=== PATIENT | female | born 1975 | race Caucasian/White ===

== ENCOUNTER → 2020-03-26 | Outpatient (CLI) | payer MEDICARE, OTHER ==
--- NOTE | 2020-03-26 09:28 | US ---
EXAMINATION TYPE: US abdomen complete DATE OF EXAM: 03/26/2020 COMPARISON: US August 25, 2010 CLINICAL HISTORY: R94.5 Abn Liver function test. Patient stated takes at least 5 medications.Gallblad willie removed per patient. EXAM MEASUREMENTS: Liver Length: 10.2 Gallbladder Wall: surgically removed CBD: 0.4m Spleen: 10.4 Right Kidney: 9.1 x 5.3 x 5.0cm Left Kidney: 9.1 x 4.4 x 4.4cm Pancreas: hyperechoic Liver: right lobe not well seen in any patient positions due to overlying bowel gas, periportal wall brightness is noted in left lobe Gallbladder: surgically removed Evidence for sonographic Kumar's sign: no CBD: wnl Spleen: multiple small granulomas noted throughout Right Kidney: No hydronephrosis or masses seen Left Kidney: No hydronephrosis or masses seen Upper IVC: wnl Abd Aorta: size is wnl,but mildly widened at upper aorta compared to mid and distal aorta Gallbladder noted surgically absent. IMPRESSION: Suboptimal study. Some heterogeneity of liver without worrisome mass or ductal dilatation . No ascites noted.
== END | disposition home or self-care (01) ==
LOC: RADUSWWP 08:04
PROVIDERS: ATTEND Family Medicine
DX: R94.5 Abnormal results of liver function studies (principal)
CPT/HCPCS: 76700

== ENCOUNTER → 2020-09-10 | Outpatient (CLI) | payer MEDICARE, OTHER ==
--- NOTE | 2020-09-10 14:18 | MM ---
Reason for exam: screening (asymptomatic). Baseline mammogram. History: Patient is nulliparous. Family history of breast cancer in paternal grandmother at age 60. Physical Findings: Nurse did not find any significant physical abnormalities on exam. MG 3D Screening Mammo W/Cad Bilateral CC and MLO view(s) were taken. Finding #1: There is a 3 mm equal density (isodense) mass in the upper outer quadrant of the right breast consistent with lymph node. Finding #2: There are typically benign calcifications in the left breast. These results were verbally communicated with the patient and result sheet given to the patient on 09/10/20. ASSESSMENT: Probably benign, BI-RAD 3 RECOMMENDATION: Follow-up diagnostic mammogram of the right breast in 6 months.
== END | disposition home or self-care (01) ==
LOC: RADMAMWWP 13:12
PROVIDERS: ATTEND Family Medicine
DX: Z12.31 Encounter for screening mammogram for malignant neoplasm of breast (principal)
CPT/HCPCS: 77063; 77067

== ENCOUNTER 2021-03-29 20:12 | Inpatient (IN) | payer MEDICARE, OTHER ==
[2021-03-29] MEDS ORDERED: SODIUM CHLORIDE 0.9% 1,000 ML IV STA (21:15)
[2021-03-29] MEDS ORDERED: fentaNYL (PF) 50 MCG/ML 2 ML AMP IVP STA (21:21)
--- NOTE | 2021-03-29 21:38 | ED ---
General Adult HPI - General Chief complaint: Abdominal Pain Stated complaint: Abdominal Pain Time Seen by Provider: 03/29/21 20:14 Source: EMS Mode of arrival: EMS Limitations: no limitations - History of Present Illness Initial comments: 45-year-old female with a past medical history of muscular dystrophy presents to the emergency room for a chief complaint of abdominal pain. Patient has had abdominal pain since this morning on the left side. Patient was seen at [facility] and diagnosed with a large ovarian cyst. Her urine pregnan cy test was negative. Lactic acid was normal at 1.1. CBC did reveal a normal hemoglobin of 14.6. Pelvic ultrasound revealed a 8.9 x 6.1 x 8.8 cm on the left ovary. There is color flow adjacent to the cyst no torsion identified. CT revealed a left ovarian cyst measuring 8.2 x 7.2 cm. No free fluid within the pelvis. No dilated tubular structure or inflammatory changes evident. - Related Data Home Medications Medication Instructions Recorded Confirmed Acyclovir 400 mg PO HS 03/29/21 03/29/21 Cholecalciferol (Vitamin D3) 125 mcg PO HS 03/29/21 03/29/21 [Vitamin D3 (125 MCG = 5,000 IU)] Escitalopram [Lexapro] 20 mg PO HS 03/29/21 03/29/21 guanFACINE HCL [guanFACINE HCL ER] 1 mg PO HS 03/29/21 03/29/21 Allergies Allergy/AdvReac Type Severity Reaction Status Date / Time hydromorphone [From Dilaudid] AdvReac Confusion Verified 03/29/21 21:28 Review of Systems ROS Statement: Those systems with pertinent positive or pertinent negative responses have been documented in the HPI. ROS Other: All systems not noted in ROS Statement are negative. Past Medical History Additional Past Medical History / Comment(s): , SORAIDA TSANG 2 History of Any Multi-Drug Resistant Organisms: None Reported Past Surgical History: Appendectomy, Cholecystectomy, Tubal Ligation Past Psychological History: Anxiety, Depression Smoking Status: Never smoker Past Alcohol Use History: None Reported Past Drug Use History: None Reported General Exam Limitations: no limitations General appearance: alert, in no apparent distress Head exam: Present: atraumatic Eye exam: Present: normal appearance, PERRL, EOMI. Absent: scleral icterus, conjunctival injection ENT exam: Present: normal exam, mucous membranes moist Neck exam: Present: normal inspection, full ROM. Absent: tenderness Respiratory exam: Present: normal lung sounds bilaterally. Absent: respiratory distress, wheezes Cardiovascular Exam: Present: regular rate, normal rhythm, normal heart sounds GI/Abdominal exam: Present: soft, tenderness (Left lower quadrant abdominal tenderness.), normal bowel sounds. Absent: distended Neurological exam: Present: alert Course Vital Signs 03/29/21 03/29/21 03/29/21 20:17 20:56 22:21 Temperature 97 F L Pulse Rate 46 L 49 L 46 L Respiratory 18 18 18 Rate Blood Pressure 84/63 92/50 90/61 O2 Sat by Pulse 99 98 96 Oximetry EKG Findings - EKG Comments: EKG Findings:: Sinus bradycardia, first-degree block, ventricular rate 47, QRS duration 104, QTC 430 Medical Decision Making - Medical Decision Making Pt was transferred from [facility]. Vitals are stable. Patient's blood pressure is in the 90s over the 60s however mother states that her systolic blood pressure never gets over 100. Slight sinus bradycardia in the high 40s. EKG was obtained. No evidence of second or third degree block. Patient does have T-wave inversions, troponin normal, however is not complaining of any chest pain or shortness of breath at this time. There are no previous EKGs to compare. Only complaint is lower abdominal pain. She does have tenderness in the lower abdomen. Laboratory evaluation was repeated. Hemoglobin is consistent, was 14 here in the emergency room. As noted CT and ultrasound were reviewed which showed a large 8 cm x 7.2 cm left ovarian cyst. Ultrasound showed blood flow to the ovary on the left. No evidence for free fluid in the pelvis. Patient was given pain medication which did help somewhat with her symptoms. She was evaluated by Dr. Butler at bedside. At this time patient will be admitted to medicine with SPECIAL EDUCATION SCIENCE TEACHER consult for intractable abdominal pain. - Lab Data Result diagrams: 03/29/21 22:14 03/29/21 22:14 Lab Results 03/29/21 03/29/21 Range/Units 22:14 22:14 WBC 8.0 (3.8-10.6) k/uL RBC 4.91 (3.80-5.40) m/uL Hgb 14.0 (11.4-16.0) gm/dL Hct 46.2 H (34.0-46.0) % MCV 94.2 (80.0-100.0) fL MCH 28.5 (25.0-35.0) pg MCHC 30.2 L (31.0-37.0) g/dL RDW 14.0 (11.5-15.5) % Plt Count 204 (150-450) k/uL MPV 8.4 Neutrophils % 63 % Lymphocytes % 25 % Monocytes % 6 % Eosinophils % 3 % Basophils % 1 % Neutrophils # 5.0 (1.3-7.7) k/uL Lymphocytes # 2.0 (1.0-4.8) k/uL Monocytes # 0.4 (0-1.0) k/uL Eosinophils # 0.2 (0-0.7) k/uL Basophils # 0.1 (0-0.2) k/uL Sodium 138 (137-145) mmol/L Potassium 4.2 (3.5-5.1) mmol/L Chloride 108 H (98-107) mmol/L Carbon Dioxide 27 (22-30) mmol/L Anion Gap 3 mmol/L BUN 9 (7-17) mg/dL Creatinine 0.47 L (0.52-1.04) mg/dL Est GFR (CKD-EPI)AfAm >90 (>60 ml/min/1.73 sqM) Est GFR (CKD-EPI)NonAf >90 (>60 ml/min/1.73 sqM) Glucose 91 (74-99) mg/dL Calcium 8.1 L (8.4-10.2) mg/dL Total Bilirubin 1.5 H (0.2-1.3) mg/dL AST 202 H (14-36) U/L ALT 95 H (4-34) U/L Alkaline Phosphatase 224 H (38-126) U/L Total Protein 5.4 L (6.3-8.2) g/dL Albumin 2.9 L (3.5-5.0) g/dL HCG, Quant <2.4 mIU/mL Disposition Clinical Impression: Ovarian cyst, Intractable abdominal pain, Bradycardia Disposition: ADMITTED IP TO THIS HOSP Is patient prescribed a controlled substance at d/c from ED?: No Referrals: Janis Billy MD [Primary Care Provider] - 1-2 days Time of Disposition: 23:14
[2021-03-29 22:37] LABS: Basophils # (A) 0.1 k/uL (0-0.2); Basophils % (A) 1 %; Eosinophils # (A) 0.2 k/uL (0-0.7); Eosinophils % (A) 3 %; HCT 46.2 % (34.0-46.0); Lymphocytes % (A) 25 %; MCH 28.5 pg (25.0-35.0); MCHC 30.2 g/dL (31.0-37.0); MCV 94.2 fL (80.0-100.0); Mean Platelet Volume 8.4; Monocytes # (A) 0.4 k/uL (0-1.0); Monocytes % (A) 6 %; Neutrophils % (A) 63 %; Platelet Count 204 k/uL (150-450); RBC 4.91 m/uL (3.80-5.40)
[2021-03-29 22:40] LABS: ALT 95 U/L (4-34); AST 202 U/L (14-36); African American GFR (CKD) >90 (>60 ml/min/1.73 sqM); Albumin 2.9 g/dL (3.5-5.0); Alkaline Phosphatase 224 U/L (38-126); Anion Gap 3 mmol/L; Blood Urea Nitrogen 9 mg/dL (7-17); Calcium 8.1 mg/dL (8.4-10.2); Carbon Dioxide 27 mmol/L (22-30); Chloride 108 mmol/L (98-107); Glucose 91 mg/dL (74-99); Non-African American GFR(CKD) >90 (>60 ml/min/1.73 sqM); Potassium 4.2 mmol/L (3.5-5.1); Sodium 138 mmol/L (137-145); Total Bilirubin 1.5 mg/dL (0.2-1.3); Total Protein 5.4 g/dL (6.3-8.2)
[2021-03-29 22:56] LABS: HCG,Quantitative Serum <2.4 mIU/mL
[2021-03-29] MEDS ORDERED: traMADol 50 MG TAB PO PRN (23:15)
[2021-03-29] MEDS ORDERED: NALOXONE 0.4 MG/ML 1 ML VIAL IV PRN (23:15)
[2021-03-29] MEDS ORDERED: ACETAMINOPHEN TAB 325 MG TAB PO PRN (23:15)
[2021-03-29] MEDS ORDERED: ONDANSETRON 4 MG/2 ML VIAL IVP PRN (23:15)
[2021-03-30 00:25] LABS: Appearance,Urine Clear (Clear); Bilirubin,Urine Negative (Negative); Blood,Urine Negative (Negative); Color,Urine Yellow; Glucose,Urine (UA) Negative (Negative); Ketones,Urine Negative (Negative); Leukocyte Esterase,Urine Negative (Negative); Nitrite,Urine Negative (Negative); Protein,Urine Trace (Negative); Urobilinogen,Urine <2.0 mg/dL (<2.0)
[2021-03-30 00:27] LABS: Specific Gravity,Urine >1.050 (1.001-1.035)
[2021-03-30] MEDS: SODIUM CHLORIDE 0.9% 1,000 ML IV SCH ×4 (00:45→20:49)
--- NOTE | 2021-03-30 02:57 | P.HPIM ---
History of Present Illness H&P Date: 03/29/21 Chief Complaint: abd pain 45 year old female with muscular dystrophy comes in today as a transfer from [facility] after being diagnosed with ovarian cyst , for ELECTRONICS SCALE TESTER eval. patient started having sudden onset severe lower abd pain today, 8/10 in severity , sharp radiates to the groin, associated with nausea but no vomiting, no fever, no urinary changes no diarrhea no vaginal or GI bleeding. she denies having any similar pain in the past. no recent travel, or trauma. no bowel or urinary changes. patient HCG was negative , vaginal US showed large ovarian cyst with positive blood flow. she also has elevated liver enzymes , abd CT showed no gall stones , blood work showed normal hemoglobin , no leukocytosis , no electrolyte abnormalities. LA was wnl. patient BP was in the 90s and HR in the 40s, however, she claims that this is her baseline. EKG showed 1st degree AVB, diffuse T wave inversion , no old EKG to compare, she denies any chest pain or trouble breathing, Trops negative Review of Systems Pertinent positives as noted in HPI. All other systems were reviewed and are negative Past Medical History Additional Past Medical History / Comment(s): , SORAIDA TSANG 2 History of Any Multi-Drug Resistant Organisms: None Reported Past Surgical History: Appendectomy, Cholecystectomy, Tubal Ligation Past Psychological History: Anxiety, Depression Smoking Status: Never smoker Past Alcohol Use History: None Reported Past Drug Use History: None Reported - Past Family History family Family Medical History: No Reported History Medications and Allergies Home Medications Medication Instructions Recorded Confirmed Type Acyclovir 400 mg PO HS 03/29/21 03/29/21 History Cholecalciferol (Vitamin D3) 125 mcg PO HS 03/29/21 03/29/21 History [Vitamin D3 (125 MCG = 5,000 IU)] Escitalopram [Lexapro] 20 mg PO HS 03/29/21 03/29/21 History guanFACINE HCL [guanFACINE HCL ER] 1 mg PO HS 03/29/21 03/29/21 History Allergies Allergy/AdvReac Type Severity Reaction Status Date / Time hydromorphone [From Dilaudid] AdvReac Confusion Verified 03/29/21 21:28 Physical Exam Vitals: Vital Signs Temp Pulse Resp BP Pulse Ox 03/29/21 22:21 46 L 18 90/61 96 03/29/21 20:56 49 L 18 92/50 98 03/29/21 20:17 97 F L 46 L 18 84/63 99 Intake and Output 03/29/21 03/29/21 03/30/21 14:59 22:59 06:59 Other: Weight 81.647 kg Constitutional: No acute distress, conversant, pleasant Eyes: Anicteric sclerae, moist conjunctiva, Pupils equal round reactive to light ENMT: NC/AT Oropharynx clear, no erythema, or exudates Neck: Supple, FROM, no masses, or JVD No carotid bruits No thyromegaly Lungs: Clear to auscultation Clear to percussion Normal respiratory effort, no accessory muscle use Cardiovascular: Heart regular in rate and rhythm, No murmurs, gallops, or rubs No peripheral edema Abdominal: Soft Nontender, no guarding, rebound or rigidity Abdomen moving with respiration Normoactive bowel sounds No hepatomegaly, No splenomegaly No palpable mass No abdominal wall hernia noted Skin: Normal temperature, tone, texture, turgor No induration No subcutaneous nodules No rash, lesions No ulcers Extremities: No digital cyanosis No clubbing Pedal pulses intact and symmetrical Radial pulses intact and symmetrical No calf tenderness Psychiatric: Alert and oriented to person, place and time Appropriate affect fair judgement Neuro Muscles Strength 5/5 in all 4 extremities Sensation to light touch grossly present throughout Cranial nerves II-XII grossly intact No focal sensory deficits Lymphatics: no palpable cervical or supraclavicular , or inguinal lymph nodes Results CBC & Chem 7: 03/29/21 22:14 03/29/21 22:14 Labs: Abnormal Lab Results - Last 24 Hours (Table) 03/29/21 03/29/21 Range/Units 22:14 22:14 Hct 46.2 H (34.0-46.0) % MCHC 30.2 L (31.0-37.0) g/dL Chloride 108 H (98-107) mmol/L Creatinine 0.47 L (0.52-1.04) mg/dL Calcium 8.1 L (8.4-10.2) mg/dL Total Bilirubin 1.5 H (0.2-1.3) mg/dL AST 202 H (14-36) U/L ALT 95 H (4-34) U/L Alkaline Phosphatase 224 H (38-126) U/L Total Protein 5.4 L (6.3-8.2) g/dL Albumin 2.9 L (3.5-5.0) g/dL Assessment and Plan Assessment: Large left sided ovarian cyst no evidence of torsion, blood flow is positive BHCG negative CT abd confirmed ovarian cyst , no other pathology no free fluid in the pelvis ELECTRONICS SCALE TESTER consult pain control IVF hydration with normal saline asymptomatic sinus bradycardia diffuse T wave inversion consider OP follow up no report of chest pain or SOB trops negative elevated liver enzymes no liver pathology detected on CT consider OP follow up resume home medications patient on Alpha agonist Tenex full code DVT PPX mechanical anticpated length of stay < 2 midnights anticipated discharge home
--- NOTE | 2021-03-30 09:27 | P.PN ---
<Gt Velasquez - Last Filed: 03/30/21 12:29> Subjective Progress Note Date: 03/30/21 Hospital course: Patient is a very pleasant 45-year-old female with a past medical history of m uscular dystrophy. She was transferred to our facility from [facility] after being diagnosed with a large left ovarian cyst. Patient initially presented with sudden onset severe lower abdominal pain radiating into her groin. Transvaginal ultrasound revealed a large left ovarian cyst with positive blood flow and no evidence of torsion. CT abdomen and pelvis confirmed ovarian cysts and showed no free fluid in the pelvis. HCG negative for . Upon arrival to our facility, patient was also found to have asymptomatic bradycardia with heart rate in the 40s to 50s (which patient reports is her normal baseline heart rate) and newly elevated liver enzymes with bilirubin 1.5, AST 202, ALT 95, and alkaline phosphatase of 224. Urinalysis negative for infection. EKG showing sinus bradycardia at 47 bpm with a first-degree AV block with AK interval of 264 ms and T-wave inversion in inferior, septal and anterolateral leads of II, III, aVF, and V1 through V6. No previous EKGs available for comparison. Troponin negative. Covid 19 PCR positive, patient asymptomatic denying any fever, chills, diaphoresis, chest pain, shortness of breath, dyspnea with exertion, weakness, cough, congestion, or body aches. Physical exam: Patient seen and fully evaluated at bedside this morning. She was sitting on the phone talking to her mom. She reports continued suprapubic pain/discomfort along with right lower and left lower quadrant pain. She denies having any vaginal discharge or bleeding. Denies having any urinary frequency, urgency, hematuria, or dysuria. 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 Lab reports this was likely a false negative as could have been poor specimen or possibly early onset infection. Patient to remain in contact plus droplet precautions. Awaiting CIVIL SERVICE WORKER to assess and further recommendations. Patient's heart rate in the 50s and she remains asymptomatic. Vital signs reviewed and stable. General: Nontoxic, no distress and appears stated age. Derm: Skin warm and dry, normal coloration for ethnicity. Head: Atraumatic, normocephalic and symmetric. Eyes: EOMs intact, no lid lag, and anicteric sclera Mouth: no lip lesions, mucus membranes moist Cardiovascular: regular rate and rhythm with normal S1S2, no murmur, positive posterior tibial pulses bilaterally, and cap refill < 2 seconds. Lungs: Respirations even, regular, and unlabored on room air. Lungs CTA bilaterally, no rhonchi, no rales, no wheezing, and no accessory muscle usage. Abdominal: soft, nontender to palpation, no guarding, no appreciable organomegaly Ext: ROM intact. No gross muscle atrophy, no edema, no contractures Neuro: Speech clear, face symmetrical and CN II-XII grossly intact with no noted focal neuro deficits Psych: Alert and oriented to person, place, time, and situation. Appropriate and pleasant affect. Assessment and Plan of Care: Large left ovarian cyst Lower abdominal pain -Transvaginal ultrasound revealed a large left ovarian cyst with positive blood flow and no evidence of torsion. -CT abdomen and pelvis confirmed ovarian cysts and showed no free fluid in the pelvis. -BHCG negative for . -CIVIL SERVICE WORKER consulted, awaiting recommendations. -NPO until cleared by CIVIL SERVICE WORKER -Continued hydration with IV fluids -Symptomatic care and pain management. Asymptomatic Covid 19 virus in vaccinated individual -Zinc, vitamin C, and vitamin D. -DVT prophylaxis with Lovenox -We will obtain inflammatory markers with repeat a.m. labs. -Contact plus droplet precautions to be maintained. Elevated liver enzymes Bilirubin 1.5, AST 202, ALT 95, and alkaline phosphatase of 224. No previous history of reported elevation of liver enzymes and no previous labs available for comparison. Elevated liver enzymes possibly secondary to Covid 19 virus infection vs adverse effects of medication. We will use caution with hepatotoxic medications. Hold Lexapro at this time as there is less than 1% chance Lexapro can cause hepatic failure, hepatic necrosis, hepatitis, increased liver enzymes, and increased serum bilirubin. Continued close monitoring with repeat a.m. labs. Asymptomatic bradycardia -Troponin negative per transfer document from [facility] -EKG showing sinus bradycardia at 47 bpm with a first-degree AV block with AK interval of 264 ms and T-wave inversion in inferior, septal and anterolateral leads of II, III, aVF, and V1 through V6. No previous EKGs available for comparison. Depression Continue daily medication regimen with Lexapro CODE STATUS: Full code DVT prophylaxis: Lovenox Discussed with: Patient and RN Anticipated discharge date: Clinical course to determine Anticipated discharge place: Home A total of 45 minutes was spent on the care of this complex patient more than 50% of the time was spent in counseling and care coordination. Objective - Vital Signs Vital signs: Vital Signs Temp 97.6 F 03/30/21 08:57 Pulse 60 03/30/21 08:57 Resp 16 03/30/21 08:57 BP 95/64 03/30/21 08:57 Pulse Ox 96 03/30/21 08:57 Intake & Output 03/29/21 03/30/21 03/30/21 18:59 06:59 18:59 Weight 81.647 kg - Labs CBC & Chem 7: 03/29/21 22:14 03/29/21 22:14 Labs: Abnormal Lab Results - Last 24 Hours (Table) 03/29/21 03/29/21 03/29/21 Range/Units 22:14 22:14 23:43 Hct 46.2 H (34.0-46.0) % MCHC 30.2 L (31.0-37.0) g/dL Chloride 108 H (98-107) mmol/L Creatinine 0.47 L (0.52-1.04) mg/dL Calcium 8.1 L (8.4-10.2) mg/dL Total Bilirubin 1.5 H (0.2-1.3) mg/dL AST 202 H (14-36) U/L ALT 95 H (4-34) U/L Alkaline Phosphatase 224 H (38-126) U/L Total Protein 5.4 L (6.3-8.2) g/dL Albumin 2.9 L (3.5-5.0) g/dL Ur Specific [place] >1.050 H (1.001-1.035) Urine Protein Trace H (Negative) Coronavirus (PCR) (Not Detectd) 03/29/21 Range/Units 23:47 Hct (34.0-46.0) % MCHC (31.0-37.0) g/dL Chloride (98-107) mmol/L Creatinine (0.52-1.04) mg/dL Calcium (8.4-10.2) mg/dL Total Bilirubin (0.2-1.3) mg/dL AST (14-36) U/L ALT (4-34) U/L Alkaline Phosphatase (38-126) U/L Total Protein (6.3-8.2) g/dL Albumin (3.5-5.0) g/dL Ur Specific [place] (1.001-1.035) Urine Protein (Negative) Coronavirus (PCR) Detected A (Not Detectd) <Xiomara Malik - Last Filed: 03/30/21 18:32> Objective - Vital Signs Vital signs: Vital Signs Temp 97.7 F 03/30/21 15:00 Pulse 91 03/30/21 15:00 Resp 16 03/30/21 15:00 BP 104/72 03/30/21 15:00 Pulse Ox 91 L 03/30/21 15:00 Intake & Output 03/29/21 03/30/21 03/30/21 18:59 06:59 18:59 Weight 81.647 kg 81.647 kg Other: # Voids 1 - Labs CBC & Chem 7: 03/29/21 22:14 03/29/21 22:14 Labs: Abnormal Lab Results - Last 24 Hours (Table) 03/29/21 03/29/21 03/29/21 Range/Units 22:14 22:14 23:43 Hct 46.2 H (34.0-46.0) % MCHC 30.2 L (31.0-37.0) g/dL Chloride 108 H (98-107) mmol/L Creatinine 0.47 L (0.52-1.04) mg/dL Calcium 8.1 L (8.4-10.2) mg/dL Total Bilirubin 1.5 H (0.2-1.3) mg/dL AST 202 H (14-36) U/L ALT 95 H (4-34) U/L Alkaline Phosphatase 224 H (38-126) U/L Total Protein 5.4 L (6.3-8.2) g/dL Albumin 2.9 L (3.5-5.0) g/dL Ur Specific [place] >1.050 H (1.001-1.035) Urine Protein Trace H (Negative) Coronavirus (PCR) (Not Detectd) 03/29/21 Range/Units 23:47 Hct (34.0-46.0) % MCHC (31.0-37.0) g/dL Chloride (98-107) mmol/L Creatinine (0.52-1.04) mg/dL Calcium (8.4-10.2) mg/dL Total Bilirubin (0.2-1.3) mg/dL AST (14-36) U/L ALT (4-34) U/L Alkaline Phosphatase (38-126) U/L Total Protein (6.3-8.2) g/dL Albumin (3.5-5.0) g/dL Ur Specific [place] (1.001-1.035) Urine Protein (Negative) Coronavirus (PCR) Detected A (Not Detectd) Assessment and Plan Assessment: I reviewed the documentation as provided by the MARTINA above, who is the original author of this note. I agree with the documented assessment and plan, with the following changes: None
--- NOTE | 2021-03-30 15:35 | P.CON ---
Consult Note - . Consult date: 03/30/21 Assessment/Plan:: This is a 45-year-old white female 0 last missed period March 15 which lasted for 3 days. Patient has muscular dystrophy and at physical therapy yesterday at the [facility] she developed a sharp sudden abd ominal pain. Sonogram was performed revealing a 8.9 x 6.1 x 8.8 cm clear simple cyst of the left ovary. There was no suspicion of torsion, good blood flow present. Right ovary measured 3.0 x 2.1 x 2.6 cm with good color flow. There was fluid noted in the cul-de-sac. Endometrium 91 mm, uterus measuring 8.6 x 4.2 x 4.9 cm. Patient was transferred to our hospital because of a lack of gynecologists at the [facility]. She has a positive culture test in our emergency room as of yesterday. At this time she states the pelvic pain has subsided. Past medical history is significant for muscular dystrophy, bladder incontinence, stomach problems. Past surgical history tubal ligation age 23, cholecystectomy, D&C. Gynecologic history menarche began at the age of 14 with 28-30 day interval and 3 day duration. She denies history of GC chlamydia or HPV infections. 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 She is currently sexually active with 1 partner. Social history patient is single, she has a boyfriend. She lives at home with her mom. She is unemployed. She denies tobacco, bleeding, illicit drug use. Social alcohol only. Family history mother has a history of poor health, she is in her 70s. Father age 57 of pneumonia, he was a heavy smoker. She has 3 half-brothers all of whom are healthy. A maternal grandmother has a history of breast cancer, but no other family history no cancers of the cervix, ovaries,:, Or uterus. Current medications acyclovir daily, Lexapro daily, another mood stabilizer, Lyrica daily, vitamin D3 daily, Vesicare daily. On exam patient is 5 foot 1 inch, 180 pounds, pulse 50, respirations 16, 98% O2 saturation, blood pressure 89/58. She has poor dentition. No obvious thyromegaly. Chest is clear in all villagran. Patient does have a cough. Cardiac exam reveals regular rate and rhythm. Abdomen is softly distended, no rebound or guarding. There is tenderness in bilateral lower quadrants and certainly a suggestion of fullness. Pelvic exam reveals nulliparous cervix, no CVA tenderness. Uterus is small and mobile. She does have tenderness to deep palpation in the left lower quadrant, but again no rebound noted. AST 103, ALTs 67, alk phos 224, WBC 6.0, hemoglobin 14.6, hematocrit 45.5, platelets 247,000. Electrolytes otherwise normal. Impression: 8.9 cm clear simple fluid filled left ovarian cyst, with associated pelvic pain. Pain improved over the past 24 hours. Active Co-vid infection noted. History of muscular dystrophy. Plan: At this time I would allow the patient to heal from the Covid perspective. I would not take a patient to the operating room for what appears to be a benign indication with an active respiratory/metabolic infection. OVA-1 testing has been drawn. The ovarian cyst does appear simple and benign in appearance, however the OVA-1 will help discern its etiology. Plan would be to follow-up in the office in 2 weeks. No intercourse. No heavy lifting, no further p hysical therapy. At that time we will evaluate and decide whether to proceed with conservative management and repeat the ultrasound in 2-3 months or proceed with surgical intervention. Signs and symptoms of torsion had been reviewed, none present sonographically and no signs on physical examination today. The case has been discussed with sound physicians. The patient understands the above discussion and is in agreement with this plan. Thank you for the consultation.
[2021-03-30] MEDS: CHOLECALCIFEROL 25 MCG (1000 IU) TABLET PO SCH (20:29)
[2021-03-30] MEDS ORDERED: ESCITALOPRAM 20 MG TAB PO SCH (21:00)
[2021-03-30] MEDS: guanFACINE 1 MG TAB PO SCH ×2 (22:40→22:48)
[2021-03-30] MEDS: ACYCLOVIR 200 MG CAP PO SCH (22:40)
[2021-03-31] MEDS: MORPHINE SULFATE 2 MG/ML SYRINGE IVP PRN ×2 (03:04→08:49)
[2021-03-31 07:58] LABS: ALT 199 U/L (4-34); AST 228 U/L (14-36); African American GFR (CKD) >90 (>60 ml/min/1.73 sqM); Albumin 3.1 g/dL (3.5-5.0); Albumin/Globulin Ratio 1.1; Alkaline Phosphatase 298 U/L (38-126); Anion Gap 4 mmol/L; Blood Urea Nitrogen 4 mg/dL (7-17); Carbon Dioxide 29 mmol/L (22-30); Chloride 109 mmol/L (98-107); Globulin 2.9 g/dL; Glucose 107 mg/dL (74-99); Magnesium 2.1 mg/dL (1.6-2.3); Non-African American GFR(CKD) >90 (>60 ml/min/1.73 sqM); Sodium 142 mmol/L (137-145); Total Bilirubin 1.2 mg/dL (0.2-1.3)
[2021-03-31 08:19] LABS: Potassium 4.9 mmol/L (3.5-5.1)
[2021-03-31] MEDS: ASCORBIC ACID 500 MG TAB PO SCH (08:53)
[2021-03-31] MEDS: ZINC SULFATE 220 MG CAP PO SCH (08:54)
[2021-03-31] MEDS: ENOXAPARIN 40 MG/0.4 ML SYRINGE SQ SCH (08:55)
[2021-03-31] MEDS ORDERED: REMDESIVIR 200 MG in SODIUM CHLORIDE 0.9% 250 ML IVPB ONE ×2 (09:22→17:00)
[2021-03-31] MEDS ORDERED: DEXAMETHASONE SOD PHOSPHATE 10 MG/ML 1 ML VIAL IV SCH (09:30)
[2021-03-31 09:54] LABS: HCT 52.9 % (37.2-46.3); HGB 15.3 g/dL (12.0-15.0); MCH 28.2 pg (27.0-32.0); MCHC 28.9 g/dL (32.0-37.0); MCV 97.4 fL (80.0-97.0); Mean Platelet Volume 12.4 fL (9.5-12.2); Platelet Count 205 X 10*3/uL (140-440); RBC 5.43 X 10*6/uL (4.10-5.20); RDW 14.7 % (11.5-14.5); WBC 7.76 X 10*3/uL (4.50-10.00)
[2021-03-31] MEDS: SODIUM CHLORIDE 0.9% 1,000 ML IV SCH ×3 (10:57→21:54)
--- NOTE | 2021-03-31 14:28 | CT ---
EXAMINATION TYPE: CT chest angio for PE DATE OF EXAM: 03/31/2021 COMPARISON: HISTORY: SOB, +covid CT DLP: 303.3 mGycm Automated exposure control for dose reduction was used. CONTRAST: CT Chest for pulmonary embolism performed with with IV Contrast, patient injected with 60cc mL of Iso basilia 370. FINDINGS: LUNGS: The lungs show bilateral air bronchograms, areas of consolidation, scattered perihilar groundg lass density consistent with possible underlying pneumonia. There is no pleural effusion or pneumot horax seen. The tracheobronchial tree is patent. MEDIASTINUM: There is satisfactory enhancement of the pulmonary artery and its branches, there is no CT evidence for pulmonary embolism. There are no greater than 1 cm hilar or mediastinal lymph nodes. No pericardial effusion is seen. Calcified nodule right lower lobe, calcified hilar and mediastin al nodes are present at pulmonary artery appears prominently AORTA: No additional significant abnormality is seen. OTHER: Patient is postcholecystectomy. Calcifications are scattered within the spleen.. IMPRESSION: No evident pulmonary embolism. Correlate for pneumonia, possible pulmonary artery hypertension. 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
--- NOTE | 2021-03-31 15:49 | P.PN ---
<Gt Velasquez - Last Filed: 03/31/21 15:23> Subjective Progress Note Date: 03/31/21 Hospital course: Patient is a very pleasant 45-year-old female with a past medical history of m uscular dystrophy. She was transferred to our facility from [facility] after being diagnosed with a large left ovarian cyst. Patient initially presented with sudden onset severe lower abdominal pain radiating into her groin. Transvaginal ultrasound revealed a large left ovarian cyst with positive blood flow and no evidence of torsion. CT abdomen and pelvis confirmed ovarian cysts and showed no free fluid in the pelvis. HCG negative for . Upon arrival to our facility, patient was also found to have asymptomatic bradycardia with heart rate in the 40s to 50s (which patient reports is her normal baseline heart rate) and newly elevated liver enzymes with bilirubin 1.5, AST 202, ALT 95, and alkaline phosphatase of 224. Urinalysis negative for infection. EKG showing sinus bradycardia at 47 bpm with a first-degree AV block with IL interval of 264 ms and T-wave inversion in inferior, septal and anterolateral leads of II, III, aVF, and V1 through V6. No previous EKGs available for comparison. Troponin negative. Covid 19 PCR positive, patient asymptomatic denying any fever, chills, diaphoresis, chest pain, shortness of breath, dyspnea with exertion, weakness, cough, congestion, or body aches. Physical exam: Patient seen and fully evaluated at bedside this morning. RN reports intermittent use of oxygen throughout the night. Patient does report using BiPAP with supplemental oxygen during the night secondary to her muscular dystrophy with impaired diaphragmatic muscle use. Patient currently denies feeling short of breath, cough, congestion, chest pain, palpitations or any other complaints at this time. We will obtain a CTA to rule out underlying process or PE and discontinue morphine as this may also cause hypoxia. Throughout morning patient was maintaining SpO2 greater than 92% on room air, however this afternoon patient is now requiring 3 L O2 with SpO2 of 91%. CTA was completed, negative for PE correlating for pneumonia with evidence of scattered perihilar groundglass densities and areas of consolidation. Patient being transferred from observation status to inpatient admission. Consult placed to pulmonology. Patient given first dose of Remdesevir and started on steroids with Decadron 6 mg daily. Vital signs reviewed and stable. General: Nontoxic, no distress and appears stated age. Derm: Skin warm and dry, normal coloration for ethnicity. Head: Atraumatic, normocephalic and symmetric. Eyes: EOMs intact, no lid lag, and anicteric sclera Mouth: no lip lesions, mucus membranes moist Cardiovascular: regular rate and rhythm with normal S1S2, no murmur, positive posterior tibial pulses bilaterally, and cap refill < 2 seconds. Lungs: Respirations even, regular, and unlabored on room air. Lungs CTA bilaterally, no rhonchi, no rales, no wheezing, and no accessory muscle usage. Abdominal: soft, nontender to palpation, no guarding, no appreciable organomegaly Ext: ROM intact. No gross muscle atrophy, no edema, no contractures Neuro: Speech clear, face symmetrical and CN II-XII grossly intact with no noted focal neuro deficits Psych: Alert and oriented to person, place, time, and situation. Appropriate and pleasant affect. Assessment and Plan of Care: Large left ovarian cyst Lower abdominal pain -Transvaginal ultrasound revealed a large left ovarian cyst with positive blood flow and no evidence of torsion. -CT abdomen and pelvis confirmed ovarian cysts and showed no free fluid in the pelvis. -BHCG negative for . -INSURANCE SALES PROFESSIONAL consulted, recommending patient follow-up with outpatient -Continued hydration with IV fluids -Symptomatic care and pain management. Covid 19 Pneumonia in vaccinated individual, initially asymptomatic now requiring oxygen supplementation Acute hypoxic respiratory failure secondary to Covid 19 pneumonia Muscular dystrophy with reported history of impaired diaphragmatic muscle resulting in dependence on nightly BiPAP and supplemental oxygen. -Patient initially asymptomatic, now requiring supplemental oxygen. Currently on 3 L O2 via nasal cannula with SpO2 of 91%. We will continue oxygenation as needed to maintain SpO2 greater than 90% and wean once patient tolerates. -Continue nightly BiPAP with supplemental oxygen as needed. -CTA was completed, negative for PE correlating for pneumonia with evidence of scattered perihilar groundglass densities and areas of consolidation. -Patient being transferred from observation status to inpatient admission. -Consult placed to pulmonology. -Patient given first dose of Remdesevir -Steroids with Decadron 6 mg daily. -Continue daily Zinc, vitamin C, and vitamin D. -DVT prophylaxis with Lovenox -We will obtain inflammatory markers with repeat a.m. labs. -Contact plus droplet precautions to be maintained. Elevated liver enzymes, improving Bilirubin 1.5, AST 202, ALT 95, and alkaline phosphatase of 224. No previous history of reported elevation of liver enzymes and no previous labs available for comparison. Elevated liver enzymes possibly secondary to Covid 19 virus infection and less likely vs adverse effects of medication lexapro and acyclovir. We will use caution with hepatotoxic medications. Continued close monitoring with repeat a.m. labs. Asymptomatic bradycardia -Troponin negative per transfer document from [facility] -EKG showing sinus bradycardia at 47 bpm with a first-degree AV block with IL interval of 264 ms and T-wave inversion in inferior, septal and anterolateral leads of II, III, aVF, and V1 through V6. No previous EKGs available for comparison. Depression Continue daily medication regimen with Lexapro CODE STATUS: Full code DVT prophylaxis: Lovenox Discussed with: Patient and RN Anticipated discharge date: Clinical course to determine Anticipated discharge place: Home A total of 45 minutes was spent on the care of this complex patient more than 50% of the time was spent in counseling and care coordination. Objective - Vital Signs Vital signs: Vital Signs Temp 98.2 F 03/31/21 08:48 Pulse 77 03/31/21 08:48 Resp 17 03/31/21 08:48 BP 109/67 03/31/21 08:48 Pulse Ox 91 L 03/31/21 08:48 Intake & Output 03/30/21 03/31/21 03/31/21 18:59 06:59 18:59 Intake Total 1560 Balance 1560 Weight 81.647 kg Intake: Intake, IV Titration 1560 Amount Sodium Chloride 0.9% 1, 1560 000 ml @ 130 mls/hr IV . Q7H42M [facility] Rx#:[id number] Other: # Voids 1 3 - Labs CBC & Chem 7: 03/31/21 06:12 03/31/21 06:12 Labs: Abnormal Lab Results - Last 24 Hours (Table) 03/31/21 03/31/21 03/31/21 Range/Units 06:12 06:12 06:12 RBC 5.43 H (4.10-5.20) X 10*6/uL Hgb 15.3 H (12.0-15.0) g/dL Hct 52.9 H (37.2-46.3) % MCV 97.4 H (80.0-97.0) fL MCHC 28.9 L (32.0-37.0) g/dL RDW 14.7 H (11.5-14.5) % MPV 12.4 H (9.5-12.2) fL Chloride 109 H (98-107) mmol/L BUN 4 L (7-17) mg/dL Creatinine 0.48 L (0.52-1.04) mg/dL Glucose 107 H (74-99) mg/dL AST 228 H (14-36) U/L ALT 199 H (4-34) U/L Alkaline Phosphatase 298 H (38-126) U/L C-Reactive Protein 1.2 H (<1.0) mg/dL Total Protein 6.0 L (6.3-8.2) g/dL Albumin 3.1 L (3.5-5.0) g/dL <Xiomara Malik - Last Filed: 03/31/21 18:44> Subjective Patient seen and evaluated by me independently. Patient was also seen by MARTINA, the original author of this note. I am in agreement with the subjective, physical exam, and assessment and plan as documented with the addition/changes of my exam and assessment below. Gen: awake, alert HEENT: normocephalic, atraumatic, good hearing acuity, moist mucous membranes Resp: good air exchange, breathing comfortably with no accessory muscle use, bilateral crackles CVS: good distal perfusion x 4, GI: soft, NTTP, ND : no SPT, no CVAT, muñoz catheter not present MSK: no pitting edema, no clubbing Neuro: non-focal, moving all extremities Psych: cooperative, euthymic mood Plan: CT chest Pulmonary consult Decadron Remdesivir Oxygen when necessary Follow inflammatory markers Objective - Vital Signs Vital signs: Vital Signs Temp 98.2 F 03/31/21 08:48 Pulse 76 03/31/21 15:00 Resp 18 03/31/21 15:00 BP 103/67 03/31/21 15:00 Pulse Ox 91 L 03/31/21 15:00 Intake & Output 03/30/21 03/31/21 03/31/21 18:59 06:59 18:59 Intake Total 1560 Balance 1560 Weight 81.647 kg Intake: Intake, IV Titration 1560 Amount Sodium Chloride 0.9% 1, 1560 000 ml @ 130 mls/hr IV . Q7H42M [facility] Rx#:[id number] Other: # Voids 1 3 4 - Labs CBC & Chem 7: 03/31/21 06:12 03/31/21 06:12 Labs: Abnormal Lab Results - Last 24 Hours (Table) 03/31/21 03/31/21 03/31/21 Range/Units 06:12 06:12 06:12 RBC 5.43 H (4.10-5.20) X 10*6/uL Hgb 15.3 H (12.0-15.0) g/dL Hct 52.9 H (37.2-46.3) % MCV 97.4 H (80.0-97.0) fL MCHC 28.9 L (32.0-37.0) g/dL RDW 14.7 H (11.5-14.5) % MPV 12.4 H (9.5-12.2) fL Chloride 109 H (98-107) mmol/L BUN 4 L (7-17) mg/dL Creatinine 0.48 L (0.52-1.04) mg/dL Glucose 107 H (74-99) mg/dL AST 228 H (14-36) U/L ALT 199 H (4-34) U/L Alkaline Phosphatase 298 H (38-126) U/L C-Reactive Protein 1.2 H (<1.0) mg/dL Total Protein 6.0 L (6.3-8.2) g/dL Albumin 3.1 L (3.5-5.0) g/dL
[2021-03-31] MEDS: DEXAMETHASONE SOD PHOSPHATE 10 MG/ML 1 ML VIAL IV SCH (16:19)
[2021-03-31 17:17] LABS: Erythrocyte Sedimentation Rate 4 mm/Hr (0-20)
[2021-03-31] MEDS: ACYCLOVIR 200 MG CAP PO SCH (21:03)
[2021-03-31] MEDS: ESCITALOPRAM 20 MG TAB PO SCH (21:03)
[2021-03-31] MEDS: CHOLECALCIFEROL 25 MCG (1000 IU) TABLET PO SCH (21:03)
[2021-03-31] MEDS: guanFACINE 1 MG TAB PO SCH (21:03)
[2021-04-01] MEDS: SODIUM CHLORIDE 0.9% 1,000 ML IV SCH ×2 (04:42→14:03)
[2021-04-01] MEDS: PROCHLORPERAZINE INJ 10 MG/2 ML VIAL IVP PRN ×2 (05:33→20:20)
[2021-04-01 06:50] LABS: ALT 166 U/L (4-34); AST 122 U/L (14-36); African American GFR (CKD) >90 (>60 ml/min/1.73 sqM); Albumin 2.9 g/dL (3.5-5.0); Albumin/Globulin Ratio 1.1; Alkaline Phosphatase 269 U/L (38-126); Anion Gap 4 mmol/L; Blood Urea Nitrogen 4 mg/dL (7-17); Calcium 8.9 mg/dL (8.4-10.2); Carbon Dioxide 27 mmol/L (22-30); Chloride 109 mmol/L (98-107); Globulin 2.6 g/dL; Glucose 132 mg/dL (74-99); Non-African American GFR(CKD) >90 (>60 ml/min/1.73 sqM); Potassium 4.3 mmol/L (3.5-5.1); Sodium 140 mmol/L (137-145); Total Bilirubin 0.8 mg/dL (0.2-1.3); Total Protein 5.5 g/dL (6.3-8.2)
[2021-04-01 07:55] LABS: C Reactive Protein 2.9 mg/dL (<1.0)
[2021-04-01] MEDS: DEXAMETHASONE SOD PHOSPHATE 10 MG/ML 1 ML VIAL IV SCH (08:18)
[2021-04-01] MEDS: ENOXAPARIN 40 MG/0.4 ML SYRINGE SQ SCH (08:19)
[2021-04-01] MEDS: ZINC SULFATE 220 MG CAP PO SCH (08:19)
[2021-04-01] MEDS: ASCORBIC ACID 500 MG TAB PO SCH (08:19)
[2021-04-01 09:28] LABS: Basophils # (A) 0.01 X 10*3/uL (0.00-0.10); Basophils % (A) 0.2 %; Eosinophils # (A) 0 X 10*3/uL (0.04-0.35); Eosinophils % (A) 0 %; HCT 44.7 % (37.2-46.3); HGB 13.5 g/dL (12.0-15.0); Lymphocytes # (A) 0.75 X 10*3/uL (0.90-5.00); Lymphocytes % (A) 14.8 %; MCH 29.4 pg (27.0-32.0); MCHC 30.2 g/dL (32.0-37.0); MCV 97.4 fL (80.0-97.0); Mean Platelet Volume 11.6 fL (9.5-12.2); Monocytes # (A) 0.18 X 10*3/uL (0.20-1.00); Monocytes % (A) 3.5 %; Neutrophils # (A) 4.12 X 10*3/uL (1.80-7.70); Neutrophils % (A) 81.1 %; Platelet Count 184 X 10*3/uL (140-440); RBC 4.59 X 10*6/uL (4.10-5.20); RDW 14.6 % (11.5-14.5); WBC 5.08 X 10*3/uL (4.50-10.00)
--- NOTE | 2021-04-01 11:09 | P.CNPUL ---
History of Present Illness Consult date: 04/01/21 Requesting physician: Ginger Devi Reason for consult: dyspnea, hypoxemia, abnormal CXR/CT, other Chief complaint: Abdominal pain. History of present illness: Pulmonary/critical care consult dated 04/01/2021. 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 The patient was apparently seen recently at [facility] diagnosed with a large ovarian cyst. Her urine test was negative. She also did test positive for coronavirus. Her CAT scan did reveal some bilateral infiltrates, potentially consistent with coronavirus associated pneumonia. The patient really wasn't having much in the way of pulmonary complaints although, the patient was found to be hypoxemic on room air. She was seen by [employer]MI[employer] INTER[employer] physician. Currently, the patient is a very poor historian. Very lethargic and sleepy and would not talk to me. She doesn't remember how long she's not been feeling well. She's currently on 3 L nasal cannula and getting saline at 1 30 mL an hour. Her primary care provider is Dr. Billy. She appears not to have any respiratory distress. She had a CT angiogram that was negative for pulmonary embolism. It does show evidence of bilateral infiltrates. White count 5.08, hemoglobin 13.5, hematocrit 44.7, platelet count 184,000. D-dimer is 0.38. Sodium 140, potassium 4.3, chlorides 109, CO2 27, anion gap 4, BUN and creatinine were 4 and 0.41. AST was 122, ALT 166, LDH 518, C-reactive protein 2.9, and urine was negative. Her first coronavirus testing was positive on March 29, and subsequently on March 30 was negative. Review of Systems REVIEW OF SYSTEMS: CONSTITUTIONAL: [Negative.] NEUROLOGIC: [ Negative.] HEENT: [ Negative.] CARDIAC: [Negative.] PULMONARY: [Negative.] GI: Abdominal pain. : [Negative.] RHEUMATOLOGIC: [ Negative.] IMMUNOLOGIC: [ Negative.] ENDOCRINE: [Negative. ] DERMATOLOGIC: [Negative.] Past Medical History Additional Past Medical History / Comment(s): , HERPES TYPE 2 History of Any Multi-Drug Resistant Organisms: None Reported Past Surgical History: Appendectomy, Cholecystectomy, Tubal Ligation Smoking Status: Never smoker - Past Family History family Family Medical History: No Reported History Medications and Allergies Home Medications Medication Instructions Recorded Confirmed Type Acyclovir 400 mg PO HS 03/29/21 03/29/21 History Cholecalciferol (Vitamin D3) 125 mcg PO HS 03/29/21 03/29/21 History [Vitamin D3 (125 MCG = 5,000 IU)] Escitalopram [Lexapro] 20 mg PO HS 03/29/21 03/29/21 History guanFACINE HCL [guanFACINE HCL ER] 1 mg PO HS 03/29/21 03/29/21 History Allergies Allergy/AdvReac Type Severity Reaction Status Date / Time hydromorphone [From Dilaudid] AdvReac Confusion Verified 03/29/21 21:28 Physical Exam Osteopathic Statement: *. No significant issues noted on an osteopathic structural exam other than those noted in the History and Physical/Consult. Vitals: Vital Signs Temp Pulse Resp BP Pulse Ox 04/01/21 08:00 78 18 04/01/21 07:00 98.0 F 78 18 99/63 92 L 04/01/21 01:50 98.1 F 75 18 110/64 94 L 03/31/21 20:00 98.0 F 78 18 106/69 92 L 03/31/21 15:00 76 18 103/67 91 L 03/31/21 14:00 18 03/31/21 12:59 93 L Intake and Output 03/31/21 04/01/21 04/01/21 22:59 06:59 14:59 Intake Total 20 Balance 20 Intake: IV 20 Invasive Line 1 10 Invasive Line 2 10 Other: Voiding Method Toilet Toilet Toilet # Voids 1 3 No acute distress, sleepy and lethargic, not a good historian, and can't even remember how long she's been sick. HEENT examination is grossly unremarkable. Neck supple. Full range of motion. No adenopathy thyromegaly or neck vein distention. Cardiovascular examination reveals regular rhythm rate. S1-S2 normal. No S3 or S4. No discernible murmur noted. Heart rate 70 bpm. Lungs reveal mostly clear breath sounds. The patient does not take deep breath s. Mild scattered rhonchi are noted. No wheezes or crackles. Abdomen is soft. No tenderness on palpation. Bowel sounds are noted. No masses. Extremities are intact. No cyanosis clubbing or edema. Skin is without rash or lesion. Neurologic examination is brief but nonfocal. Results - Laboratory Findings CBC and BMP: 04/01/21 05:57 04/01/21 05:57 PT/INR, D-dimer D-Dimer 0.38 mg/L FEU (<0.60) 04/01/21 05:57 Abnormal lab findings: Abnormal Labs 03/29/21 03/29/21 03/29/21 22:14 22:14 23:43 RBC Hgb Hct 46.2 H MCV MCHC 30.2 L RDW MPV Lymphocytes # Monocytes # Eosinophils # Chloride 108 H BUN Creatinine 0.47 L Glucose Calcium 8.1 L Total Bilirubin 1.5 H AST 202 H ALT 95 H Alkaline Phosphatase 224 H C-Reactive Protein Total Protein 5.4 L Albumin 2.9 L Ur Specific [place] >1.050 H Urine Protein Trace H Coronavirus (PCR) 03/29/21 03/31/21 03/31/21 23:47 06:12 06:12 RBC 5.43 H Hgb 15.3 H Hct 52.9 H MCV 97.4 H MCHC 28.9 L RDW 14.7 H MPV 12.4 H Lymphocytes # Monocytes # Eosinophils # Chloride 109 H BUN 4 L Creatinine 0.48 L Glucose 107 H Calcium Total Bilirubin AST 228 H ALT 199 H Alkaline Phosphatase 298 H C-Reactive Protein Total Protein 6.0 L Albumin 3.1 L Ur Specific [place] Urine Protein Coronavirus (PCR) Detected A 03/31/21 04/01/21 04/01/21 06:12 05:57 05:57 RBC Hgb Hct MCV 97.4 H MCHC 30.2 L RDW 14.6 H MPV Lymphocytes # 0.75 L Monocytes # 0.18 L Eosinophils # 0 L Chloride BUN Creatinine Glucose Calcium Total Bilirubin AST ALT Alkaline Phosphatase C-Reactive Protein 1.2 H 2.9 H Total Protein Albumin Ur Specific [place] Urine Protein Coronavirus (PCR) 04/01/21 05:57 RBC Hgb Hct MCV MCHC RDW MPV Lymphocytes # Monocytes # Eosinophils # Chloride 109 H BUN 4 L Creatinine 0.41 L Glucose 132 H Calcium Total Bilirubin AST 122 H ALT 166 H Alkaline Phosphatase 269 H C-Reactive Protein Total Protein 5.5 L Albumin 2.9 L Ur Specific [place] Urine Protein Coronavirus (PCR) - Diagnostic Findings CT scan - chest: image reviewed Assessment and Plan Assessment: Mild to moderate hypoxemic respiratory failure secondary to coronavirus associated pneumonia. Abdominal pain, thought to be related to an ovarian cyst. History of myotonic muscular dystrophy. History of anxiety and depression. Lifelong nontobacco user. No significant family history. Plan: Plan dated 04/01/2021. The patient herself was not a particularly good historian. I got most of the information about this patient from her nurse, Naina. The patient's current ly on 3 L nasal cannula. When she takes her oxygen off, her saturations dropped to 88%. The patient's getting saline at 130 mL an hour. He angiogram was negative for pulmonary embolus some. The patient has no known history of prior lung disease. She is a lifelong nonsmoker. The patient is on vitamin C, vitamin D3, and zinc. In addition, she is on Decadron and Lovenox. Additional recommendations and suggestions are forthcoming. I also noticed that she is on REM. I was not able to determine how long this patient has been sick. Time with Patient: Greater than 30
[2021-04-01 12:27] LABS: Ferritin 25.3 ng/mL (10.0-291.0)
--- NOTE | 2021-04-01 16:34 | P.PN ---
<Gt Velasquez - Last Filed: 04/01/21 16:21> Subjective Progress Note Date: 04/01/21 Hospital course: Patient is a very pleasant 45-year-old female with a past medical history of m uscular dystrophy. She was transferred to our facility from [facility] after being diagnosed with a large left ovarian cyst. Patient initially presented with sudden onset severe lower abdominal pain radiating into her groin. Transvaginal ultrasound revealed a large left ovarian cyst with positive blood flow and no evidence of torsion. CT abdomen and pelvis confirmed ovarian cysts and showed no free fluid in the pelvis. HCG negative for . Upon arrival to our facility, patient was also found to have asymptomatic bradycardia with heart rate in the 40s to 50s (which patient reports is her normal baseline heart rate) and newly elevated liver enzymes with bilirubin 1.5, AST 202, ALT 95, and alkaline phosphatase of 224. Urinalysis negative for infection. EKG showing sinus bradycardia at 47 bpm with a first-degree AV block with TX interval of 264 ms and T-wave inversion in inferior, septal and anterolateral leads of II, III, aVF, and V1 through V6. No previous EKGs available for comparison. Troponin negative. Covid 19 PCR positive, patient asymptomatic denying any fever, chills, diaphoresis, chest pain, shortness of breath, dyspnea with exertion, weakness, cough, congestion, or body aches. Patient demanded repeat Covid testing which was subsequently negative. Patient remained asymptomatic for approximately 24 hours and then was noted to become hypoxic req uiring supplemental oxygenation. Patient was sent down for CT PE which was negative for PE correlating for pneumonia with evidence of scattered perihilar groundglass opacities typical of Covid 19 pneumonia/pneumonitis. Physical exam: Patient seen and fully evaluated at bedside this morning. She remains on 3 L O2 via nasal cannula with SpO2 ranging from 91-92%. Patient did use CPAP throughout the night. D-dimer was negative at 0.38. CRP slightly elevated at 2.9 LDH normal findings at 518. Patient reports feeling "tired very tired". She denies having any other complaints at this time including headache, lightheadedness, dizziness, chest pain, palpitations, shortness of breath, cough, congestion, nausea, vomiting, or any other complaints. Patient received first dose of Remdesivir yesterday and scheduled to receive second dose today. Remains on Decadron, vitamin C, vitamin D, and zinc. Continue Lovenox DVT prophylaxis. Awaiting recommendations from pulmonology. Vital signs reviewed and stable. General: Nontoxic, no distress and appears stated age. Derm: Skin warm and dry, normal coloration for ethnicity. Head: Atraumatic, normocephalic and symmetric. Eyes: EOMs intact, no lid lag, and anicteric sclera Mouth: no lip lesions, mucus membranes moist Cardiovascular: regular rate and rhythm with normal S1S2, no murmur, positive posterior tibial pulses bilaterally, and cap refill < 2 seconds. Lungs: Respirations even, regular, and unlabored on room air. Lungs diminished at bases with no rhonchi, no rales, no wheezing, and no accessory muscle usage. Abdominal: soft, nontender to palpation, no guarding, no appreciable organomegaly Ext: ROM intact. No gross muscle atrophy, no edema, no contractures Neuro: Speech clear, face symmetrical and CN II-XII grossly intact with no noted focal neuro deficits Psych: Alert and oriented to person, place, time, and situation. Appropriate and pleasant affect. Assessment and Plan of Care: Covid 19 Pneumonia in vaccinated individual, initially asymptomatic now requiring oxygen supplementation Acute hypoxic respiratory failure secondary to Covid 19 pneumonia Muscular dystrophy with reported history of impaired diaphragmatic muscle resulting in dependence on nightly BiPAP and supplemental oxygen. -Patient initially asymptomatic, now requiring supplemental oxygen. Currently on 3 L O2 via nasal cannula with SpO2 of 91%. We will continue oxygenation as needed to maintain SpO2 greater than 90% and wean once patient tolerates. -Continue nightly BiPAP with supplemental oxygen as needed. -CTA was completed, negative for PE correlating for pneumonia with evidence of scattered perihilar groundglass densities and areas of consolidation. -Patient being transferred from observation status to inpatient admission. -Consult placed to pulmonology. -Remdesevir Day 2 of 5 -Steroids with Decadron 6 mg daily. Day 2 of 10 -Continue daily Zinc, vitamin C, and vitamin D. -DVT prophylaxis with Lovenox -Follow inflammatory markers. -Contact plus droplet precautions to be maintained. Large left ovarian cyst Lower abdominal pain -Transvaginal ultrasound revealed a large left ovarian cyst with positive blood flow and no evidence of torsion. -CT abdomen and pelvis confirmed ovarian cysts and showed no free fluid in the pelvis. -CG negative for . -COURT REGISTRY OFFICER consulted, recommending patient follow-up outpatient once treatment of Covid 19 virus -Symptomatic care and pain management. Elevated liver enzymes, improving Bilirubin 0.8, AST 122, ALP 166, alkaline phosphatase of 269. No previous history of reported elevation of liver enzymes and no previous labs available for comparison. Elevated liver enzymes possibly secondary to Covid 19 virus infection and less likely vs adverse effects of medication lexapro and acyclovir. We will use caution with hepatotoxic medications. Continued close monitoring with repeat a.m. labs. Asymptomatic bradycardia -Troponin negative per transfer document from [facility] -EKG showing sinus bradycardia at 47 bpm with a first-degree AV block with TX interval of 264 ms and T-wave inversion in inferior, septal and anterolateral leads of II, III, aVF, and V1 through V6. No previous EKGs available for comparison. Depression Continue daily medication regimen with Lexapro CODE STATUS: Full code DVT prophylaxis: Lovenox Discussed with: Patient and RN Anticipated discharge date: Clinical course to determine Anticipated discharge place: Home A total of 45 minutes was spent on the care of this complex patient more than 50% of the time was spent in counseling and care coordination. Objective - Vital Signs Vital signs: Vital Signs Temp 98.0 F 04/01/21 07:00 Pulse 78 04/01/21 08:00 Resp 18 04/01/21 08:00 BP 99/63 04/01/21 07:00 Pulse Ox 92 L 04/01/21 07:00 Intake & Output 03/31/21 04/01/21 04/01/21 18:59 06:59 18:59 Intake Total 20 Balance 20 Intake: IV 20 Invasive Line 1 10 Invasive Line 2 10 Other: Voiding Method Toilet Toilet # Voids 4 3 - Labs CBC & Chem 7: 04/01/21 05:57 04/01/21 05:57 Labs: Abnormal Lab Results - Last 24 Hours (Table) 04/01/21 04/01/21 04/01/21 Range/Units 05:57 05:57 05:57 MCV 97.4 H (80.0-97.0) fL MCHC 30.2 L (32.0-37.0) g/dL RDW 14.6 H (11.5-14.5) % Lymphocytes # 0.75 L (0.90-5.00) X 10*3/uL Monocytes # 0.18 L (0.20-1.00) X 10*3/uL Eosinophils # 0 L (0.04-0.35) X 10*3/uL Chloride 109 H (98-107) mmol/L BUN 4 L (7-17) mg/dL Creatinine 0.41 L (0.52-1.04) mg/dL Glucose 132 H (74-99) mg/dL AST 122 H (14-36) U/L ALT 166 H (4-34) U/L Alkaline Phosphatase 269 H (38-126) U/L C-Reactive Protein 2.9 H (<1.0) mg/dL Total Protein 5.5 L (6.3-8.2) g/dL Albumin 2.9 L (3.5-5.0) g/dL <Xiomara Malik - Last Filed: 04/01/21 17:11> Subjective I reviewed the documentation as provided by the MARTINA above, who is the original author of this note. I agree with the documented assessment and plan, with the following changes: remdesivir was canceled today Objective - Vital Signs Vital signs: Vital Signs Temp 97.9 F 04/01/21 14:33 Pulse 67 04/01/21 14:33 Resp 18 04/01/21 14:33 BP 100/65 04/01/21 14:33 Pulse Ox 91 L 04/01/21 14:33 Intake & Output 03/31/21 04/01/21 04/01/21 18:59 06:59 18:59 Intake Total 20 Balance 20 Intake: IV 20 Invasive Line 1 10 Invasive Line 2 10 Other: Voiding Method Toilet Toilet # Voids 4 3 2 - Labs CBC & Chem 7: 04/01/21 05:57 04/01/21 05:57 Labs: Abnormal Lab Results - Last 24 Hours (Table) 04/01/21 04/01/21 04/01/21 Range/Units 05:57 05:57 05:57 MCV 97.4 H (80.0-97.0) fL MCHC 30.2 L (32.0-37.0) g/dL RDW 14.6 H (11.5-14.5) % Lymphocytes # 0.75 L (0.90-5.00) X 10*3/uL Monocytes # 0.18 L (0.20-1.00) X 10*3/uL Eosinophils # 0 L (0.04-0.35) X 10*3/uL Chloride 109 H (98-107) mmol/L BUN 4 L (7-17) mg/dL Creatinine 0.41 L (0.52-1.04) mg/dL Glucose 132 H (74-99) mg/dL AST 122 H (14-36) U/L ALT 166 H (4-34) U/L Alkaline Phosphatase 269 H (38-126) U/L C-Reactive Protein 2.9 H (<1.0) mg/dL Total Protein 5.5 L (6.3-8.2) g/dL Albumin 2.9 L (3.5-5.0) g/dL
[2021-04-01] MEDS: CHOLECALCIFEROL 25 MCG (1000 IU) TABLET PO SCH (20:20)
[2021-04-01] MEDS: guanFACINE 1 MG TAB PO SCH (20:20)
[2021-04-01] MEDS: ESCITALOPRAM 20 MG TAB PO SCH (20:20)
[2021-04-01] MEDS: ACYCLOVIR 200 MG CAP PO SCH (20:20)
[2021-04-02] MEDS: PROCHLORPERAZINE INJ 10 MG/2 ML VIAL IVP PRN (06:14)
--- NOTE | 2021-04-02 09:09 | P.CRDCN ---
History of Present Illness Consult date: 04/02/21 History of present illness: CHIEF COMPLAINT: Sinus pause HISTORY OF PRESENT ILLNESS: This is a 45-year-old female with a past medical history significant for muscular dystrophy with impaired diaphragmatic muscle with nightly CPAP use and depression. Patient does not follow with a chemistry technical officer. We have been asked to see the patient in consultation for sinus pauses. Patient was originally at [facility] and transferred to [facility] secondary to large left ovarian cyst. Patient was also found to be positive for Covid 19. Patient apparently has a low heart rate at baseline. She does not take beta blockers. Telemetry overnight revealed 2-3 second pauses. Patient usually wears a CPAP overnight, however, she did not wear it last night. Patient was asymptomatic. Patient has no complaints of chest pain or pressure. DIAGNOSTICS: EKG reveals sinus mechanism with diffuse T-wave inversions. First degree AV block. Chest CTA: No evident pulmonary embolus and. Correlate for pneumonia, possible pulmonary artery hypertension. Laboratory data: WBC 5.08. Hemoglobin 13.5. Platelet count 184. Sodium 140. Potassium 4.3. BUN 4. Creatinine 0.41. D-dimer 0.38. AST 122. ALT 166. Alkaline phosphatase 269. Current home cardiac medications include none REVIEW OF SYSTEMS: Thorough review of systems not completed secondary to limited evaluation/examination due to Covid19 PHYSICAL EXAM: Thorough physical exam not completed secondary to limited evaluation/examination due to Covid19 ASSESSMENT: Covid 19 pneumonia Acute hypoxic respiratory failure Muscular dystrophy with impaired diaphragmatic muscle with nightly CPAP use Sinus pauses Asymptomatic bradycardia Elevated LFTs Large left ovarian cyst Depression PLAN: Obtain 2D echo to assess cardiac structure and function Avoid AV maciej blocking agents Check TSH Continue telemetry monitoring Recommend use of CPAP overnight Further recommendations pending patient course Nurse practitioner note has been reviewed by physician. Signing provider agrees with the documented findings, assessment, and plan of care. Past Medical History Additional Past Medical History / Comment(s): , HERPES TYPE 2 History of Any Multi-Drug Resistant Organisms: None Reported Past Surgical History: Appendectomy, Cholecystectomy, Tubal Ligation Smoking Status: Never smoker - Past Family History family Family Medical History: No Reported History Medications and Allergies Home Medications Medication Instructions Recorded Confirmed Type Acyclovir 400 mg PO HS 03/29/21 03/29/21 History Cholecalciferol (Vitamin D3) 125 mcg PO HS 03/29/21 03/29/21 History [Vitamin D3 (125 MCG = 5,000 IU)] Escitalopram [Lexapro] 20 mg PO HS 03/29/21 03/29/21 History guanFACINE HCL [guanFACINE HCL ER] 1 mg PO HS 03/29/21 03/29/21 History Allergies Allergy/AdvReac Type Severity Reaction Status Date / Time hydromorphone [From Dilaudid] AdvReac Confusion Verified 03/29/21 21:28 Physical Exam Vitals: Vital Signs Temp Pulse Resp BP Pulse Ox 04/02/21 04:10 53 L 15 100/57 94 L 04/01/21 22:45 97.5 F L 60 17 132/73 91 L 04/01/21 19:51 97.6 F 53 L 18 111/64 90 L 04/01/21 14:33 97.9 F 67 18 100/65 91 L 04/01/21 14:00 78 18 Intake and Output 04/01/21 04/02/21 04/02/21 22:59 06:59 14:59 Other: Voiding Method Toilet Toilet # Voids 1 1 Weight 71 kg Results 04/01/21 05:57 04/01/21 05:57 CBC 04/01/21 Range/Units 05:57 WBC 5.08 (4.50-10.00) X 10*3/uL RBC 4.59 (4.10-5.20) X 10*6/uL Hgb 13.5 (12.0-15.0) g/dL Hct 44.7 (37.2-46.3) % Plt Count 184 (140-440) X 10*3/uL Current Medications Generic Name Dose Route Start Last Admin Trade Name Freq PRN Reason Stop Dose Admin Acetaminophen 650 mg 03/29/21 23:15 03/31/21 14:24 Acetaminophen Tab 325 Mg Tab PO 650 mg Q6HR PRN Administration Mild Pain or Fever > 100.5 Acyclovir 400 mg 03/30/21 21:00 04/01/21 20:20 Acyclovir 200 Mg Cap PO 400 mg HS KEVEN Administration Ascorbic Acid 1,000 mg 03/31/21 09:00 04/01/21 08:19 Ascorbic Acid 500 Mg Tab PO 1,000 mg DAILY KEVEN Administration Cholecalciferol 125 mcg 03/30/21 21:00 04/01/21 20:20 Cholecalciferol 25 Mcg (1000 Iu) Tablet PO 125 mcg HS KEVEN Administration Dexamethasone Sodium Phosphate 6 mg 03/31/21 15:30 04/01/21 08:18 Dexamethasone Sod Phosphate 10 Mg/Ml 1 Ml Vial IV 6 mg DAILY KEVEN Administration Enoxaparin Sodium 40 mg 03/31/21 09:00 04/01/21 08:19 Enoxaparin 40 Mg/0.4 Ml Syringe SQ 40 mg DAILY KEVEN Administration Escitalopram Oxalate 20 mg 03/31/21 21:00 04/01/21 20:20 Escitalopram 20 Mg Tab PO 20 mg HS KEVEN Administration Guanfacine HCl 1 mg 03/30/21 21:00 04/01/21 20:20 Guanfacine 1 Mg Tab PO 1 mg HS KEVEN Administration Naloxone HCl 0.2 mg 03/29/21 23:15 Naloxone 0.4 Mg/Ml 1 Ml Vial IV Q2M PRN Opioid Reversal Prochlorperazine Edisylate 10 mg 03/30/21 08:48 04/02/21 06:14 Prochlorperazine Inj 10 Mg/2 Ml Vial IVP 10 mg Q6H PRN Administration Nausea Tramadol HCl 50 mg 03/29/21 23:15 03/30/21 20:28 Tramadol 50 Mg Tab PO 50 mg Q6H PRN Administration Moderate Pain Zinc Sulfate 220 mg 03/31/21 09:00 04/01/21 08:19 Zinc Sulfate 220 Mg Cap PO 220 mg DAILY KEVEN Administration Intake and Output 04/01/21 04/02/21 04/02/21 22:59 06:59 14:59 Other: Voiding Method Toilet Toilet # Voids 1 1 Weight 71 kg 04/01/21 05:57 04/01/21 05:57
[2021-04-02] MEDS: ENOXAPARIN 40 MG/0.4 ML SYRINGE SQ SCH (09:18)
[2021-04-02] MEDS: ASCORBIC ACID 500 MG TAB PO SCH (09:18)
[2021-04-02] MEDS: ZINC SULFATE 220 MG CAP PO SCH (09:18)
[2021-04-02] MEDS: DEXAMETHASONE SOD PHOSPHATE 10 MG/ML 1 ML VIAL IV SCH (09:18)
[2021-04-02 10:32] LABS: T4, Free (Free Thyroxine) 1.18 ng/dL (0.78-2.19)
--- NOTE | 2021-04-02 13:28 | P.PN ---
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 The patient was apparently seen recently at [facility] diagnosed with a large ovarian cyst. Her urine test was negative. She also did test positive for coronavirus. Her CAT scan did reveal some bilateral infiltrates, potentially consistent with coronavirus associated pneumonia. The patient really wasn't having much in the way of pulmonary complaints although, the patient was found to be hypoxemic on room air. She was seen by HEAD OF VISUAL MERCHANDISING physician. Currently, the patient is a very poor historian. Very lethargic and sleepy and would not talk to me. She doesn't remember how long she's not been feeling well. She's currently on 3 L nasal cannula and getting saline at 1 30 mL an hour. Her primary care provider is Dr. Billy. She appears not to have any respiratory distress. She had a CT angiogram that was negative for pulmonary embolism. It does show evidence of bilateral infiltrates. White count 5.08, hemoglobin 13.5, hematocrit 44.7, platelet count 184,000. D-dimer is 0.38. Sodium 140, potassium 4.3, chlorides 109, CO2 27, anion gap 4, BUN and creatinine were 4 and 0.41. AST was 122, ALT 166, LDH 518, C-reactive protein 2.9, and urine was negative. Her first coron avirus testing was positive on March 29, and subsequently on March 30 was negative. The patient is seen today to 04/02/2021 in follow-up on the selective care unit. She is currently resting comfortably in bed. She still somewhat drowsy. She does awake to verbal stimuli. She is maintaining O2 saturations in the 90s on 3 L/m per nasal cannula. She's been afebrile. Hemodynamically stable. She is continued on Decadron, Lovenox, vitamin supplements. Objective - Vital Signs Vital signs: Vital Signs Temp 98.2 F 04/02/21 08:00 Pulse 71 04/02/21 12:00 Resp 18 04/02/21 12:00 BP 127/61 04/02/21 12:00 Pulse Ox 89 L 04/02/21 12:00 Intake & Output 04/01/21 04/02/2121 18:59 06:59 18:59 Weight 71 kg Other: Voiding Method Toilet Toilet # Voids 2 1 1 # Bowel Movements 1 - Exam 45-year-old female patient. No acute distress, sleepy and lethargic, not a good historian, on 3 L nasal cannula HEENT examination is grossly unremarkable. Neck supple. Full range of motion. No adenopathy thyromegaly or neck vein dis tention. Cardiovascular examination reveals regular rhythm rate. S1-S2 normal. No S3 or S4. No discernible murmur noted. Heart rate 70 bpm. Lungs reveal mostly clear breath sounds. The patient does not take deep breaths. Mild scattered rhonchi are noted. No wheezes or crackles. Abdomen is soft. No tenderness on palpation. Bowel sounds are noted. No masses. Extremities are intact. No cyanosis clubbing or edema. Skin is without rash or lesion. Neurologic examination is brief but nonfocal. - Labs CBC & Chem 7: 04/01/21 05:57 04/01/21 05:57 Labs: Abnormal Lab Results - Last 24 Hours (Table) 04/01/21 Range/Units 05:57 TSH 0.247 L (0.465-4.680) mIU/L Assessment and Plan Assessment: 1 Mild to moderate hypoxemic respiratory failure secondary to coronavirus associated pneumonia. 2 Abdominal pain, thought to be related to an ovarian cyst. 3 History of myotonic muscular dystrophy. 4 History of anxiety and depression. 5 Lifelong nontobacco user. Plan: The patient was seen and evaluated by Dr. Dorsey Titrate the FiO2 as tolerated Continue the current treatment plan Follow-up chest x-ray and labs in a.m. I, the cosigning physician, performed a history & physical examination of the patient. Lungs sounds with crackles in the posterior bases. Maintaining good O2 saturations in the 90s on 3 L/m per nasal cannula I discussed the assessment and plan of care with my nurse practitioner, Amarilys Bowman. I attest to the above note as dictated by her.
--- NOTE | 2021-04-02 16:59 | P.PN ---
Subjective Progress Note Date: 04/02/21 No significant events overnight. Patient remains on 3 L of oxygen, saturation has been in the low 90s at rest. She denies any shortness of breath except when ambulating. No chest pain, no cough, no fevers or chills Objective - Vital Signs Vital signs: Vital Signs Temp 98.2 F 04/02/21 08:00 Pulse 71 04/02/21 12:00 Resp 18 04/02/21 12:00 BP 127/61 04/02/21 12:00 Pulse Ox 89 L 04/02/21 12:00 Intake & Output 04/01/21 04/02/21 04/02/21 18:59 06:59 18:59 Intake Total 240 Balance 240 Weight 71 kg Intake: Oral 240 Other: Voiding Method Toilet Toilet # Voids 2 1 1 # Bowel Movements 1 - Exam Vital signs reviewed and stable. General: Nontoxic, no distress and appears stated age. Derm: Skin warm and dry, normal coloration for ethnicity. Head: Atraumatic, normocephalic and symmetric. Eyes: EOMs intact, no lid lag, and anicteric sclera Mouth: no lip lesions, mucus membranes moist Cardiovascular: regular rate and rhythm with normal S1S2, no murmur, positive posterior tibial pulses bilaterally, and cap refill < 2 seconds. Lungs: Respirations even, regular, and unlabored on room air. Lungs diminished at bases with no rhonchi, no rales, no wheezing, and no accessory muscle usage. Abdominal: soft, nontender to palpation, no guarding, no appreciable organomegaly Ext: ROM intact. No gross muscle atrophy, no edema, no contractures Neuro: Speech clear, face symmetrical and CN II-XII grossly intact with no noted focal neuro deficits - Labs CBC & Chem 7: 04/01/21 05:57 04/01/21 05:57 Labs: Abnormal Lab Results - Last 24 Hours (Table) 04/01/21 Range/Units 05:57 TSH 0.247 L (0.465-4.680) mIU/L Assessment and Plan Plan: Covid 19 Pneumonia in vaccinated individual Currently on 3 L of oxygen via nasal cannula -Remdesevir Day 3 of 5 -Steroids with Decadron 6 mg daily. Day 3 of 10 -Continue daily Zinc, vitamin C, and vitamin D. -DVT prophylaxis with Lovenox -Follow inflammatory markers. -Contact plus droplet precautions to be maintained -Muscular dystrophy with reported history of impaired diaphragmatic muscle resulting in dependence on nightly BiPAP and supplemental oxygen -Patient further input from pulmonology Acute hypoxic respiratory failure -Secondary to above -Currently on 3 L of oxygen via nasal cannula, no history of home oxygen use -Maintain saturation at 90% Large left ovarian cyst Lower abdominal pain -Transvaginal ultrasound revealed a large left ovarian cyst with positive blood flow and no evidence of torsion. -CT abdomen and pelvis confirmed ovarian cysts and showed no free fluid in the pelvis. -BHCG negative for . -MORTGAGE SPECIALIST consulted, recommending patient follow-up outpatient once treated for Covid 19 -Symptomatic care and pain management. Elevated liver enzymes, improving Bilirubin 0.8, AST 122, ALP 166, alkaline phosphatase of 269. No previous history of reported elevation of liver enzymes and no previous labs available for comparison. Elevated liver enzymes possibly secondary to Covid 19 virus infection and less likely vs adverse effects of medication lexapro and acyclovir. Continued close monitoring with repeat a.m. labs. Asymptomatic bradycardia -Troponin negative per transfer document from [facility] -EKG showing sinus bradycardia at 47 bpm with a first-degree AV block with KS interval of 264 ms and T-wave inversion in inferior, septal and anterolateral leads of II, III, aVF, and V1 through V6. No previous EKGs available for comparison. -EKG changes could be due to dilution of pericarditis which initially presented with diffuse ST elevation -Follow up on 2-D echo Depression Continue daily medication regimen with Lexapro Time with Patient: Greater than 30
[2021-04-02] MEDS: guanFACINE 1 MG TAB PO SCH (21:16)
[2021-04-02] MEDS: ACYCLOVIR 200 MG CAP PO SCH (21:16)
[2021-04-02] MEDS: CHOLECALCIFEROL 25 MCG (1000 IU) TABLET PO SCH (21:17)
[2021-04-02] MEDS: ESCITALOPRAM 20 MG TAB PO SCH (21:17)
[2021-04-03 08:30] LABS: ALT 117 U/L (4-34); AST 46 U/L (14-36); African American GFR (CKD) >90 (>60 ml/min/1.73 sqM); Albumin 3.1 g/dL (3.5-5.0); Alkaline Phosphatase 223 U/L (38-126); Anion Gap 5 mmol/L; Blood Urea Nitrogen 11 mg/dL (7-17); Calcium 9.1 mg/dL (8.4-10.2); Carbon Dioxide 30 mmol/L (22-30); Chloride 104 mmol/L (98-107); Glucose 90 mg/dL (74-99); LDH 372 U/L (313-618); Magnesium 2.1 mg/dL (1.6-2.3); Non-African American GFR(CKD) >90 (>60 ml/min/1.73 sqM); Potassium 3.8 mmol/L (3.5-5.1); Sodium 139 mmol/L (137-145); Total Bilirubin 1.1 mg/dL (0.2-1.3); Total Protein 5.8 g/dL (6.3-8.2)
[2021-04-03 09:15] LABS: Basophils % (A) 1 %; Eosinophils # (A) 0.1 k/uL (0-0.7); Eosinophils % (A) 1 %; HGB 14.6 gm/dL (11.4-16.0); Lymphocytes # (A) 1.9 k/uL (1.0-4.8); Lymphocytes % (A) 24 %; MCHC 32.4 g/dL (31.0-37.0); MCV 92.8 fL (80.0-100.0); Mean Platelet Volume 12.9; Monocytes # (A) 0.7 k/uL (0-1.0); Monocytes % (A) 8 %; Neutrophils # (A) 5.1 k/uL (1.3-7.7); Neutrophils % (A) 64 %; Platelet Count 153 k/uL (150-450); RBC 4.85 m/uL (3.80-5.40); RDW 14.6 % (11.5-15.5)
[2021-04-03] MEDS: ENOXAPARIN 40 MG/0.4 ML SYRINGE SQ SCH (09:15)
[2021-04-03] MEDS: ZINC SULFATE 220 MG CAP PO SCH (09:15)
[2021-04-03] MEDS: DEXAMETHASONE SOD PHOSPHATE 10 MG/ML 1 ML VIAL IV SCH (09:15)
[2021-04-03] MEDS: ASCORBIC ACID 500 MG TAB PO SCH (09:15)
--- NOTE | 2021-04-03 09:25 | XR ---
EXAMINATION TYPE: XR chest 1V portable DATE OF EXAM: 04/03/2021 COMPARISON: 05/31/2011 HISTORY: 45 years Female. STUDY INDICATION GIVEN: CoVID pneumonia . TECHNIQUE: Portable upright chest radiograph IMPRESSION: The lung volumes are low. There are bibasilar left greater than right opacities concerning for multifocal pneumonia. Small left pleural effusion. No significant pleural effusion on the right. No pneumothorax. No cardiomegaly. No acute osseous abnormality. Cholecystectomy clips noted.
--- NOTE | 2021-04-03 09:46 | ECHOF ---
Referral Reason:LV function MEASUREMENTS -------- HEIGHT: 154.9 cm WEIGHT: 70.8 kg BP: 100/57 RVIDd: 3.0 cm (< 3.3) IVSd: 1.1 cm (0.6 - 1.1) LVIDd: 4.0 cm (3.9 - 5.3) LVPWd: 1.1 cm (0.6 - 1.1) IVSs: 1.3 cm LVIDs: 2.4 cm LVPWs: 1.5 cm LAESV Index (A-L): 30.41 ml/m Ao Diam: 2.2 cm (2.0 - 3.7) AV Cusp: 1.5 cm (1.5 - 2.6) MV EXCURSION: 17.918 mm (> 18.000) MV EF SLOPE: 51 mm/s (70 - 150) EPSS: 0.3 cm MV E Conor: 0.89 m/s MV DecT: 234 ms MV A Conor: 0.49 m/s MV E/A Ratio: 1.80 RAP: 5.00 mmHg RVSP: 23.88 mmHg FINDINGS -------- Sinus rhythm. This was a technically adequate study. The left ventricular size is normal. There is borderline concentric left ventricular hypertrophy. Overall left ventricular systolic function is normal with, an EF between 55 - 60 %. The diastolic filling pattern is normal for the age of the patient 10.94. The right ventricle is normal in size. LA is midly dilated 29-33ml/m2. The right atrial size is normal. Interatrial and interventricular septum intact. The aortic valve is trileaflet and appears structurally normal. There is no evidence of aortic regu rgitation. There is no evidence of aortic stenosis. Mild mitral regurgitation is present. Mild tricuspid regurgitation present. There is no evidence of pulmonary hypertension. The right v entricular systolic pressure, as measured by Doppler, is 23.88mmHg. There is no pulmonic regurgitation present. The aortic root size is normal. IVC Not well visulized. There is no pericardial effusion. CONCLUSIONS -------- 1. The left ventricular size is normal. 2. There is borderline concentric left ventricular hypertrophy. 3. Overall left ventricular systolic function is normal with, an EF between 55 - 60 %. 4. The diastolic filling pattern is normal for the age of the patient 10.94 5. LA is midly dilated 29-33ml/m2. 6. Mild mitral regurgitation is present. 7. Mild tricuspid regurgitation present. EDUCATIONAL TECHNOLOGY COORDINATOR: Rebecca Landers RDCS
[2021-04-03 09:54] LABS: Large Platelets Present
--- NOTE | 2021-04-03 10:19 | P.PN ---
Subjective Progress Note Date: 04/03/21 CHIEF COMPLAINT: Sinus pause HISTORY OF PRESENT ILLNESS: This is a 45-year-old female with a past medical history significant for muscular dystrophy with impaired diaphragmatic muscle with nightly CPAP use and depression. Patient does not follow with a cardiolo gist. We have been asked to see the patient in consultation for sinus pauses. Patient was originally at [facility] and transferred to [facility] secondary to large left ovarian cyst. Patient was also found to be positive for Covid 19. Patient apparently has a low heart rate at baseline. She does not take beta blockers. Telemetry overnight revealed 2-3 second pauses. Patient usually wears a CPAP overnight, however, she did not wear it last night. Patient was asymptomatic. Patient has no complaints of chest pain or pressure. DIAGNOSTICS: EKG reveals sinus mechanism with diffuse T-wave inversions. First degree AV block. Chest CTA: No evident pulmonary embolus and. Correlate for pneumonia, possible pulmonary artery hypertension. Laboratory data: WBC 5.08. Hemoglobin 13.5. Platelet count 184. Sodium 140. Potassium 4.3. BUN 4. Creatinine 0.41. D-dimer 0.38. AST 122. ALT 166. Alkaline phosphatase 269. Current home cardiac medications include none 04/03/2021 Patient had an echocardiogram performed revealing ejection fraction 55-60%, mild mitral regurgitation, and mild tricuspid regurgitation. Per nursing, the pa joyce wore her CPAP overnight with improvement in sinus pauses. Patient has no complains of chest pain or pressure. Vital signs are stable. PHYSICAL EXAM: Thorough physical exam not completed secondary to limited evaluation/examination due to Covid19 ASSESSMENT: Covid 19 pneumonia Acute hypoxic respiratory failure Muscular dystrophy with impaired diaphragmatic muscle with nightly CPAP use Sinus pauses Asymptomatic bradycardia Elevated LFTs Large left ovarian cyst Depression PLAN: Patient is currently stable from a cardiac perspective. We will sign off. Please reconsult if needed. Nurse practitioner note has been reviewed by physician. Signing provider agrees with the documented findings, assessment, and plan of care. Objective - Vital Signs Vital signs: Vital Signs Temp 97.8 F 04/03/21 08:00 Pulse 68 04/03/21 08:00 Resp 18 04/03/21 08:00 BP 101/64 04/03/21 08:00 Pulse Ox 94 L 04/03/21 08:00 Intake & Output 10/04/03/21 04/03/21 18:59 06:59 18:59 Intake Total 480 120 Balance 480 120 Weight 71.3 kg Intake: Oral 480 120 Other: Voiding Method Toilet # Voids 1 1 1 # Bowel Movements 1 0 - Labs CBC & Chem 7: 04/03/21 07:47 04/03/21 07:47 Labs: Abnormal Lab Results - Last 24 Hours (Table) 04/03/21 04/03/21 Range/Units 07:47 07:47 D-Dimer 0.79 H (<0.60) mg/L FEU Creatinine 0.40 L (0.52-1.04) mg/dL AST 46 H (14-36) U/L ALT 117 H (4-34) U/L Alkaline Phosphatase 223 H (38-126) U/L C-Reactive Protein 1.0 H (<1.0) mg/dL Total Protein 5.8 L (6.3-8.2) g/dL Albumin 3.1 L (3.5-5.0) g/dL
[2021-04-03] MEDS ORDERED: PIPERACILLIN-TAZOBACTAM 3.375 GM in SODIUM CHLORIDE 0.9% 100 ML IVPB SCH (12:00)
--- NOTE | 2021-04-03 14:23 | P.PN ---
Subjective Progress Note Date: 04/03/21 Principal diagnosis: Dyspnea, hypoxia, COVID-19 pneumonia 45-year-old female with a history of myotonic muscular dystrophy, presents to the emergency department for abdominal pain. The patient was apparently seen recently at [facility] diagnosed with a large ovarian cyst. Her urine test was negative. She also did test positive for coronavirus. Her CAT scan did reveal some bilateral infiltrates, potentially consistent with coronavirus associated pneumonia. The patient really wasn't having much in the way of pulmonary complaints although, the patient was found to be hypoxemic on room air. She was seen by [employer] physician. Currently, the patient is a very poor historian. Very lethargic and sleepy and would not talk to me. She doesn't remember how long she's not been feeling well. She's currently on 3 L nasal cannula and getting saline at 1 30 mL an hour. Her primary care provider is Dr. Billy. She appears not to have any respiratory distress. She had a CT angiogram that was negative for pulmonary embolism. It does show evidence of bilateral infiltrates. White count 5.08, hemoglobin 13.5, hematocrit 44.7, platelet count 184,000. D-dimer is 0.38. Sodium 140, potassium 4.3, chlorides 109, CO2 27, anion gap 4, BUN and creatinine were 4 and 0.41. AST was 122, ALT 166, LDH 518, C-reactive protein 2.9, and urine was negative. Her first coronavirus testing was positive on March 29, and subsequently on March 30 was negative. The patient is seen today to 04/02/2021 in follow-up on the selective care unit. She is currently resting comfortably in bed. She still somewhat drowsy. She does awake to verbal stimuli. She is maintaining O2 saturations in the 90s on 3 L/m per nasal cannula. She's been afebrile. Hemodynamically stable. She is continued on Decadron, Lovenox, vitamin supplements. On 04/03/2021 patient seen in follow-up on selective care unit, she is currently on room air, she has been ambulating to the bathroom, breathing fairly comfortably, no complaints of worsening dyspnea, no cough or chest pain. When in bed she is on 2 L of oxygen on pulse ox is 92-94%, she's been afebrile, no altered mentation, no hemoptysis. Her chest x-ray today shows low lung volumes, bibasilar left greater than right opacities concerning for multifocal pneumonia, small left pleural effusion, no cardiomegaly, her CTA chest was negative for pulmonary embolism, it did show bilateral air bronchograms, areas of cons olidation, and scattered perihilar groundglass density consistent with possible underlying pneumonia. Patient continues on Decadron 6 mg daily, she is on prophylactic Lovenox, she is on COVID-19 vitamins. Patient has history of muscular dystrophy, and yesterday she was quite lethargic on physical examination, there is a possibility of underlying history of pneumonia, possibly related to aspiration. We'll add Zosyn for empiric antibiotic coverage, today's labs have been reviewed, white blood cell count is 8.0, hemoglobin is 14.6, d- dimer 0.79, electrolytes and renal profile were unremarkable. Her LFTs were elevated. Objective - Vital Signs Vital signs: Vital Signs Temp 97.8 F 04/03/21 08:00 Pulse 59 L 04/03/21 12:00 Resp 18 04/03/21 12:00 BP 89/52 04/03/21 12:00 Pulse Ox 92 L 04/03/21 12:00 Intake & Output 04/02/21 04/03/21 04/03/21 18:59 06:59 18:59 Intake Total 480 120 Balance 480 120 Weight 71.3 kg Intake: Oral 480 120 Other: Voiding Method Toilet # Voids 1 1 1 # Bowel Movements 1 0 - Exam GENERAL EXAM: Alert, very pleasant, 45-year-old white female, on room air, inability to the bathroom, wobbly gait, comfortable in no apparent distress. HEAD: Normocephalic/atraumatic. EYES: Normal reaction of pupils, equal size. Conjunctiva pink, sclera white. NOSE: Clear with pink turbinates. THROAT: No erythema or exudates. NECK: No masses, no JVD, no thyroid enlargement, no adenopathy. CHEST: No chest wall deformity. Symmetrical expansion. LUNGS: Equal air entry with decreased breast sounds at bilateral bases CVS: Regular rate and rhythm, normal S1 and S2, no gallops, no murmurs, no rubs ABDOMEN: Soft, nontender. No hepatosplenomegaly, normal bowel sounds, no guarding or rigidity. EXTREMITIES: No clubbing, no edema, no cyanosis, 2+ pulses and upper and lower extremities. MUSCULOSKELETAL: Muscle strength and tone normal. SPINE: No scoliosis or deformity SKIN: No rashes CENTRAL NERVOUS SYSTEM: Alert and oriented -3. No focal deficits, tone is normal in all 4 extremities. PSYCHIATRIC: Alert and oriented -3. Appropriate affect. Intact judgment and insight. - Labs CBC & Chem 7: 04/03/21 07:47 04/03/21 07:47 Labs: Abnormal Lab Results - Last 24 Hours (Table) 04/03/21 04/03/21 Range/Units 07:47 07:47 D-Dimer 0.79 H (<0.60) mg/L FEU Creatinine 0.40 L (0.52-1.04) mg/dL AST 46 H (14-36) U/L ALT 117 H (4-34) U/L Alkaline Phosphatase 223 H (38-126) U/L C-Reactive Protein 1.0 H (<1.0) mg/dL Total Protein 5.8 L (6.3-8.2) g/dL Albumin 3.1 L (3.5-5.0) g/dL Assessment and Plan Plan: Assessment: #1. [id number] hypoxic rest or a failure secondary to COVID-19 pneumonia, in addition to a suspected bacterial pneumonia, rule out aspiration related versus community acquired #2. Abdominal pain possibly related to an ovarian cyst #3. History of myotonic muscular dystrophy #4. History of anxiety and depression #5. Lifelong nonsmoker #6. Elevated LFTs, possibly related to viral pneumonia versus Legionella pneumonia #7. History of anxiety and depression #8. Slightly elevated d-dimer with no CT evidence of pulmonary embolism Plan: Continue Decadron We'll add Zosyn for empiric antibiotic coverage Send a Legionella urine antigen Clinically she appears to be stable, breathing comfortably, she is ambulating in the room, she is on minimal supplemental oxygen or not at all when she is going to the bathroom No fever or chills Continue prophylactic Lovenox and COVID-19 vitamins Continue to follow her clinical course I performed a history & physical examination of the patient and discussed their management with my nurse practitioner, Celi Rendon. I reviewed the nurse practitioner's note and agree with the documented findings and plan of care. Lung sounds are positive for diffuse crackles throughout the lung villagran. The findings and the impression was discussed with the patient. I attest to the documentation by the nurse practitioner. Time with Patient: Less than 30
--- NOTE | 2021-04-03 15:59 | P.PN ---
Subjective Progress Note Date: 04/03/21 No significant events overnight, patient reports improvement in her breathing overall. She has been fluctuating between room air and 2 L of oxygen with saturation in the low 90s. She denies any chest pain, no cough, no headache, no fevers or chills. She had another chest x-ray today which showed bibasilar left greater than right opacities concerning for multifocal pneumonia. Her d-dimer slightly elevated today 0.79, but CTA of the chest negative for pulmonary emboli. Vital signs have been normal, she has been afebrile, WBC count is 8, LFTs remain elevated, remaining blood work is unremarkable Objective - Vital Signs Vital signs: Vital Signs Temp 97.8 F 04/03/21 08:00 Pulse 59 L 04/03/21 12:00 Resp 18 04/03/21 12:00 BP 89/52 04/03/21 12:00 Pulse Ox 92 L 04/03/21 12:00 Intake & Output 04/02/21 04/03/21 04/03/21 18:59 06:59 18:59 Intake Total 480 360 Balance 480 360 Weight 71.3 kg Intake: Oral 480 360 Other: Voiding Method Toilet # Voids 1 1 1 # Bowel Movements 1 0 - Exam Vital signs reviewed and stable. General: Nontoxic, no distress and appears stated age. Derm: Skin warm and dry, normal coloration for ethnicity. Head: Atraumatic, normocephalic and symmetric. Eyes: EOMs intact, no lid lag, and anicteric sclera Mouth: no lip lesions, mucus membranes moist Cardiovascular: regular rate and rhythm with normal S1S2, no murmur, positive posterior tibial pulses bilaterally, and cap refill < 2 seconds. Lungs: Respirations even, regular, and unlabored on room air. Lungs diminished at bases with no rhonchi, no rales, no wheezing, and no accessory muscle usage. Abdominal: soft, nontender to palpation, no guarding, no appreciable organomegaly Ext: ROM intact. No gross muscle atrophy, no edema, no contractures Neuro: Speech clear, face symmetrical and CN II-XII grossly intact with no noted focal neuro deficits - Labs CBC & Chem 7: 04/03/21 07:47 04/03/21 07:47 Labs: Abnormal Lab Results - Last 24 Hours (Table) 04/03/21 04/03/21 Range/Units 07:47 07:47 D-Dimer 0.79 H (<0.60) mg/L FEU Creatinine 0.40 L (0.52-1.04) mg/dL AST 46 H (14-36) U/L ALT 117 H (4-34) U/L Alkaline Phosphatase 223 H (38-126) U/L C-Reactive Protein 1.0 H (<1.0) mg/dL Total Protein 5.8 L (6.3-8.2) g/dL Albumin 3.1 L (3.5-5.0) g/dL Assessment and Plan Plan: Covid 19 Pneumonia in vaccinated individual Improving Oxygen requirement currently fluctuating between room air and 2 L. She was on 3 L of oxygen is today -Remdesevir Day 4 of 5 -Steroids with Decadron 6 mg daily. Day 4 of 10 -Continue daily Zinc, vitamin C, and vitamin D. -DVT prophylaxis with Lovenox -CRP has been improving daily -Contact plus droplet precautions to be maintained -Muscular dystrophy with reported history of impaired diaphragmatic muscle resulting in dependence on nightly BiPAP and supplemental oxygen -Patient was started on IV Zosyn today by pulmonology based on chest x-ray findings. However she has been improving clinically for the last 2 days, her oxygen requirement is decreasing, there is no leukocytosis, no fever, CRP is improving as well. There is no strong indication for antibacterial therapy at this time. Acute hypoxic respiratory failure -Improving -Secondary to above -Currently on 2 L of oxygen -Maintain saturation at 90% Large left ovarian cyst Lower abdominal pain -Transvaginal ultrasound revealed a large left ovarian cyst with positive blood flow and no evidence of torsion. -CT abdomen and pelvis confirmed ovarian cysts and showed no free fluid in the pelvis. -BHCG negative for . -ENDOSCOPIC TECHNICIAN consulted, recommending patient follow-up outpatient once treated for Covid 19 -Symptomatic care and pain management. Elevated liver enzymes, improving Bilirubin 0.8, AST 122, ALP 166, alkaline phosphatase of 269. No previous history of reported elevation of liver enzymes and no previous labs available for comparison. Elevated liver enzymes possibly secondary to Covid 19 virus infection and less likely vs adverse effects of medication lexapro and acyclovir. Continued close monitoring with repeat a.m. labs. Asymptomatic bradycardia -Troponin negative per transfer document from [facility] -EKG showing sinus bradycardia at 47 bpm with a first-degree AV block with OK interval of 264 ms and T-wave inversion in inferior, septal and anterolateral leads of II, III, aVF, and V1 through V6. No previous EKGs available for comparison. -Resolving -Further intervention, cardiology signing off Depression Continue daily medication regimen with Lexapro Anticipated discharge home tomorrow Time with Patient: Less than 30
[2021-04-03] MEDS: guanFACINE 1 MG TAB PO SCH (20:53)
[2021-04-03] MEDS: ESCITALOPRAM 20 MG TAB PO SCH (20:53)
[2021-04-03] MEDS: CHOLECALCIFEROL 25 MCG (1000 IU) TABLET PO SCH (20:53)
[2021-04-03] MEDS: ACYCLOVIR 200 MG CAP PO SCH (20:53)
[2021-04-04 08:58] LABS: C Reactive Protein 0.5 mg/dL (<1.0)
[2021-04-04] MEDS: ZINC SULFATE 220 MG CAP PO SCH (09:14)
[2021-04-04] MEDS: ENOXAPARIN 40 MG/0.4 ML SYRINGE SQ SCH (09:14)
[2021-04-04] MEDS: ASCORBIC ACID 500 MG TAB PO SCH (09:14)
[2021-04-04] MEDS: DEXAMETHASONE SOD PHOSPHATE 10 MG/ML 1 ML VIAL IV SCH (09:14)
--- NOTE | 2021-04-04 09:41 | P.PN ---
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 The patient was apparently seen recently at [facility] diagnosed with a large ovarian cyst. Her urine test was negative. She also did test positive for coronavirus. Her CAT scan did reveal some bilateral infiltrates, potentially consistent with coronavirus associated pneumonia. The patient really wasn't having much in the way of pulmonary complaints although, the patient was found to be hypoxemic on room air. She was seen by [employer]IST[employer] physician. Currently, the patient is a very poor historian. Very lethargic and sleepy and would not talk to me. She doesn't remember how long she's not been feeling well. She's currently on 3 L nasal cannula and getting saline at 1 30 mL an hour. Her primary care provider is Dr. Billy. She appears not to have any respiratory distress. She had a CT angiogram that was negative for pulmonary embolism. It does show evidence of bilateral infiltrates. White count 5.08, hemoglobin 13.5, hematocrit 44.7, plat elet count 184,000. D-dimer is 0.38. Sodium 140, potassium 4.3, chlorides 109, CO2 27, anion gap 4, BUN and creatinine were 4 and 0.41. AST was 122, ALT 166, LDH 518, C-reactive protein 2.9, and urine was negative. Her first coronavirus testing was positive on March 29, and subsequently on March 30 was negative. The patient is seen today to 04/02/2021 in follow-up on the selective care unit. She is currently resting comfortably in bed. She still somewhat drowsy. She does awake to verbal stimuli. She is maintaining O2 saturations in the 90s on 3 L/m per nasal cannula. She's been afebrile. Hemodynamically stable. She is continued on Decadron, Lovenox, vitamin supplements. On 04/03/2021 patient seen in follow-up on selective care unit, she is currently on room air, she has been ambulating to the bathroom, breathing fairly comfortably, no complaints of worsening dyspnea, no cough or chest pain. When in bed she is on 2 L of oxygen on pulse ox is 92-94%, she's been afebrile, no altered mentation, no hemoptysis. Her chest x-ray today shows low lung volumes, bibasilar left greater than right opacities concerning for multifocal pneumonia, small left pleural effusion, no cardiomegaly, her CTA chest was negative for pulmonary embolism, it did show bilateral air bronchograms, areas of consolidation, and scattered perihilar groundglass density consistent with possible underlying pneumonia. Patient continues on Decadron 6 mg daily, she is on prophylactic Lovenox, she is on COVID-19 vitamins. Patient has history of muscular dystrophy, and yesterday she was quite lethargic on physical examination, there is a possibility of underlying history of pneumonia, possibly related to aspiration. We'll add Zosyn for empiric antibiotic coverage, today's labs have been reviewed, white blood cell count is 8.0, hemoglobin is 14.6, d- dimer 0.79, electrolytes and renal profile were unremarkable. Her LFTs were elevated. 04/04/2021, I'm seeing the patient for a follow-up. She is awake and alert and she is in good spirits. She is only on 2 L of oxygen by nasal cannula. She remains on Decadron 6 mg on a daily basis and Lovenox therapeutic doses. I reviewed the chest x-ray. There is diffuse bilateral pulmonary infiltrates. 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 Also on today's evaluation, the patient says that she sees a respiratory therapist assistant and [facility] in [facility] and the patient has a home ventilator. She is not sure of the exact setting. Here in the hospital, she was given a APAP machine at a pressure minimal of 12 and a maximum of 16. Currently she is on 2 L about 2 by nasal cannula. Awake and alert. No signs of any CO2 narcosis. She has generalized motor weakness related to her muscle dystrophy.Her d-dimer level was at 1.5. The patient also had a pro calcitonin level of 0.06. Rest of the. Showed some mild transaminitis which is essentially improving. Objective - Vital Signs Vital signs: Vital Signs Temp 97.6 F 04/04/21 03:59 Pulse 63 04/04/21 03:59 Resp 17 04/04/21 03:59 BP 112/68 04/04/21 03:59 Pulse Ox 93 L 04/04/21 03:59 Intake & Output 04/03/21 04/04/21 04/04/21 18:59 06:59 18:59 Intake Total 600 480 Balance 600 480 Weight 71 kg Intake: Oral 600 480 Other: Voiding Method Toilet # Voids 1 3 # Bowel Movements 0 - Exam GENERAL EXAM: Alert, very pleasant, 45-year-old white female, on room air, inability to the bathroom, wobbly gait, comfortable in no apparent distress. HEAD: Normocephalic/atraumatic. EYES: Normal reaction of pupils, equal size. Conjunctiva pink, sclera white. NOSE: Clear with pink turbinates. THROAT: No erythema or exudates. NECK: No masses, no JVD, no thyroid enlargement, no adenopathy. CHEST: No chest wall deformity. Symmetrical expansion. LUNGS: Equal air entry with decreased breast sounds at bilateral bases CVS: Regular rate and rhythm, normal S1 and S2, no gallops, no murmurs, no rubs ABDOMEN: Soft, nontender. No hepatosplenomegaly, normal bowel sounds, no guarding or rigidity. EXTREMITIES: No clubbing, no edema, no cyanosis, 2+ pulses and upper and lower extremities. MUSCULOSKELETAL: Muscle strength and tone normal. SPINE: No scoliosis or deformity SKIN: No rashes CENTRAL NERVOUS SYSTEM: Alert and oriented -3. No focal deficits, tone is normal in all 4 extremities. PSYCHIATRIC: Alert and oriented -3. Appropriate affect. Intact judgment and insight. - Labs CBC & Chem 7: 04/03/21 07:47 04/03/21 07:47 Labs: Abnormal Lab Results - Last 24 Hours (Table) 04/04/21 Range/Units 07:58 D-Dimer 1.52 H (<0.60) mg/L FEU Assessment and Plan Plan: 1. [id number] hypoxic rest or a failure secondary to COVID-19 pneumonia, in addition to a suspected bacterial pneumonia, rule out aspiration related versus community acquired. In addition, the patient has chronic elevation of hemidiaphragm, consider possibility of an underlying right hemidiaphragmatic paralysis. The valve is thickened contributing to her acute hypoxic respiratory failure. Pro-calcitonin level is not elevated. Patient is on Decadron. The patient is on Zosyn. 2. Abdominal pain possibly related to an ovarian cyst 3. History of myotonic muscular dystrophy 4. History of anxiety and depression 5. Lifelong nonsmoker 6. Elevated LFTs, possibly related to viral pneumonia versus Legionella pneumonia 7. History of anxiety and depression 8. elevated d-dimer with no CT evidence of pulmonary embolism Plan: Continue Decadron I would suggest to discontinue the Zosyn Check the patient's pulse ox on room air Allow the patient to use a home ventilator Continue Decadron 10 day course Clinically she is stable. Consider discharging her home Continue to follow her clinical course
--- NOTE | 2021-04-04 17:03 | P.PN ---
Subjective Progress Note Date: 04/04/21 Patient is a 45-year-old female with a known history of muscular dystrophy, chronic respiratory failure with vent at night, and depression who has been admitted secondary to abdominal pain from large left ovarian cyst and was incidentally discovered to have Covid. Patient seen and examined at bedside. She denies any unusual shortness of breath, nausea, vomiting. She still feeling slightly weak. She states she does some chores at home but is mostly in her bed. Denies any nausea or vomiting. We discussed discharge today however she just was not feeling quite right and wants to stay 1 more night to make sure everything is going to be okay. She wears her home vent at night, but was not using any oxygen at home. General: non toxic, no distress, appears at stated age Derm: warm, dry Head: atraumatic, normocephalic, symmetric Eyes: EOMI, no lid lag, anicteric sclera Mouth: no lip lesion, mucus membranes moist Cardiovascular: S1S2 reg, no murmur, positive posterior tibial pulse bilateral, Lungs: Coarse breath sounds bilateral , no accessory muscle use Abdominal: soft, nontender to palpation, no guarding, no appreciable organomegaly Ext: no edema, no contractures Neuro: CN II-XI grossly intact, muscle wasting and face and bilateral hands as well as bilateral legs Psych: Alert, oriented, appropriate affect Covid 19 Pneumonia in vaccinated individual Acute hypoxic respiratory failure - home O2 evaluation -Remdesevir Day 5 -Steroids with Decadron 6 mg daily. Day 5 of 10 -Continue daily Zinc, vitamin C, and vitamin D. -DVT prophylaxis with Lovenox -Muscular dystrophy with reported history of impaired diaphragmatic muscle resulting in dependence on nightly home vent -Pulm recs appreciated optimized for discharge -Consider ASA/AC on discharge with decreased mobility and COVID Large left ovarian cyst Lower abdominal pain -Transvaginal ultrasound revealed a large left ovarian cyst with positive blood flow and no evidence of torsion. -CT abdomen and pelvis confirmed ovarian cysts and showed no free fluid in the pelvis. -BHCG negative for . -ACCOUNTS RECEIVABLE COORDINATOR Recs appreciated, OVA-1 pending, resrictions added to discharge tab by myself, follow-up in office in 2 weeks. -Symptomatic care and pain management. Transaminitis improving - likely secondary to covid - outpatient follow up Asymptomatic bradycardia -Troponin negative per transfer document from [facility] -EKG showing sinus bradycardia at 47 bpm with a first-degree AV block with [place] interval of 264 ms and T-wave inversion in inferior, septal and anterolateral leads of II, III, aVF, and V1 through V6. No previous EKGs available for comparison. -Resolving - cardiology signing off Depression - continue meds Anticipated home in AM Objective - Vital Signs Vital signs: Vital Signs Temp 97.9 F 04/04/21 12:00 Pulse 62 04/04/21 15:52 Resp 16 04/04/21 14:00 BP 103/63 04/04/21 12:00 Pulse Ox 92 L 04/04/21 12:05 Intake & Output 04/03/21 04/04/21 04/04/21 18:59 06:59 18:59 Intake Total 600 1760 Balance 600 1760 Weight 71 kg Intake: Oral 600 1760 Other: Voiding Method Toilet Toilet # Voids 1 3 # Bowel Movements 0 - Labs CBC & Chem 7: 04/03/21 07:47 04/03/21 07:47 Labs: Abnormal Lab Results - Last 24 Hours (Table) 04/04/21 04/04/21 Range/Units 07:58 07:58 D-Dimer 1.52 H (<0.60) mg/L FEU Lactate Dehydrogenase 665 H (313-618) U/L
[2021-04-04] MEDS: ACYCLOVIR 200 MG CAP PO SCH (20:22)
[2021-04-04] MEDS: ESCITALOPRAM 20 MG TAB PO SCH (20:22)
[2021-04-04] MEDS: CHOLECALCIFEROL 25 MCG (1000 IU) TABLET PO SCH (20:22)
[2021-04-04] MEDS: guanFACINE 1 MG TAB PO SCH (20:22)
[2021-04-05 06:17] VITALS: RESP 17
[2021-04-05] MEDS ORDERED: dexAMETHasone 2 MG TAB PO SCH (09:00)
[2021-04-05] MEDS: ZINC SULFATE 220 MG CAP PO SCH (09:22)
[2021-04-05] MEDS: ASCORBIC ACID 500 MG TAB PO SCH (09:23)
[2021-04-05] MEDS: ENOXAPARIN 40 MG/0.4 ML SYRINGE SQ SCH (09:23)
--- NOTE | 2021-04-05 09:50 | P.DS ---
Providers Date of admission: 03/31/21 15:20 Expected date of discharge: 04/05/21 Attending physician: Ginger Devi MD Consults: 03/29/21 23:15 Consult Physician Routine Consulting Provider: Verena Hearn Consult Reason/Comments: abdominal pain, ovarian cyst Do you want consulting provider notified?: Yes 03/31/21 15:17 Consult Physician Urgent Consulting Provider: Marlon Dorsey Consult Reason/Comments: Covid 3L O2 also has muscular dystrophy with impaired diaphragm function Do you want consulting provider notified?: Yes 04/01/21 21:47 Consult Physician Routine Consulting Provider: Brown Steele Consult Reason/Comments: sinus pauses >2.6 sec Do you want consulting provider notified?: Yes Primary care physician: Janis Billy Hospital Course: Patient is 45-year-old white female with known history of muscular dystrophy, chronic respiratory failure with vent at night, and depression who has been admitted secondary to abdominal pain from large left ovarian cyst and was incidentally discovered to have Covid. Patient is fully vaccinated and she had acute hypoxic respiratory failure, she received Remsisivir 5 days. She was also started on dexamethasone. She has history of large ovarian cyst, Transvaginal ultrasound revealed a large left ovarian cyst with positive blood flow and no evidence of torsion. -CT abdomen and pelvis confirmed ovarian cysts and showed no free fluid in the pelvis. -BHCG negative for . -CLOTH WINDER Recs appreciated, OVA-1 pending She also had transaminitis which improved. She also had asymptomatic bradycardia, was evaluated by cardiology, had first- grade AV block. She had a 2-D echo which was consistent with EF 55-60% She feels much better, she is not requiring oxygen She had elevated d-dimer but CT chest was negative for pulmonary embolism. CT chest was consistent with pneumonia likely associated with covert 19 infection. Patient feels much better and will be discharged home on dexamethasone Patient Condition at Discharge: Fair Plan - Discharge Summary New Discharge Prescriptions: New dexAMETHasone ORAL [Hexadrol] 6 mg PO DAILY 5 Days #5 tab Continue guanFACINE HCL [guanFACINE HCL ER] 1 mg PO HS Escitalopram [Lexapro] 20 mg PO HS Cholecalciferol (Vitamin D3) [Vitamin D3 (125 MCG = 5,000 IU)] 125 mcg PO HS Acyclovir 400 mg PO HS Discharge Medication List Acyclovir 400 mg PO HS 03/29/21 [History] Cholecalciferol (Vitamin D3) [Vitamin D3 (125 MCG = 5,000 IU)] 125 mcg PO HS 03/29/21 [History] Escitalopram [Lexapro] 20 mg PO HS 03/29/21 [History] guanFACINE HCL [guanFACINE HCL ER] 1 mg PO HS 03/29/21 [History] dexAMETHasone ORAL [Hexadrol] 6 mg PO DAILY 5 Days #5 tab 04/05/21 [Rx] Follow up Appointment(s)/Referral(s): Janis Billy MD [Primary Care Provider] - 1-2 days Activity/Diet/Wound Care/Special Instructions: Activity: [As tolerated] Diet: [Regular] Wound Care: [] Special Instructions: No intercourse. No heavy lifting >10 pounds, no further physical therapy
--- NOTE | 2021-04-05 11:35 | P.PN ---
Subjective Progress Note Date: 04/05/21 45-year-old female with a history of myotonic muscular dystrophy, presents to the emergency department for abdominal pain. The patient was apparently seen recently at [facility] diagnosed with a large ovarian cyst. Her urine test was negative. She also did test positive for coronavirus. Her CAT scan did reveal some bilateral infiltrates, potentially consistent with coronavirus associated pneumonia. The patient really wasn't having much in the way of pulmonary complaints although, the patient was found to be hypoxemic on room air. She was seen by COMMUNICATIONS BILLING ANALYST physician. Currently, the patient is a very poor historian. Very lethargic and sleepy and would not talk to me. She doesn't remember how long she's not been feeling well. She's currently on 3 L nasal cannula and getting saline at 1 30 mL an hour. Her primary care provider is Dr. Billy. She appears not to have any respiratory distress. She had a CT angiogram that was negative for pulmonary embolism. It does show evidence of bilateral infiltrates. White count 5.08, hemoglobin 13.5, hematocrit 44.7, plat elet count 184,000. D-dimer is 0.38. Sodium 140, potassium 4.3, chlorides 109, CO2 27, anion gap 4, BUN and creatinine were 4 and 0.41. AST was 122, ALT 166, LDH 518, C-reactive protein 2.9, and urine was negative. Her first coronavirus testing was positive on March 29, and subsequently on March 30 was negative. The patient is seen today to 04/02/2021 in follow-up on the selective care unit. She is currently resting comfortably in bed. She still somewhat drowsy. She does awake to verbal stimuli. She is maintaining O2 saturations in the 90s on 3 L/m per nasal cannula. She's been afebrile. Hemodynamically stable. She is continued on Decadron, Lovenox, vitamin supplements. On 04/03/2021 patient seen in follow-up on selective care unit, she is currently on room air, she has been ambulating to the bathroom, breathing fairly comfortably, no complaints of worsening dyspnea, no cough or chest pain. When in bed she is on 2 L of oxygen on pulse ox is 92-94%, she's been afebrile, no altered mentation, no hemoptysis. Her chest x-ray today shows low lung volumes, bibasilar left greater than right opacities concerning for multifocal pneumonia, small left pleural effusion, no cardiomegaly, her CTA chest was negative for pulmonary embolism, it did show bilateral air bronchograms, areas of consolidation, and scattered perihilar groundglass density consistent with possible underlying pneumonia. Patient continues on Decadron 6 mg daily, she is on prophylactic Lovenox, she is on COVID-19 vitamins. Patient has history of muscular dystrophy, and yesterday she was quite lethargic on physical examination, there is a possibility of underlying history of pneumonia, possibly related to aspiration. We'll add Zosyn for empiric antibiotic coverage, today's labs have been reviewed, white blood cell count is 8.0, hemoglobin is 14.6, d- dimer 0.79, electrolytes and renal profile were unremarkable. Her LFTs were elevated. 04/04/2021, I'm seeing the patient for a follow-up. She is awake and alert and she is in good spirits. She is only on 2 L of oxygen by nasal cannula. She remains on Decadron 6 mg on a daily basis and Lovenox therapeutic doses. I reviewed the chest x-ray. There is diffuse bilateral pulmonary infiltrates. 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 Also on today's evaluation, the patient says that she sees a sheet metal assembler and [facility] in [facility] and the patient has a home ventilator. She is not sure of the exact setting. Here in the hospital, she was given a APAP machine at a pressure minimal of 12 and a maximum of 16. Currently she is on 2 L about 2 by nasal cannula. Awake and alert. No signs of any CO2 narcosis. She has generalized motor weakness related to her muscle dystrophy.Her d-dimer level was at 1.5. The patient also had a pro calcitonin level of 0.06. Rest of the. Showed some mild transaminitis which is essentially improving. 04/05/2021, the patient is doing well. No specific complaints. She is currently on oxygen at 2 L per minute nasal cannula. She is also on Decadron and Lovenox. The LDH from today is slightly higher at 665. Nevertheless, clinically the patient is doing well. Pro calcitonin level is low at 0.04. As mentioned earlier, the patient has history of myotonic dystrophy. She utilizes a home ventilator. She is currently on no antibiotics. The patient is being considered for discharge home on Decadron to be completed on outpatient basis regarding her COVID-19 related infection/pneumonia. Objective - Vital Signs Vital signs: Vital Signs Temp 97.9 F 04/05/21 04:00 Pulse 55 L 04/05/21 04:00 Resp 17 04/05/21 04:00 BP 114/61 04/05/21 04:00 Pulse Ox 93 L 04/05/21 04:00 Intake & Output 04/04/21 04/05/21 04/05/21 18:59 06:59 18:59 Intake Total 2440 240 Output Total 1500 Balance 2440 -1500 240 Weight 82.5 kg Intake: Oral 2440 240 Output: Urine 1500 Other: Voiding Method Toilet Toilet # Voids 1 - Exam GENERAL EXAM: Alert, very pleasant, 45-year-old white female, on room air, inability to the bathroom, wobbly gait, comfortable in no apparent distress. HEAD: Normocephalic/atraumatic. EYES: Normal reaction of pupils, equal size. Conjunctiva pink, sclera white. NOSE: Clear with pink turbinates. THROAT: No erythema or exudates. NECK: No masses, no JVD, no thyroid enlargement, no adenopathy. CHEST: No chest wall deformity. Symmetrical expansion. LUNGS: Equal air entry with decreased breast sounds at bilateral bases CVS: Regular rate and rhythm, normal S1 and S2, no gallops, no murmurs, no rubs ABDOMEN: Soft, nontender. No hepatosplenomegaly, normal bowel sounds, no guarding or rigidity. EXTREMITIES: No clubbing, no edema, no cyanosis, 2+ pulses and upper and lower extremities. MUSCULOSKELETAL: Muscle strength and tone normal. SPINE: No scoliosis or deformity SKIN: No rashes CENTRAL NERVOUS SYSTEM: Alert and oriented -3. No focal deficits, tone is normal in all 4 extremities. PSYCHIATRIC: Alert and oriented -3. Appropriate affect. Intact judgment and insight. - Labs CBC & Chem 7: 04/03/21 07:47 04/03/21 07:47 Assessment and Plan Plan: 1. Grin-ce-pflthaqu hypoxic respiratory failure secondary to COVID-19 pneumonia, in addition to a suspected bacterial pneumonia, rule out aspiration related versus community acquired. In addition, the patient has chronic elevation of hemidiaphragm, consider possibility of an underlying right hemidiaphragmatic paralysis. The valve is thickened contributing to her acute hypoxic respiratory failure. Pro-calcitonin level is not elevated. Patient is on Decadron. His taken off antibiotics patient is doing well. She was further weaning down to oxygen on room air. 2. Abdominal pain possibly related to an ovarian cyst 3. History of myotonic muscular dystrophy 4. History of anxiety and depression 5. Lifelong nonsmoker 6. Elevated LFTs, possibly related to viral pneumonia versus Legionella pneumonia 7. History of anxiety and depression 8. elevated d-dimer with no CT evidence of pulmonary embolism Plan: Continue Decadron, completed total of 10 day course I no need for antibiotic coverage for now The patient is currently on room air oxygen Allow the patient to use a home ventilator, she sees a sheet metal assembler off [facility] and she will follow up with him Continue Decadron 10 day course Clinically she is stable. Consider discharging her home Her condition is stable for now.
[2021-04-05 12:02] VITALS: BP 112/69; PULSE 72; TEMP 97.8
== END 2021-04-05 14:01 | disposition home or self-care (01) | DRG 177 ==
LOC: EC 20:12 → 6NMEDSUR 23:01 → OBSVTOIN 03-31 15:20 → 3SCARD 04-01 22:37
PROVIDERS: ADMIT Internal Medicine; ATTEND Internal Medicine
PROC: XW043E5 Introduction of Remdesivir Anti-infective into Central Vein, Percutaneous Approach, New Technology Group 5 (ICD-10-PCS; principal; 2021-03-31)
PROC: 3E0333Z Introduction of Anti-inflammatory into Peripheral Vein, Percutaneous Approach (ICD-10-PCS; 2021-03-31)
PROC: 5A09357 Assistance with Respiratory Ventilation, Less than 24 Consecutive Hours, Continuous Positive Airway Pressure (ICD-10-PCS; 2021-04-01)
DX: U07.1 COVID-19 (principal); J12.82 Pneumonia due to coronavirus disease 2019; J96.21 Acute and chronic respiratory failure with hypoxia; F32.9 Major depressive disorder, single episode, unspecified; F41.9 Anxiety disorder, unspecified; G71.00 Muscular dystrophy, unspecified; I44.0 Atrioventricular block, first degree; R00.1 Bradycardia, unspecified; N83.202 Unspecified ovarian cyst, left side; Z80.3 Family history of malignant neoplasm of breast; Z87.01 Personal history of pneumonia (recurrent); Z98.51 Tubal ligation status
CPT/HCPCS: 36415; 71045; 71275; 80053; 81003; 82728; 83615; 83735; 84145; 84439; 84443; 84702; 85025; 85027; 85379; 85652; 86140; 86850; 86900; 86901; 87635; 93005; 93306; 94660; 94760; 96360; 96361; 99285

== ENCOUNTER 2021-04-13 09:14 | Emergency (ER) | payer MEDICARE, OTHER ==
[2021-04-13 09:38] VITALS: RESP 18; TEMP 98.1
[2021-04-13] MEDS ORDERED: MORPHINE SULFATE 4 MG/ML SYRINGE IM STA (10:46)
--- NOTE | 2021-04-13 10:47 | ED ---
Upper Extremity HPI - General Chief Complaint: Extremity Injury, Upper Stated Complaint: pain/itchy/burning on both arms Time Seen by Provider: 04/13/21 10:39 Source: patient, RN notes reviewed Mode of arrival: ambulatory Limitations: no limitations - History of Present Illness Initial Comments: This a 45-year-old female presents emergency Department chief complaint of bilateral upper arm pain. Patient states she was recent hospital had multiple IV starts, but draws. Patient states that she started having right arm swelling along with left arm swelling. She states right is worse in the left. No fevers or chills she states his skin was red now. She is to is very painful to the touch. Patient states she's not been any medications other than Tylenol Motrin for this. Patient denies fevers chills neck pain, night sweats. - Related Data Home Medications Medication Instructions Recorded Confirmed Acyclovir 400 mg PO HS 03/29/21 03/29/21 Cholecalciferol (Vitamin D3) 125 mcg PO HS 03/29/21 03/29/21 [Vitamin D3 (125 MCG = 5,000 IU)] Escitalopram [Lexapro] 20 mg PO HS 03/29/21 03/29/21 guanFACINE HCL [guanFACINE HCL ER] 1 mg PO HS 03/29/21 03/29/21 Previous Rx's Medication Instructions Recorded dexAMETHasone ORAL [Hexadrol] 6 mg PO DAILY 5 Days #5 tab 04/05/21 Ibuprofen [Motrin] 600 mg PO Q8HR PRN #30 tab 04/13/21 Allergies Allergy/AdvReac Type Severity Reaction Status Date / Time hydromorphone [From Dilaudid] AdvReac Confusion Verified 03/29/21 21:28 Review of Systems ROS Statement: Those systems with pertinent positive or pertinent negative responses have been documented in the HPI. ROS Other: All systems not noted in ROS Statement are negative. Past Medical History Additional Past Medical History / Comment(s): , HERPES TYPE 2 History of Any Multi-Drug Resistant Organisms: None Reported Past Surgical History: Appendectomy, Cholecystectomy, Tubal Ligation Past Psychological History: Anxiety, Depression Smoking Status: Never smoker Past Alcohol Use History: None Reported Past Drug Use History: None Reported - Past Family History family Family Medical History: No Reported History General Exam Limitations: no limitations General appearance: alert, in no apparent distress Head exam: Present: atraumatic, normocephalic, normal inspection Eye exam: Present: normal appearance, PERRL, EOMI. Absent: scleral icterus, conjunctival injection, periorbital swelling ENT exam: Present: normal exam, normal oropharynx, mucous membranes moist Neck exam: Present: normal inspection, full ROM. Absent: tenderness, meningismus, lymphadenopathy Respiratory exam: Present: normal lung sounds bilaterally. Absent: respiratory distress, wheezes, rales, rhonchi, stridor Cardiovascular Exam: Present: regular rate, normal rhythm, normal heart sounds. Absent: systolic murmur, diastolic murmur, rubs, gallop, clicks Extremities exam: Present: other (Right forearm there is an erythematous area that is warm to touch, tender with palpation, radial pulses equal bilaterally, cap refill less than 2 seconds full range of motion there is slight area of erythema left arm.) Neurological exam: Present: alert, oriented X3, CN II-XII intact Course Vital Signs 04/13/21 09:35 Temperature 98.1 F Pulse Rate 100 Respiratory 18 Rate Blood Pressure 106/74 O2 Sat by Pulse 98 Oximetry Medical Decision Making - Medical Decision Making US reveals evidence of superficial from phlebitis there is no DVT. Patient be discharged on anti-inflammatories, warm compresses return parameters were discussed. Disposition Clinical Impression: Superficial thrombophlebitis Disposition: HOME SELF-CARE Condition: Stable Instructions (If sedation given, give patient instructions): Superficial Thrombophlebitis (ED) Additional Instructions: Please return to the Emergency Department if symptoms worsen or any other concerns. Prescriptions: Ibuprofen [Motrin] 600 mg PO Q8HR PRN #30 tab PRN Reason: Pain Is patient prescribed a controlled substance at d/c from ED?: No Referrals: Janis Billy MD [Primary Care Provider] - 1-2 days Time of Disposition: 11:46
--- NOTE | 2021-04-13 11:26 | US ---
EXAMINATION TYPE: US venous doppler duplex UE RT DATE OF EXAM: 04/13/2021 COMPARISON: NONE CLINICAL HISTORY: pain. Right arm pain SIDE PERFORMED: Right Patient sitting up during exam IJV not visualized due to patient position Right Arm: Visualized portions appear negative for DVT Thrombus seen within basilic vein IMPRESSION: 1. Visualized deep venous structures right upper extremity negative for deep venous thrombosis. 2. Note is made of superficial thrombus within the basilic vein.
[2021-04-13] MEDS ORDERED: ACET/COD 300 MG/30 MG STARTER PACK 6 TAB BTL PO STA (11:46)
[2021-04-13 12:04] VITALS: BP 110/77; PULSE 92
== END 2021-04-13 12:04 | disposition home or self-care (01) ==
LOC: EC 09:14
DX: I80.8 Phlebitis and thrombophlebitis of other sites (principal); Z88.8 Allergy status to other drugs, medicaments and biological substances
CPT/HCPCS: 93971; 96372; 99284; J2270

== ENCOUNTER → 2021-04-23 | Outpatient (CLI) | payer MEDICARE, OTHER ==
[2021-04-23 17:23] LABS: Basophils # (A) 0.08 X 10*3/uL (0.00-0.10); Eosinophils # (A) 0.39 X 10*3/uL (0.04-0.35); Eosinophils % (A) 5.1 %; HCT 51.2 % (37.2-46.3); HGB 15.4 g/dL (12.0-15.0); Lymphocytes # (A) 2.03 X 10*3/uL (0.90-5.00); Lymphocytes % (A) 26.5 %; MCH 29.4 pg (27.0-32.0); MCHC 30.1 g/dL (32.0-37.0); MCV 97.7 fL (80.0-97.0); Mean Platelet Volume 11.3 fL (9.5-12.2); Monocytes # (A) 0.48 X 10*3/uL (0.20-1.00); Monocytes % (A) 6.3 %; Neutrophils # (A) 4.64 X 10*3/uL (1.80-7.70); Neutrophils % (A) 60.7 %; Platelet Count 292 X 10*3/uL (140-440); RBC 5.24 X 10*6/uL (4.10-5.20); RDW 15.2 % (11.5-14.5); WBC 7.65 X 10*3/uL (4.50-10.00)
[2021-04-23 18:01] LABS: African American GFR (CKD) 129.7 (60.0-200.0); Anion Gap 14.9 mmol/L (4.00-12.00); Blood Urea Nitrogen 13.2 mg/dL (9.0-27.0); Carbon Dioxide 23.6 mmol/L (21.6-31.8); Non-African American GFR(CKD) 111.9 (60.0-200.0); Potassium 4.6 mmol/L (3.5-5.5)
== END | disposition home or self-care (01) ==
LOC: LABWHC1 09:50
PROVIDERS: ATTEND Obstetrics & Gynecology
DX: Z01.812 Encounter for preprocedural laboratory examination (principal); N83.209 Unspecified ovarian cyst, unspecified side
CPT/HCPCS: 36415; 80051; 82565; 84520; 85025; 87086

== ENCOUNTER → 2021-04-27 | Outpatient (CLI) | payer MEDICARE, OTHER ==
--- NOTE | 2021-04-27 14:44 | XR ---
EXAMINATION TYPE: XR chest 2V DATE OF EXAM: 04/27/2021 COMPARISON: 04/03/2021 TECHNIQUE: PA and lateral views submitted. HISTORY: Follow-up pneumonia FINDINGS: The heart size is normal. There are surgical clips in right upper quadrant with by basilar infiltrate . No sizable pleural effusion or pneumothorax. Reduced inspiration. No overt failure. IMPRESSION: 1. Improving bilateral lower lobe infiltrate and small effusion.
== END | disposition home or self-care (01) ==
LOC: RADXRMAIN 14:21
PROVIDERS: ATTEND Family Medicine
DX: R91.8 Other nonspecific abnormal finding of lung field (principal); Z86.16 Personal history of COVID-19
CPT/HCPCS: 71046

== ENCOUNTER 2021-05-02 06:08 | Inpatient (IN) | payer MEDICARE, OTHER ==
[2021-04-28 10:46] VITALS: BMI 32.1
[2021-05-02] MEDS ORDERED: MIDAZOLAM 2 MG/2 ML VIAL IV PRN (06:13)
[2021-05-02] MEDS ORDERED: DEXAMETHASONE SOD PHOSPHATE 4 MG/ML 1 ML VIAL IV ONE (06:13)
[2021-05-02] MEDS ORDERED: ONDANSETRON 4 MG/2 ML VIAL IVP ONE (06:13)
[2021-05-02] MEDS ORDERED: SCOPOLAMINE 1.5MG/72HR PATCH TRANSDERM ONE (06:13)
[2021-05-02] MEDS ORDERED: LACTATED RINGERS 1,000 ML IV SCH ×3 (06:13→13:30)
[2021-05-02] MEDS ORDERED: fentaNYL (PF) 50 MCG/ML 2 ML AMP IV PRN (07:00)
[2021-05-02] MEDS ORDERED: LIDOCAINE 1% (10MG/ML) FOR IV START SQ ONE (07:04)
[2021-05-02] MEDS ORDERED: GLYCOPYRROLATE 0.2 MG/ML 2 ML VIAL ONE (07:25)
[2021-05-02] MEDS ORDERED: PROPOFOL 10 MG/ML 20 ML VIAL IV ONE (07:25)
[2021-05-02] MEDS ORDERED: KETOROLAC 15 MG/ML 1 ML VIAL ONE (07:25)
[2021-05-02] MEDS ORDERED: ACETAMINOPHEN IV (For NPO) 1,000 MG/100 ML VIAL ONE (07:25)
[2021-05-02] MEDS ORDERED: fentaNYL (PF) 50 MCG/ML 2 ML AMP ONE (07:25)
[2021-05-02] MEDS ORDERED: MIDAZOLAM 2 MG/2 ML VIAL ONE (07:25)
[2021-05-02] MEDS ORDERED: ROCURONIUM 10 MG/ML (5 ML VIAL) IV ONE (07:25)
[2021-05-02] MEDS ORDERED: NEOSTIGMINE 1 MG/ML 10 ML VIAL ONE (07:25)
[2021-05-02] MEDS ORDERED: KETAMINE 10 MG/ML 20 ML VIAL ONE (07:25)
[2021-05-02] MEDS ORDERED: LIDOCAINE 1% INJ 10MG/ML (20 ML MDV) ONE (07:25)
[2021-05-02] MEDS ORDERED: BUPIVACAINE (PF) 0.25% 30 ML VIAL SQ ONE ×2 (08:18→08:20)
[2021-05-02] MEDS ORDERED: ONDANSETRON 4 MG/2 ML VIAL IVP PRN (08:36)
[2021-05-02] MEDS ORDERED: IBUPROFEN 600 MG TAB PO PRN (08:36)
[2021-05-02] MEDS ORDERED: METOCLOPRAMIDE 5 MG/ML 2 ML VIAL IVP PRN (08:36)
[2021-05-02] MEDS ORDERED: diphenhydrAMINE 50 MG/ML 1 ML VIAL IVP PRN (08:36)
[2021-05-02] MEDS ORDERED: KETOROLAC 15 MG/ML 1 ML VIAL IVP PRN (08:36)
[2021-05-02] MEDS ORDERED: SIMETHICONE 80 MG CHEWABLE PO PRN (08:36)
--- NOTE | 2021-05-02 08:36 | P.OP ---
Date of Procedure: 05/02/21 Preoperative Diagnosis: Complex left adnexal mass, muscular dystrophy Postoperative Diagnosis: Same, pathology pending. Normal-appearing right ovary Procedure(s) Performed: Exploratory laparotomy, pelvic washings, left salpingo-oophorectomy. Anesthesia: GETA Surgeon: Evelyn Peralta Roll Cutting Operator #1: Cole Meraz Estimated Blood Loss (ml): 20 IV fluids (ml): 400 Urine output (ml): 100 Pathology: other (Pelvic washings, left tube and ovary, unruptured) Condition: stable Disposition: PACU Operative Findings: Normal-appearing right ovary. No evidence of pelvic endometriosis or adhesions. Description of Procedure: Patient is brought to the operating suite where anesthetic is administered carefully per Dr. Albright. Larkin catheter is placed. Antibiotics are given. Patient is placed in the dorsal supine position. The abdomen is prepped and draped in usual sterile fashion. Urine test is negative. The appropriate timeout was performed to assure proper patient procedure identification. A repeat low transverse skin incision is made. This is carried down through the subcutaneous tissue which is approximate 3 cm deep. Fascia is isolated, scored, extended bilaterally with curved Silva scissors. Peritoneum is identified and incised, no bowel or bladder involvement. Fluid was placed into the abdominal cavity and pelvic washings are obtained and sent to pathology. Exploration of the abdomen reveals a tense smooth firm left adnexal cyst. This is gently brought up into the incision. It is clamped with a Spike clamp across the base to incorporate the tube. The left tube and ovary are removed and sent to pathology intact. 0 Vicryl sutures used in a Spike stitch to tie the pedicle, this is flashed and retied for excellent hemostasis. The opposite o vary is then inspected and noted to be normal. No evidence of pelvic adhesions or endometriosis. The peritoneum was closed by secondary intention. Fascia is closed in a running stitch of 0 Vicryl with over ligation in the midline. Subcutaneous tissue is irrigated, clean and dry. It is reapproximated with 3-0 Vicryl. 4-0 undyed Monocryl is used for final skin closure. Steri-Strips and Mastisol are applied to the wound. Larkin is noted to be draining clear urine. Vital signs are stable including a blood pressure of 119/73, pulse 73, 97% O2 saturation. Patient is brought to the recovery room in stable condition. Toradol is given prior to leaving the operative room. Ofirmev has also been given.
[2021-05-02] MEDS ORDERED: MORPHINE SULFATE 2 MG/ML SYRINGE IVP PRN (11:24)
[2021-05-02] MEDS: LACTATED RINGERS 1,000 ML IV SCH ×2 (12:47→16:33)
[2021-05-02] MEDS: KETOROLAC 30 MG/ML 1 ML VIAL IVP PRN ×2 (13:54→21:00)
[2021-05-02] MEDS: ACETAMINOPHEN IV (For NPO) 1,000 MG in EMPTY BAG 1 BAG IVPB SCH (19:59)
[2021-05-03] MEDS: LACTATED RINGERS 1,000 ML IV SCH (00:52)
[2021-05-03] MEDS: ACETAMINOPHEN IV (For NPO) 1,000 MG in EMPTY BAG 1 BAG IVPB SCH ×2 (00:52→06:04)
[2021-05-03] MEDS: KETOROLAC 30 MG/ML 1 ML VIAL IVP PRN ×2 (02:16→08:09)
--- NOTE | 2021-05-03 08:02 | P.DS ---
Providers Date of admission: 05/02/21 06:08 Expected date of discharge: 05/03/21 Attending physician: Evelyn Peralta Primary care physician: Stated None Hospital Course: This is a 45-year-old female who presented with a complex left adnexal mass. After consultation, the decision was made to excise the mass with pelvic washings. Preoperative testing suggested benign in nature. 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 Please see dictated history and physical for details. Yesterday under my care the patient underwent an exploratory laparotomy, left salpingo-oophorectomy, and pelvic washings. The lesion appeared benign to gross inspection, sent to pathology for microscopic assessment. Surgery was unremarkable, please see dictated operative note for details. Through the night the patient became hypotensive, corrected with fluid boluses. She was given Toradol and O firm if for pain relief. This morning the Larkin catheter is draining clear urine, it has been discontinued. The incision is clean and dry, intact, Steri-Strips applied. Abdomen is soft, no rebound or guarding. No CVA tenderness. Vital signs have become stable. Patient is judged to be in fair condition for discharge home, but doing well from the postoperative perspective. She will follow-up in the office with me in 2 weeks. I have reminded her no intercourse, tampons or douching. I am recommending she use Aleve at home as needed for pain relief. No heavy lifting, no driving for 2 weeks, no intercourse. Call with any fevers shakes or chills, foul smelling vaginal drainage or incisional drainage, with any pain not alleviated by [id number] products. Assessment: Doing well first postoperative day Patient Condition at Discharge: Fair Plan - Discharge Summary New Discharge Prescriptions: No Action guanFACINE HCL [guanFACINE HCL ER] 1 mg PO HS Escitalopram [Lexapro] 20 mg PO HS Nitrofurantoin Monohyd/M-Cryst [Macrobid] 100 mg PO BID Cholecalciferol (Vitamin D3) [Vitamin D3 (125 MCG = 5,000 IU)] 125 mcg PO DAILY Acyclovir 400 mg PO HS Discharge Medication List Acyclovir 400 mg PO HS 03/29/21 [History] Cholecalciferol (Vitamin D3) [Vitamin D3 (125 MCG = 5,000 IU)] 125 mcg PO DAILY 03/29/21 [History] Escitalopram [Lexapro] 20 mg PO HS 03/29/21 [History] guanFACINE HCL [guanFACINE HCL ER] 1 mg PO HS 03/29/21 [History] Nitrofurantoin Monohyd/M-Cryst [Macrobid] 100 mg PO BID 04/28/21 [History] Follow up Appointment(s)/Referral(s): Evelyn Peralta MD [STAFF PHYSICIAN] - 2 Weeks
[2021-05-03] MEDS ORDERED: ACETAMINOPHEN TAB 325 MG TAB PO PRN (08:37)
[2021-05-03 09:13] VITALS: BP 98/66; TEMP 98.6
[2021-05-03 10:12] VITALS: RESP 20
[2021-05-03 11:52] VITALS: PULSE 97
== END 2021-05-03 12:04 | disposition home or self-care (01) | DRG 743 ==
LOC: 2ORMAIN 06:08 → 6PED 08:57
PROVIDERS: ADMIT Obstetrics & Gynecology; ATTEND Obstetrics & Gynecology
PROC: 0UT10ZZ Resection of Left Ovary, Open Approach (ICD-10-PCS; 2021-05-02)
PROC: 3E1P78Z Irrigation of Female Reproductive using Irrigating Substance, Via Natural or Artificial Opening (ICD-10-PCS; 2021-05-02)
PROC: 0UT60ZZ Resection of Left Fallopian Tube, Open Approach (ICD-10-PCS; principal; 2021-05-02 07:30)
DX: N83.202 Unspecified ovarian cyst, left side (principal); G71.00 Muscular dystrophy, unspecified; A60.04 Herpesviral vulvovaginitis; J45.909 Unspecified asthma, uncomplicated; Z88.5 Allergy status to narcotic agent; Z87.440 Personal history of urinary (tract) infections; Z87.19 Personal history of other diseases of the digestive system; Z90.49 Acquired absence of other specified parts of digestive tract; Z20.822 Contact with and (suspected) exposure to COVID-19; Z98.51 Tubal ligation status
CPT/HCPCS: 81025; 84703; 86850; 86900; 86901; 87635; 88104; 88305; 94760

== ENCOUNTER 2021-05-04 12:06 | Inpatient (IN) | payer MEDICARE, OTHER ==
[2021-05-04] MEDS ORDERED: SODIUM CHLORIDE 0.9% 1,000 ML IV STA (12:56)
[2021-05-04] MEDS ORDERED: ACETAMINOPHEN TAB 500 MG TAB PO STA (13:05)
--- NOTE | 2021-05-04 13:10 | ED ---
General Adult HPI - General Chief complaint: Shortness of Breath Stated complaint: post surg low o2 Time Seen by Provider: 05/04/21 12:37 Source: patient Mode of arrival: wheelchair Limitations: no limitations - History of Present Illness Initial comments: Dictation was produced using [employer] dictation software. please excuse any grammatical, word or spelling errors. 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 She ever since the surgery she is had low oxygen. She was discharged to home. Patient's mother is son is a transfer station attendant and was able to bring oxygen tank home for the patient to use. Oxygen is ran out. It is not unusual for patient to be hypoxic like this from the dystrophy. Denies any fever or chest pain. Denies any lower extremity symptoms. No abdominal pain. No history of blood clots. Patient is a history of low blood pressure. Patient's mother is a nurse. She's been maintaining good oxygen to home with 2-3 L nasal cannula. The ROS documented in this emergency department record has been reviewed and confirmed by me. Those systems with pertinent positive or negative responses have been documented in the HPI. All other systems are other negative and/or noncontributory. PHYSICAL EXAM: General Impression: Alert and oriented x3, not in acute distress HEENT: Normocephalic atraumatic, extra-ocular movements intact, pupils equal and reactive to light bilaterally, mucous membranes moist. Cardiovascular: Heart regular rate and rhythm Chest: Able to complete full sentences, no retractions, no tachypnea, lungs clear to auscultation bilaterally Abdomen: abdomen soft, non-tender, non-distended, no organomegaly Musculoskeletal: Pulses present and equal in all extremities, no peripheral edema Motor: no focal deficits noted Neurological: CN II-XII grossly intact, no focal motor or sensory deficits noted Skin: Intact with no visualized rashes Psych: Normal affect and mood ED course: 45-year-old female past medical history of myotonic dystrophy affecting the lungs causing chronic respiratory issues presents to the emergency department for low oxygen shortness of breath. She is also 2 days postop from laparotomy pelvic surgery. Vital signs upon arrival shows heart rate of 107 with oxygen saturation 87% on room air. Patient's blood pressure 95/65. Patient's family reports that these are usual vitals for her except for the hypoxia. Laboratory evaluation obtained. Hemoglobin of 8.8. She has a hemoglobin from 11 days ago with the results of 15.4. I did look at the operative report saying that there is 20 mL of blood loss. [id number] bedside ultrasound was perfo rmed showing free fluid in the abdomen. There is concern for bleeding. Boyfriend at the bedside reports that patient has been having black stools. Digital rectal exam showed no gross blood or melanotic stool. EKG interpretation: Ventricular rate 90, normal sinus rhythm,. Interval 186, QRS 104, QTc 449. No IN prolongation, no QTC prolongation, no ST or T-wave changes noted. EKG compared to 03/29/2021 showing no changes. Overall, this EKG is unremarkable Metabolic panel is unremarkable. Coag panel is negative. Troponins 0.037. Brain natruretic peptide is 1910. Coronavirus is negative. CT angios the chest is limited but does not show any acute pulmonary embolism. There is stable findings otherwise. CT of the abdomen and pelvis was obtained in order to look for intra-abdominal bleeding. There does appear to be free fluid in the abdomen and pelvis. Case is discussed in detail with Dr. Peralta states that patient's hemoglobin drop is the result of hemodilution. He does not feel that the patient is to be admitted to her service but she will be happy to be on consult. Case was discussed with [facility] physician group was willing to accept care for the patient. Patient will have scheduled CBC is to determine if there is any further worsening anemia. Patient be admitted to [facility] physician group. [employer] Tester on consult. - Related Data Home Medications Medication Instructions Recorded Confirmed Acyclovir 400 mg PO HS 03/29/21 05/04/21 Cholecalciferol (Vitamin D3) 125 mcg PO DAILY 03/29/21 05/04/21 [Vitamin D3 (125 MCG = 5,000 IU)] Escitalopram [Lexapro] 20 mg PO HS 03/29/21 05/04/21 guanFACINE HCL [guanFACINE HCL ER] 1 mg PO HS 03/29/21 05/04/21 Meclizine [Antivert] 12.5 mg PO DAILY PRN 05/04/21 05/04/21 Pregabalin [Lyrica] 75 mg PO DAILY 05/04/21 05/04/21 Rosuvastatin Calcium [Crestor] 5 mg PO DAILY 05/04/21 05/04/21 Tolterodine ER [Detrol LA] 2 mg PO DAILY 05/04/21 05/04/21 Allergies Allergy/AdvReac Type Severity Reaction Status Date / Time hydromorphone [From Dilaudid] AdvReac Confusion Verified 05/04/21 13:53 Review of Systems ROS Statement: Those systems with pertinent positive or pertinent negative responses have been documented in the HPI. ROS Other: All systems not noted in ROS Statement are negative. Past Medical History Past Medical History: Memory Impairment, Sleep Apnea/CPAP/BIPAP Additional Past Medical History / Comment(s): Current UTI, on Macrobid per Dr Peralta, to be completed 05/01/21. 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 Uses AFO (Ankle/foot Orthotics and a cane). Herpes Type 2. "Intraventricular conduction delay, P waves are inverted on EKG." Low BP. Urinary Incontinence. Recent hospitalization X1 week(discharged 04/05/21)with abdominal pain/ovarian cyst and diagnosed with Asymptomatic Covid Pneumonia and had "superficial thrombophlebitis attributed to multiple IV attempts". History of Any Multi-Drug Resistant Organisms: None Reported Past Surgical History: Adenoidectomy, Cholecystectomy, Tonsillectomy, Tubal Ligation Additional Past Surgical History / Comment(s): repair of fractured jaw, left ovary removed. Past Anesthesia/Blood Transfusion Reactions: Previous Problems w/ Anesthesia Additional Past Anesthesia/Blood Transfusion Reaction / Comment(s): Hard to wake up. Mother states patient should not have Succinylcholine due to Myotonic Muscular Dystrophy. Past Psychological History: Anxiety, Depression Smoking Status: Never smoker Past Alcohol Use History: None Reported Past Drug Use History: None Reported - Past Family History Mother Family Medical History: Hypertension Additional Family Medical History / Comment(s): amputee from infection in leg Father Additional Family Medical History / Comment(s): myotinic muscular dystrophy - family Family Medical History: No Reported History General Exam Limitations: no limitations Course Vital Signs 05/04/21 12:24 Temperature 97.8 F Pulse Rate 107 H Respiratory 20 Rate Blood Pressure 95/65 O2 Sat by Pulse 87 L Oximetry Medical Decision Making - Lab Data Result diagrams: 05/04/21 13:59 05/04/21 13:59 Lab Results 05/04/21 05/04/21 05/04/21 Range/Units 13:01 13:59 13:59 WBC 8.6 (3.8-10.6) k/uL RBC 2.90 L (3.80-5.40) m/uL Hgb 8.8 L D (11.4-16.0) gm/dL Hct 27.7 L (34.0-46.0) % MCV 95.4 (80.0-100.0) fL MCH 30.3 (25.0-35.0) pg MCHC 31.8 (31.0-37.0) g/dL RDW 14.8 (11.5-15.5) % Plt Count 272 (150-450) k/uL MPV 8.3 Neutrophils % 66 % Lymphocytes % 23 % Monocytes % 6 % Eosinophils % 3 % Basophils % 1 % Neutrophils # 5.7 (1.3-7.7) k/uL Lymphocytes # 2.0 (1.0-4.8) k/uL Monocytes # 0.5 (0-1.0) k/uL Eosinophils # 0.2 (0-0.7) k/uL Basophils # 0.1 (0-0.2) k/uL PT 9.7 (9.0-12.0) sec INR 0.9 (<1.2) APTT 20.6 L (22.0-30.0) sec Sodium (137-145) mmol/L Potassium (3.5-5.1) mmol/L Chloride (98-107) mmol/L Carbon Dioxide (22-30) mmol/L Anion Gap mmol/L BUN (7-17) mg/dL Creatinine (0.52-1.04) mg/dL Est GFR (CKD-EPI)AfAm (>60 ml/min/1.73 sqM) Est GFR (CKD-EPI)NonAf (>60 ml/min/1.73 sqM) Glucose (74-99) mg/dL Plasma Lactic Acid Walter (0.7-2.0) mmol/L Calcium (8.4-10.2) mg/dL Magnesium (1.6-2.3) mg/dL Troponin I (0.000-0.034) ng/mL NT-Pro-B Natriuret Pep pg/mL Stool Occult Blood (Negative) Coronavirus (PCR) Not Detected (Not Detectd) 05/04/21 05/04/21 05/04/21 Range/Units 13:59 13:59 13:59 WBC (3.8-10.6) k/uL RBC (3.80-5.40) m/uL Hgb (11.4-16.0) gm/dL Hct (34.0-46.0) % MCV (80.0-100.0) fL MCH (25.0-35.0) pg MCHC (31.0-37.0) g/dL RDW (11.5-15.5) % Plt Count (150-450) k/uL MPV Neutrophils % % Lymphocytes % % Monocytes % % Eosinophils % % Basophils % % Neutrophils # (1.3-7.7) k/uL Lymphocytes # (1.0-4.8) k/uL Monocytes # (0-1.0) k/uL Eosinophils # (0-0.7) k/uL Basophils # (0-0.2) k/uL PT (9.0-12.0) sec INR (<1.2) APTT (22.0-30.0) sec Sodium 136 L (137-145) mmol/L Potassium 4.1 (3.5-5.1) mmol/L Chloride 100 (98-107) mmol/L Carbon Dioxide 33 H (22-30) mmol/L Anion Gap 3 mmol/L BUN 11 (7-17) mg/dL Creatinine 0.53 (0.52-1.04) mg/dL Est GFR (CKD-EPI)AfAm >90 (>60 ml/min/1.73 sqM) Est GFR (CKD-EPI)NonAf >90 (>60 ml/min/1.73 sqM) Glucose 95 (74-99) mg/dL Plasma Lactic Acid Walter 0.9 (0.7-2.0) mmol/L Calcium 8.9 (8.4-10.2) mg/dL Magnesium 2.1 (1.6-2.3) mg/dL Troponin I 0.037 H* (0.000-0.034) ng/mL NT-Pro-B Natriuret Pep pg/mL Stool Occult Blood (Negative) Coronavirus (PCR) (Not Detectd) 05/04/21 05/04/21 Range/Units 13:59 14:40 WBC (3.8-10.6) k/uL RBC (3.80-5.40) m/uL Hgb (11.4-16.0) gm/dL Hct (34.0-46.0) % MCV (80.0-100.0) fL MCH (25.0-35.0) pg MCHC (31.0-37.0) g/dL RDW (11.5-15.5) % Plt Count (150-450) k/uL MPV Neutrophils % % Lymphocytes % % Monocytes % % Eosinophils % % Basophils % % Neutrophils # (1.3-7.7) k/uL Lymphocytes # (1.0-4.8) k/uL Monocytes # (0-1.0) k/uL Eosinophils # (0-0.7) k/uL Basophils # (0-0.2) k/uL PT (9.0-12.0) sec INR (<1.2) APTT (22.0-30.0) sec Sodium (137-145) mmol/L Potassium (3.5-5.1) mmol/L Chloride (98-107) mmol/L Carbon Dioxide (22-30) mmol/L Anion Gap mmol/L BUN (7-17) mg/dL Creatinine (0.52-1.04) mg/dL Est GFR (CKD-EPI)AfAm (>60 ml/min/1.73 sqM) Est GFR (CKD-EPI)NonAf (>60 ml/min/1.73 sqM) Glucose (74-99) mg/dL Plasma Lactic Acid Walter (0.7-2.0) mmol/L Calcium (8.4-10.2) mg/dL Magnesium (1.6-2.3) mg/dL Troponin I (0.000-0.034) ng/mL NT-Pro-B Natriuret Pep 1910 pg/mL Stool Occult Blood Negative (Negative) Coronavirus (PCR) (Not Detectd) Critical Care Time Critical Care Time: Yes Total Critical Care Time: 33 Disposition Clinical Impression: Anemia, Hypoxia Disposition: ADMITTED IP TO THIS [facility] Condition: Critical Referrals: Janis Billy MD [Primary Care Provider] - 1-2 days
--- NOTE | 2021-05-04 13:35 | CT ---
EXAMINATION TYPE: CT angio chest DATE OF EXAM: 05/04/2021 COMPARISON: Chest x-ray 1 week ago. CTA chest March 31, 2021 HISTORY: pe, shortness of breath. CT DLP: 494.7 mGycm. Automated Exposure Control for Dose Reduction was Utilized. CONTRAST: CTA scan of the thorax is performed with IV Contrast, patient injected with 100 mL of Isovue 370, pul monary embolism protocol. MIP Images are created on CT scanner and reviewed. FINDINGS: LUNGS: Exam suboptimal as patient unable to hold breath. There is significant respiratory motion randy fact degradation. Images obtained in expiration. There is bibasilar atelectasis and/or less likely co nsolidation. No pleural effusion or pneumothorax. MEDIASTINUM: There is slightly suboptimal study with some heterogeneity in the periphery but no CT ev idence for acute pulmonary embolism persistent enlarged main pulmonary artery of 3.6 cm axial image 4 4. Satisfactory enhancement of the thoracic aorta without aneurysm or dissection. There are no greate r than 1 cm hilar or mediastinal lymph nodes. No cardiomegaly or pericardial effusion is seen. Ther e is 1.1 cm low dense lesion posterior aspect of left thyroid lobe on axial image 8 could reflect thy roid nodule or parathyroid adenoma, correlate clinically. OTHER: Visualized liver is heterogeneously hypodense consistent with diffuse fatty infiltration. Chol ecystectomy clips are redemonstrated. There are calcifications throughout the spleen with surrounding ascites now present. IMPRESSION: 1. Suboptimal study without acute pulmonary embolism. 2. Bibasilar atelectasis and/or less likely consolidation redemonstrated. No new acute infiltrate. Un derlying pulmonary artery hypertension redemonstrated. 3. Possible posterior 1.1 cm left thyroid nodule versus adjacent parathyroid adenoma. Correlate clini lisseth. Nonemergent Thyroid ultrasound follow-up advised. 4. New surrounding perisplenic ascites of uncertain etiology, correlate clinically.
--- NOTE | 2021-05-04 13:46 | XR ---
EXAMINATION TYPE: XR chest 1V portable DATE OF EXAM: 05/04/2021 COMPARISON: Chest x-ray April 27, 2021. CTA chest earlier today HISTORY: Dyspnea. TECHNIQUE: Single frontal view of the chest is obtained. FINDINGS: There is poor inspiration with bibasilar opacities. The cardiac silhouette size is stable and within normal limits. The osseous structures are intact. Cholecystectomy clips redemonstrated. IMPRESSION: Poor inspiration with bibasilar atelectasis and/or less likely acute infiltrates.
[2021-05-04 14:18] LABS: Basophils # (A) 0.1 k/uL (0-0.2); Basophils % (A) 1 %; Eosinophils # (A) 0.2 k/uL (0-0.7); Eosinophils % (A) 3 %; HCT 27.7 % (34.0-46.0); Lymphocytes % (A) 23 %; MCH 30.3 pg (25.0-35.0); MCHC 31.8 g/dL (31.0-37.0); MCV 95.4 fL (80.0-100.0); Mean Platelet Volume 8.3; Monocytes # (A) 0.5 k/uL (0-1.0); Monocytes % (A) 6 %; Neutrophils # (A) 5.7 k/uL (1.3-7.7); Neutrophils % (A) 66 %; Platelet Count 272 k/uL (150-450); RDW 14.8 % (11.5-15.5); WBC 8.6 k/uL (3.8-10.6)
[2021-05-04 14:29] LABS: HGB 8.8 gm/dL (11.4-16.0)
[2021-05-04 14:33] LABS: African American GFR (CKD) >90 (>60 ml/min/1.73 sqM); Anion Gap 3 mmol/L; Blood Urea Nitrogen 11 mg/dL (7-17); Calcium 8.9 mg/dL (8.4-10.2); Carbon Dioxide 33 mmol/L (22-30); Chloride 100 mmol/L (98-107); Glucose 95 mg/dL (74-99); Magnesium 2.1 mg/dL (1.6-2.3); Non-African American GFR(CKD) >90 (>60 ml/min/1.73 sqM); Potassium 4.1 mmol/L (3.5-5.1); Sodium 136 mmol/L (137-145)
[2021-05-04 14:47] LABS: INR 0.9 (<1.2); Prothrombin Time 9.7 sec (9.0-12.0)
[2021-05-04 14:53] LABS: Partial Thromboplastin Time 20.6 sec (22.0-30.0)
[2021-05-04] MEDS ORDERED: NALOXONE 0.4 MG/ML 1 ML VIAL IV PRN ×2 (15:13→16:44)
[2021-05-04] MEDS ORDERED: ACETAMINOPHEN TAB 325 MG TAB PO PRN ×2 (15:13→16:44)
--- NOTE | 2021-05-04 15:20 | CT ---
EXAMINATION TYPE: CT abdomen pelvis wo con DATE OF EXAM: 05/04/2021 HISTORY: Post OP ovarian cyst. CT DLP: 997.8 mGycm. Automated Exposure Control for Dose Reduction was Utilized. TECHNIQUE: CT scan of the abdomen and pelvis is performed without oral or IV contrast. COMPARISON: CTA chest earlier today FINDINGS: Within the limitations of a non-contrast study, the following observations are made. LUNG BASES: Please see same day CTA chest report for complete details on the lung bases. Tiny bilater al pleural effusions are felt present. LIVER/GB: Cholecystectomy clips are redemonstrated. PANCREAS: No suspicious abnormality. SPLEEN: Scattered calcifications throughout the spleen are present consistent with product of old gra nulomatous disease. Poor visualization of adjacent fluid seen on recent CT as spleen is less dense cu rrently and the adjacent fluid is suspected isodense currently. ADRENALS: No significant abnormality is seen. KIDNEYS: Contrast filling the collecting systems and bladder. BOWEL: Suboptimal evaluation without enteric contrast. No suspicious small or large bowel dilatation. . GENITAL ORGANS: Suspect anteverted uterus. Suspect adjacent isodense fluid or blood product. Anterior ly there foci of air in the anterior pelvic subcutaneous tissue with additional involvement deep to t he rectus sheath. Poor visualization of ovaries secondary to pelvic hyperdense fluid. LYMPH NODES: No greater than 1cm abdominal or pelvic lymph nodes are appreciated. OSSEOUS STRUCTURES: No significant abnormality is seen. OTHER: Small amount of hyperdense fluid extends into the infracolic gutters bilaterally axial image 6 2. IMPRESSION: Small amount of hyperdense fluid or intraperitoneal hemorrhage into the lower abdomen and pelvis. Poor visualization of uterus and ovaries secondary to isodensity of adjacent hyperdense flui d. Small amount of hyperdense fluid or hemorrhage adjacent to the spleen is suspected. Postsurgical c hanges anterior pelvic wall are identified.
[2021-05-04] MEDS ORDERED: PANTOPRAZOLE 40 MG/10 ML VIAL IV SCH (15:30)
[2021-05-04] MEDS ORDERED: AZITHROMYCIN 500 MG in SODIUM CHLORIDE 0.9% 250 ML IVPB SCH (17:00)
--- NOTE | 2021-05-04 17:07 | P.HPMEDMHU ---
History of Present Illness H&P Date: 05/04/21 Chief Complaint: sob 45-year-old female with multiple medical problems including muscular dystrophy likely chronic respiratory failure for which she is supposed to use BiPAP at night was been hypoxic in the last few days as per family patient did have recently a alliance party and cyst removed patient is weak appears to pale Review of systems and systems has been reviewed all negative and positive findings as per history of present illness Constitutional: No acute distress, conversant, pleasant Eyes: Anicteric sclerae, moist conjunctiva, no lid-lag PERRLA ENMT: NC/AT Oropharynx clear, no erythema, exudates Neck: Supple, FROM, no masses, or JVD No carotid bruits No thyromegaly Lungs: Clear to auscultation Clear to percussion Normal respiratory effort, no accessory muscle use Cardiovascular: Heart regular in rate and rhythm, No murmurs, gallops, or rubs No peripheral edema Abdominal: Soft Nontender, no guarding, rebound or rigidity Abdomen moving with respiration Normoactive bowel sounds No hepatomegaly, No splenomegaly No palpable mass No abdominal wall hernia noted Skin: Normal temperature, tone, texture, turgor No induration No subcutaneous nodules No rash, lesions No ulcers Extremities: No digital cyanosis No clubbing Pedal pulses intact and symmetrical Radial pulses intact and symmetrical Normal gait and station No calf tenderness Psychiatric:Alert and oriented to person, place and time Appropriate affect Intact judgement Neuro: Generalized weakness Acute on chronic hypoxic respiratory failure exact etiology not clear currently stable could be deterioration all the muscular dystrophy and decreased lung functioning pulmonology has been consulted also aspiration pneumonia cannot be ruled out patient has been started on IV antibiotics and steroids Muscular dystrophy Recent ovarian surgery gynecology has been consulted Anemia monitor closely for bleeding if hemoglobin drops less than 8 patient will be transfused Generalized weakness No evidence of PE per computed tomography scan Past Medical History Past Medical History: Memory Impairment, Sleep Apnea/CPAP/BIPAP Additional Past Medical History / Comment(s): Current UTI, on Macrobid per Dr Peralta, to be completed 05/01/21. 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 Uses AFO (Ankle/foot Orthotics and a cane). Herpes Type 2. "Intraventricular conduction delay, P waves are inverted on EKG." Low BP. Urinary Incontinence. Recent hospitalization X1 week(discharged 04/05/21)with abdominal pain/ovarian cyst and diagnosed with Asymptomatic Covid Pneumonia and had "superficial thrombophlebitis attributed to multiple IV attempts". History of Any Multi-Drug Resistant Organisms: None Reported Past Surgical History: Adenoidectomy, Cholecystectomy, Tonsillectomy, Tubal Li gation Additional Past Surgical History / Comment(s): repair of fractured jaw, left ovary removed. Past Anesthesia/Blood Transfusion Reactions: Previous Problems w/ Anesthesia Additional Past Anesthesia/Blood Transfusion Reaction / Comment(s): Hard to wake up. Mother states patient should not have Succinylcholine due to Myotonic Muscular Dystrophy. Past Psychological History: Anxiety, Depression Smoking Status: Never smoker Past Alcohol Use History: None Reported Past Drug Use History: None Reported - Past Family History Mother Family Medical History: Hypertension Additional Family Medical History / Comment(s): amputee from infection in leg Father Additional Family Medical History / Comment(s): myotinic muscular dystrophy - family Family Medical History: No Reported History Medications and Allergies Home Medications Medication Instructions Recorded Confirmed Type Acyclovir 400 mg PO HS 03/29/21 05/04/21 History Cholecalciferol (Vitamin D3) 125 mcg PO DAILY 03/29/21 05/04/21 History [Vitamin D3 (125 MCG = 5,000 IU)] Escitalopram [Lexapro] 20 mg PO HS 03/29/21 05/04/21 History guanFACINE HCL [guanFACINE HCL ER] 1 mg PO HS 03/29/21 05/04/21 History Meclizine [Antivert] 12.5 mg PO DAILY PRN 05/04/21 05/04/21 History Pregabalin [Lyrica] 75 mg PO DAILY 05/04/21 05/04/21 History Rosuvastatin Calcium [Crestor] 5 mg PO DAILY 05/04/21 05/04/21 History Tolterodine ER [Detrol LA] 2 mg PO DAILY 05/04/21 05/04/21 History Allergies Allergy/AdvReac Type Severity Reaction Status Date / Time hydromorphone [From Dilaudid] AdvReac Confusion Verified 05/04/21 13:53 Physical Exam Vitals: Vital Signs Temp Pulse Resp BP Pulse Ox 11/17/21 15:27 85 18 109/67 95 05/04/21 14:00 18 05/04/21 12:24 97.8 F 107 H 20 95/65 87 L Intake and Output 05/04/21 05/04/21 05/04/21 06:59 14:59 22:59 Other: Weight 77.111 kg Cranial Nerve Examination - Cranial Nerves Cranial Nerve II- Optic: Intact Cranial Nerve III- Oculomotor: Intact Cranial Nerve IV- Trochlear: Intact Cranial Nerve V- Trigeminal: Intact Cranial Nerve - Abducens: Intact Cranial Nerve VII- Facial: Intact Cranial Nerve VIII- Auditory: Intact Cranial Nerve IX- Glossopharyngeal: Intact Cranial Nerve X- Vagus: Intact Cranial Nerve XI- Accessory: Intact Cranial Nerve XII- Hypoglossal: Intact Results CBC & Chem 7: 05/04/21 13:59 05/04/21 13:59 Labs: Abnormal Lab Results - Last 24 Hours (Table) 05/04/21 05/04/21 05/04/21 Range/Units 13:59 13:59 13:59 RBC 2.90 L (3.80-5.40) m/uL Hgb 8.8 L D (11.4-16.0) gm/dL Hct 27.7 L (34.0-46.0) % APTT 20.6 L (22.0-30.0) sec Sodium 136 L (137-145) mmol/L Carbon Dioxide 33 H (22-30) mmol/L Troponin I (0.000-0.034) ng/mL 05/04/21 Range/Units 13:59 RBC (3.80-5.40) m/uL Hgb (11.4-16.0) gm/dL Hct (34.0-46.0) % APTT (22.0-30.0) sec Sodium (137-145) mmol/L Carbon Dioxide (22-30) mmol/L Troponin I 0.037 H* (0.000-0.034) ng/mL
[2021-05-04] MEDS ORDERED: methylPREDNISolone SOD SUCCI 40 MG/ML 1 ML VIAL IV SCH (18:00)
[2021-05-04] MEDS: SODIUM CHLORIDE 0.9% 1,000 ML IV SCH ×2 (22:18→22:41)
[2021-05-04] MEDS: KETOROLAC 30 MG/ML 1 ML VIAL IVP PRN (22:19)
[2021-05-04] MEDS: methylPREDNISolone SOD SUCCI 40 MG/ML 1 ML VIAL IV SCH (22:19)
[2021-05-04] MEDS: PANTOPRAZOLE 40 MG/10 ML VIAL IV SCH (22:41)
[2021-05-05] MEDS: SODIUM CHLORIDE 0.9% 1,000 ML IV SCH ×2 (05:47→21:39)
[2021-05-05] MEDS: methylPREDNISolone SOD SUCCI 40 MG/ML 1 ML VIAL IV SCH ×3 (05:47→21:37)
--- NOTE | 2021-05-05 08:16 | P.CON ---
Consult Note - . Consult date: 05/05/21 Assessment/Plan:: This is a 45-year-old female 0 who was hospitalized approximately 4-6 weeks ago with a severe Covid infection. During the course of that hospitalization, computed tomography scan of the pelvis revealed a complex left adnexal mass. I was consulted at that time and plan was for surgery. 3 days ago patient was admitted under my care and underwent an exploratory laparotomy, left salpingo-oophorectomy and pelvic washings. Pathology has returned benign serous cystadenoma of the ovary. Patient went home 2 days ago, but repeat presented last night with hypoxemia. She has muscular dystrophy and a poor pulmonary status as a baseline. She was noted to be hypoxic in the emergency room and therefore admitted. Dr. Randall has been consulted of pulmonology service. This morning her incision is clean and dry, Steri-Strips applied. Abdomen is soft, minimally tender consistent with postoperative status. No rebound or guarding. No CVA tenderness. Active bowel sounds. She denies pain. Pulmonary status is slowly improving. I have reviewed the negative pathology report with the patient at this time. Her admission hemoglobin was slightly low at 8.8, I suspect this is hemodilutional. No evidence of active bleeding. CBC is pending for this morning. Continue with medical management at this point, likely home oxygen her discretion of the medical staff and Dr. Terrell. I will see the patient in the office in 2 weeks as planned for postoperative check. Thank you for the consultation.
[2021-05-05] MEDS: PANTOPRAZOLE 40 MG/10 ML VIAL IV SCH (08:19)
--- NOTE | 2021-05-05 09:54 | P.CNPUL ---
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 She is also having complaints of abdominal discomfort and was found to have a large right ovarian cyst and had undergone a exploratory laparotomy, pelvic washings, left salpingo-oophorectomy by Dr. Peralta on 05/02/2021. Pathology negative for malignancy. She was brought into the emergency room yesterday by her family after they found her oxygen levels to be low at home. They also felt her to be quite pale. White count 8.6. Hemoglobin 8.8. Platelets 272. Sodium 136. Potassium 4.1. Creatinine 0.53. Troponins negative 3. ProBNP 1910. Stool for occult blood was negative. Craig virus not detected. Initial O2 saturation was 87% on room air. She's currently at 94% on 3 L/m per nasal cannula. She's afebrile. Hemodynamically stable. She i s seen today in consultation on the regular medical floor. Resting comfortably in bed. Awake and alert in no acute distress. Hoping to go home today. May require home oxygen. CT angiogram did not reveal any acute pulmonary embolism. There is some bibasilar atelectasis. No acute infiltrate. Computed tomography scan of the abdomen and pelvis revealed a small amount of hyperdense fluid or intraperitoneal hemorrhage in the lower abdomen and pelvis. Postsurgical changes noted. Review of Systems REVIEW OF SYSTEMS: CONSTITUTIONAL: Denies any recent significant weight loss or weight gain. EYES: Denies change in vision. EARS, NOSE, MOUTH, THROAT: Denies headaches, denies sore throat. CARDIOVASCULAR: Denies chest pain, palpitations or syncopal episodes. RESPIRATORY: Positive for shortness of breath, cough, congestion no hemoptysis. GASTROINTESTINAL: Denies change in appetite, denies abdominal pain GENITOURINARY: Denies hematuria, denies infections. MUSKULOSKELETAL: Denies pain, denies swelling. INTEGUMENTARY: Denies rash, denies eczema. NEUROLOGICAL: Denies recent memory loss, no recent seizure activity. PSYCHIATRIC: Denies anxiety, denies depression. HEMATOLOGIC/LYMPHATIC: Denies anemia, denies enlarged lymph nodes. Past Medical History Past Medical History: Memory Impairment, Sleep Apnea/CPAP/BIPAP Additional Past Medical History / Comment(s): Current UTI, on Macrobid per Dr Peralta, to be completed 05/01/21. 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 Uses AFO (Ankle/foot Orthotics and a cane). Herpes Type 2. "Intraventricular conduction delay, P waves are inverted on EKG." Low BP. Urinary Incontinence. Recent hospitalization X1 week(discharged 04/05/21)with abdominal pain/ovarian cyst and diagnosed with Asymptomatic Covid Pneumonia and had "superficial thrombophlebitis attributed to multiple IV attempts". History of Any Multi-Drug Resistant Organisms: None Reported Past Surgical History: Adenoidectomy, Cholecystectomy, Tonsillectomy, Tubal Ligation Additional Past Surgical History / Comment(s): repair of fractured jaw, left ovary removed. Past Anesthesia/Blood Transfusion Reactions: Previous Problems w/ Anesthesia Additional Past Anesthesia/Blood Transfusion Reaction / Comment(s): Hard to wake up. Mother states patient should not have Succinylcholine due to Myotonic Muscular Dystrophy. Past Psychological History: Anxiety, Depression Smoking Status: Never smoker Past Alcohol Use History: None Reported Past Drug Use History: None Reported - Past Family History Mother Family Medical History: Hypertension Additional Family Medical History / Comment(s): amputee from infection in leg Father Additional Family Medical History / Comment(s): myotinic muscular dystrophy - family Family Medical History: No Reported History Medications and Allergies Home Medications Medication Instructions Recorded Confirmed Type Acyclovir 400 mg PO HS 03/29/21 05/04/21 History Cholecalciferol (Vitamin D3) 125 mcg PO DAILY 03/29/21 05/04/21 History [Vitamin D3 (125 MCG = 5,000 IU)] Escitalopram [Lexapro] 20 mg PO HS 03/29/21 05/04/21 History guanFACINE HCL [guanFACINE HCL ER] 1 mg PO HS 03/29/21 05/04/21 History Meclizine [Antivert] 12.5 mg PO DAILY PRN 05/04/21 05/04/21 History Pregabalin [Lyrica] 75 mg PO DAILY 05/04/21 05/04/21 History Rosuvastatin Calcium [Crestor] 5 mg PO DAILY 05/04/21 05/04/21 History Tolterodine ER [Detrol LA] 2 mg PO DAILY 05/04/21 05/04/21 History Allergies Allergy/AdvReac Type Severity Reaction Status Date / Time hydromorphone [From Dilaudid] AdvReac Confusion Verified 05/04/21 13:53 Physical Exam Vitals: Vital Signs Temp Pulse Pulse Resp BP BP Pulse Ox 05/05/21 08:40 94 L 05/05/21 05:55 98.1 F 78 18 103/69 94 L 05/05/21 01:08 99 16 05/04/21 22:00 97.7 F 99 18 98/65 92 L 05/04/21 21:25 82 18 112/78 95 05/04/21 15:27 85 18 109/67 95 05/04/21 14:00 18 05/04/21 12:24 97.8 F 107 H 20 95/65 87 L Intake and Output 05/04/21 05/05/21 05/05/21 22:59 06:59 14:59 Intake Total 1040 Balance 1040 Intake: Intake, IV Titration 450 Amount Sodium Chloride 0.9% 1, 400 000 ml @ 130 mls/hr IV . Q7H42M KEVEN Rx#:[id number] cefTRIAXone 1 gm In 50 Sodium Chloride 0.9% 50 ml @ 100 mls/hr IVPB Q24H KEVEN Rx#:[id number] Oral 590 Other: Voiding Method Toilet # Voids 3 Weight 77.111 kg 84.5 kg GENERAL EXAM: Alert, doesn't 45-year-old female patient, on 3 L nasal cannula, fairly comfortable in no apparent distress. HEAD: Normocephalic. EYES: Normal reaction of pupils, equal size. NOSE: Clear with pink turbinates. THROAT: No erythema or exudates. NECK: No masses, no JVD. CHEST: No chest wall deformity. LUNGS: Equal air entry with faint crackles in the posterior bases CVS: S1 and S2 normal with no audible murmur, regular rhythm. ABDOMEN: Surgical incisions clean dry well approximated. Steri-Strips intact. No hepatosplenomegaly, normal bowel sounds, no guarding or rigidity. SPINE: No scoliosis or deformity SKIN: No rashes CENTRAL NERVOUS SYSTEM: No focal deficits, tone is normal in all 4 extremities. EXTREMITIES: There is no peripheral edema. No clubbing, no cyanosis. Peripheral pulses are intact. Results - Laboratory Findings CBC and BMP: 05/04/21 13:59 05/04/21 13:59 PT/INR, D-dimer PT 9.7 sec (9.0-12.0) 05/04/21 13:59 INR 0.9 (<1.2) 05/04/21 13:59 Abnormal lab findings: Abnormal Labs 05/04/21 05/04/21 05/04/21 13:59 13:59 13:59 RBC 2.90 L Hgb 8.8 L D Hct 27.7 L APTT 20.6 L Sodium 136 L Carbon Dioxide 33 H Troponin I 05/04/21 13:59 RBC Hgb Hct APTT Sodium Carbon Dioxide Troponin I 0.037 H* - Diagnostic Findings Chest x-ray: image reviewed CT scan - chest: image reviewed Assessment and Plan Assessment: 1 Acute hypoxemic respiratory failure secondary to subsegmental atelectasis, chronic right elevated hemidiaphragm, chronic muscle weakness secondary to m yotonic muscular dystrophy, some residual changes from COVID-19 pneumonia. 2 Recent laparoscopic right salpingo-oophorectomy on 05/02/2021, negative for malignancy. 3 Recent admission for COVID-19 pneumonia in March 2021 4 History of hypercapnic respiratory failure requiring a Pap's machine at night with a minimum pressure of 12 and a maximum of 16. Follows with pulmonary at [facility] in [place] 5 Chronic elevation of right hemidiaphragm with low lung volumes U 6 Myotonic muscular dystrophy 7 History of anxiety/depression Plan: The patient was seen and evaluated by Dr. Terrell CAT scans and labs reviewed Cleared for discharge from the pulmonary standpoint Encouraged regarding the use of the incentive spirometer and cough and deep breathing exercises Should be tested for possible home O2 Continue her home APap device Follow-up with pulmonology at [facility] in [place] I, the cosigning physician, performed a history & physical examination of the patient. Lungs sounds crackles in the posterior bases. Maintaining good O2 saturations in the 90s on 3 L/m per nasal cannula. I discussed the assessment and plan of care with my nurse practitioner, Amarilys Bowman. I attest to the above note as dictated by her. Time with Patient: Greater than 30
[2021-05-05 10:33] LABS: Basophils % (A) 0 %; Eosinophils % (A) 0 %; HCT 25.4 % (34.0-46.0); HGB 8.4 gm/dL (11.4-16.0); Lymphocytes # (A) 0.9 k/uL (1.0-4.8); Lymphocytes % (A) 11 %; MCH 31.5 pg (25.0-35.0); MCHC 33.1 g/dL (31.0-37.0); MCV 95.1 fL (80.0-100.0); Mean Platelet Volume 8.4; Monocytes # (A) 0.1 k/uL (0-1.0); Monocytes % (A) 2 %; Neutrophils # (A) 7.2 k/uL (1.3-7.7); Neutrophils % (A) 86 %; Platelet Count 330 k/uL (150-450); RBC 2.67 m/uL (3.80-5.40); RDW 15.5 % (11.5-15.5); WBC 8.4 k/uL (3.8-10.6)
[2021-05-05 10:36] LABS: ALT 56 U/L (4-34); AST 63 U/L (14-36); African American GFR (CKD) >90 (>60 ml/min/1.73 sqM); Albumin 2.9 g/dL (3.5-5.0); Albumin/Globulin Ratio 1.1; Alkaline Phosphatase 159 U/L (38-126); Anion Gap 2 mmol/L; Blood Urea Nitrogen 8 mg/dL (7-17); Calcium 8.4 mg/dL (8.4-10.2); Carbon Dioxide 31 mmol/L (22-30); Chloride 106 mmol/L (98-107); Globulin 2.6 g/dL; Glucose 151 mg/dL (74-99); Non-African American GFR(CKD) >90 (>60 ml/min/1.73 sqM); Potassium 4.2 mmol/L (3.5-5.1); Sodium 139 mmol/L (137-145); Total Bilirubin 1.3 mg/dL (0.2-1.3); Total Protein 5.5 g/dL (6.3-8.2)
--- NOTE | 2021-05-05 10:45 | P.PN ---
Subjective Progress Note Date: 05/05/21 Principal diagnosis: Feels okay today still weak onstitutional: No acute distress, conversant, pleasant Eyes: Anicteric sclerae, moist conjunctiva, no lid-lag PERRLA ENMT: NC/AT Oropharynx clear, no erythema, exudates Neck: Supple, FROM, no masses, or JVD No carotid bruits No thyromegaly Lungs: Clear to auscultation Clear to percussion Normal respiratory effort, no accessory muscle use Cardiovascular: Heart regular in rate and rhythm, No murmurs, gallops, or rubs No peripheral edema Abdominal: Soft Nontender, no guarding, rebound or rigidity Abdomen moving with respiration Normoactive bowel sounds No hepatomegaly, No splenomegaly No palpable mass No abdominal wall hernia noted Skin: Normal temperature, tone, texture, turgor No induration No subcutaneous nodules No rash, lesions No ulcers Extremities: No digital cyanosis No clubbing Pedal pulses intact and symmetrical Radial pulses intact and symmetrical Normal gait and station No calf tenderness Psychiatric:Alert and oriented to person, place and time Appropriate affect Intact judgement Neuro: Generalized weakness Acute on chronic hypoxic respiratory failure exact etiology not clear currently stable could be deterioration all the muscular dystrophy and decreased lung functioning pulmonology has been consulted also aspiration pneumonia cannot be ruled out patient has been started on IV antibiotics and steroids Muscular dystrophy Recent ovarian surgery gynecology has been consulted Anemia monitor closely for bleeding if hemoglobin drops less than 8 patient will be transfused Generalized weakness No evidence of PE per computed tomography scan Patient is still hypoxic but overall stable pulmonology following also continue to monitor hemoglobin Past Medical History Past Medical History: Memory Impairment, Sleep Apnea/CPAP/BIPAP Additional Past Medical History / Comment(s): Current UTI, on Macrobid per Dr Peralta, to be completed 05/01/21. 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 Uses AFO (Ankle/foot Orthotics and a cane). Herpes Type 2. "Intraventricular conduction delay, P waves are inverted on EKG." Low BP. Urinary Incontinence. Recent hospitalization X1 week(discharged 04/05/21)with abdominal pain/ovarian cyst and diagnosed with Asymptomatic Covid Pneumonia and had "superficial thrombophlebitis attributed to multiple IV atte mpts". History of Any Multi-Drug Resistant Organisms: None Reported Past Surgical History: Adenoidectomy, Cholecystectomy, Tonsillectomy, Tubal Ligation Additional Past Surgical History / Comment(s): repair of fractured jaw, left ovary removed. Past Anesthesia/Blood Transfusion Reactions: Previous Problems w/ Anesthesia Additional Past Anesthesia/Blood Transfusion Reaction / Comment(s): Hard to wake up. Mother states patient should not have Succinylcholine due to Myotonic Muscular Dystrophy. Past Psychological History: Anxiety, Depression Smoking Status: Never smoker Past Alcohol Use History: None Reported Past Drug Use History: None Reported feels okay today still weak Objective - Vital Signs Vital signs: Vital Signs Temp 98.1 F 05/05/21 05:55 Pulse 78 05/05/21 05:55 Resp 18 05/05/21 05:55 BP 103/69 05/05/21 05:55 Pulse Ox 94 L 05/05/21 08:40 Intake & Output 05/04/21 05/05/21 05/05/21 18:59 06:59 18:59 Intake Total 1040 Balance 1040 Weight 77.111 kg 84.5 kg Intake: Intake, IV Titration 450 Amount Sodium Chloride 0.9% 1, 400 000 ml @ 130 mls/hr IV . Q7H42M KEVEN Rx#:[id number] cefTRIAXone 1 gm In 50 Sodium Chloride 0.9% 50 ml @ 100 mls/hr IVPB Q24H KEVEN Rx#:[id number] Oral 590 Other: Voiding Method Toilet # Voids 3 - Labs CBC & Chem 7: 05/05/21 09:28 05/05/21 09:30 Labs: Abnormal Lab Results - Last 24 Hours (Table) 05/04/21 05/04/21 05/04/21 Range/Units 13:59 13:59 13:59 RBC 2.90 L (3.80-5.40) m/uL Hgb 8.8 L D (11.4-16.0) gm/dL Hct 27.7 L (34.0-46.0) % Lymphocytes # (1.0-4.8) k/uL APTT 20.6 L (22.0-30.0) sec Sodium 136 L (137-145) mmol/L Carbon Dioxide 33 H (22-30) mmol/L Creatinine (0.52-1.04) mg/dL Glucose (74-99) mg/dL AST (14-36) U/L ALT (4-34) U/L Alkaline Phosphatase (38-126) U/L Troponin I (0.000-0.034) ng/mL Total Protein (6.3-8.2) g/dL Albumin (3.5-5.0) g/dL 05/04/21 05/05/21 05/05/21 Range/Units 13:59 09:28 09:30 RBC 2.67 L (3.80-5.40) m/uL Hgb 8.4 L (11.4-16.0) gm/dL Hct 25.4 L (34.0-46.0) % Lymphocytes # 0.9 L (1.0-4.8) k/uL APTT (22.0-30.0) sec Sodium (137-145) mmol/L Carbon Dioxide 31 H (22-30) mmol/L Creatinine 0.43 L (0.52-1.04) mg/dL Glucose 151 H (74-99) mg/dL AST 63 H (14-36) U/L ALT 56 H (4-34) U/L Alkaline Phosphatase 159 H (38-126) U/L Troponin I 0.037 H* (0.000-0.034) ng/mL Total Protein 5.5 L (6.3-8.2) g/dL Albumin 2.9 L (3.5-5.0) g/dL
[2021-05-05] MEDS: KETOROLAC 30 MG/ML 1 ML VIAL IVP PRN (19:37)
[2021-05-06] MEDS: AZITHROMYCIN 500 MG in SODIUM CHLORIDE 0.9% 250 ML IVPB SCH ×2 (00:17→22:24)
[2021-05-06] MEDS: SODIUM CHLORIDE 0.9% 1,000 ML IV SCH ×3 (00:18→15:12)
[2021-05-06] MEDS: ONDANSETRON 4 MG/2 ML VIAL IVP PRN ×2 (00:41→22:48)
[2021-05-06] MEDS: KETOROLAC 30 MG/ML 1 ML VIAL IVP PRN ×2 (03:27→20:07)
[2021-05-06] MEDS: methylPREDNISolone SOD SUCCI 40 MG/ML 1 ML VIAL IV SCH ×3 (06:13→20:59)
[2021-05-06 07:56] LABS: Anisocytosis Slight; HCT 24.7 % (34.0-46.0); HGB 7.8 gm/dL (11.4-16.0); Hypochromasia Slight; MCH 30.7 pg (25.0-35.0); MCHC 31.6 g/dL (31.0-37.0); MCV 97.3 fL (80.0-100.0); Macrocytosis Slight; Mean Platelet Volume 8.8; Platelet Count 362 k/uL (150-450); RBC 2.54 m/uL (3.80-5.40); RDW 16.7 % (11.5-15.5); WBC 9.5 k/uL (3.8-10.6)
[2021-05-06 09:04] LABS: Lymphocytes # (M) 0.67 k/uL (1.0-4.8); Metamyelocytes % 1 %; Monocytes # (M) 0.38 k/uL (0-1.0); Myelocytes # (M) 0.19 k/uL (0); Myelocytes % 2 %; Neutrophils # (M) 8.27 k/uL (1.3-7.7); Neutrophils % (M) 87 %; Nucleated Red Blood Cells 0 /100 WBC (0-0); Total Cells Counted 200
[2021-05-06 09:05] LABS: Poikilocytosis (M) Present; Polychromasia Present
[2021-05-06] MEDS: PANTOPRAZOLE 40 MG/10 ML VIAL IV SCH (09:22)
[2021-05-06 11:39] LABS: African American GFR (CKD) 137.4 (60.0-200.0); Albumin 3.3 g/dL (3.8-4.9); Albumin/Globulin Ratio 1.74 (1.60-3.17); Anion Gap 10.3 mmol/L (4.00-12.00); BUN/Creat Ratio 20.8 Ratio (12.00-20.00); Blood Urea Nitrogen 10.4 mg/dL (9.0-27.0); Calcium 8.2 mg/dL (8.7-10.3); Carbon Dioxide 24.7 mmol/L (21.6-31.8); Globulin 1.9 g/dL (1.6-3.3); Non-African American GFR(CKD) 118.5 (60.0-200.0); Potassium 4.2 mmol/L (3.5-5.5); Total Bilirubin 1.2 mg/dL (0.30-1.20); Total Protein 5.2 g/dL (6.2-8.2)
--- NOTE | 2021-05-06 13:43 | P.PN ---
Subjective Progress Note Date: 05/06/21 Feels okay today still weak onstitutional: No acute distress, conversant, pleasant Eyes: Anicteric sclerae, moist conjunctiva, no lid-lag PERRLA ENMT: NC/AT Oropharynx clear, no erythema, exudates Neck: Supple, FROM, no masses, or JVD No carotid bruits No thyromegaly Lungs: Clear to auscultation Clear to percussion Normal respiratory effort, no accessory muscle use Cardiovascular: Heart regular in rate and rhythm, No murmurs, gallops, or rubs No peripheral edema Abdominal: Soft Nontender, no guarding, rebound or rigidity Abdomen moving with respiration Normoactive bowel sounds No hepatomegaly, No splenomegaly No palpable mass No abdominal wall hernia noted Skin: Normal temperature, tone, texture, turgor No induration No subcutaneous nodules No rash, lesions No ulcers Extremities: No digital cyanosis No clubbing Pedal pulses intact and symmetrical Radial pulses intact and symmetrical Normal gait and station No calf tenderness Psychiatric:Alert and oriented to person, place and time Appropriate affect Intact judgement Neuro: Generalized weakness Acute on chronic hypoxic respiratory failure exact etiology not clear currently stable could be deterioration all the muscular dystrophy and decreased lung functioning pulmonology has been consulted also aspiration pneumonia cannot be ruled out patient has been started on IV antibiotics and steroids Muscular dystrophy Recent ovarian surgery gynecology has been consulted Anemia we will transfuse 1 unit of packed RBCs gynecology following things recent surgery Monitor closely for any signs or symptoms of bleeding Generalized weakness No evidence of PE per computed tomography scan Patient is still hypoxic but overall stable pulmonology following also continue to monitor hemoglobin Objective - Vital Signs Vital signs: Vital Signs Temp 98 F 05/06/21 11:52 Pulse 86 05/06/21 11:52 Resp 18 05/06/21 11:52 BP 110/70 05/06/21 11:52 Pulse Ox 92 L 05/06/21 11:52 Intake & Output 05/05/21 05/06/21 05/06/21 18:59 06:59 18:59 Intake Total 50 590 Balance 50 590 Intake: Intake, IV Titration 50 Amount cefTRIAXone 1 gm In 50 Sodium Chloride 0.9% 50 ml @ 100 mls/hr IVPB Q24H KEVEN Rx#:[id number] Oral 590 Other: Voiding Method Bedside Commode # Voids 3 - Labs CBC & Chem 7: 05/06/21 06:36 05/06/21 06:36 Labs: Abnormal Lab Results - Last 24 Hours (Table) 05/04/21 05/06/21 05/06/21 Range/Units 13:40 06:36 06:36 RBC 2.54 L (3.80-5.40) m/uL Hgb 7.8 L (11.4-16.0) gm/dL Hct 24.7 L (34.0-46.0) % RDW 16.7 H (11.5-15.5) % Neutrophils # (Manual) 8.27 H (1.3-7.7) k/uL Lymphocytes # (Manual) 0.67 L (1.0-4.8) k/uL Metamyelocytes # (Man) 0.10 H (0) k/uL Myelocytes # (Manual) 0.19 H (0) k/uL Creatinine 0.5 L (0.6-1.5) mg/dL BUN/Creatinine Ratio 20.80 H (12.00-20.00) Ratio Glucose 137 H (70-110) mg/dL Calcium 8.2 L (8.7-10.3) mg/dL AST 42 H (13-35) U/L ALT 47 H (8-44) U/L Alkaline Phosphatase 145 H (41-126) U/L Total Protein 5.2 L (6.2-8.2) g/dL Albumin 3.3 L (3.8-4.9) g/dL Crossmatch See Detail Microbiology - Last 24 Hours (Table) 05/04/21 17:21 Blood Culture - Preliminary Blood No Growth after 24 hours
[2021-05-06] MEDS: ACYCLOVIR 200 MG CAP PO SCH (20:59)
[2021-05-07] MEDS: methylPREDNISolone SOD SUCCI 40 MG/ML 1 ML VIAL IV SCH (05:32)
[2021-05-07] MEDS: PANTOPRAZOLE 40 MG/10 ML VIAL IV SCH (08:10)
[2021-05-07 08:22] LABS: Anisocytosis Slight; Hypochromasia Slight; MCH 30.8 pg (25.0-35.0); MCHC 31.8 g/dL (31.0-37.0); MCV 96.9 fL (80.0-100.0); Macrocytosis Slight; Mean Platelet Volume 8.5; Platelet Count 405 k/uL (150-450); Poikilocytosis Slight; RDW 16.6 % (11.5-15.5)
[2021-05-07] MEDS ORDERED: MECLIZINE 12.5 MG TAB PO PRN (08:29)
[2021-05-07 08:31] LABS: HGB 9.9 gm/dL (11.4-16.0)
[2021-05-07] MEDS: PREGABALIN 75 MG CAP PO SCH ×3 (10:22→21:05)
[2021-05-07] MEDS: ATORVASTATIN 10 MG TAB PO SCH ×2 (10:22→10:25)
[2021-05-07] MEDS: CHOLECALCIFEROL 125 MCG (5000 IU) TABLET PO SCH (10:24)
[2021-05-07] MEDS: OXYBUTYNIN XL 5 MG TAB.ER.24 PO SCH (10:24)
[2021-05-07 11:27] LABS: Band Neutrophils % 2 %; Lymphocytes # (M) 1.49 k/uL (1.0-4.8); Monocytes # (M) 0.89 k/uL (0-1.0); Myelocytes # (M) 0.45 k/uL (0); Myelocytes % 3 %; Neutrophils % (M) 81 %; Nucleated Red Blood Cells 2 /100 WBC (0-0); Total Cells Counted 200; WBC 14.9 k/uL (3.8-10.6)
[2021-05-07 11:39] LABS: Polychromasia Present
[2021-05-07 12:30] LABS: African American GFR (CKD) 129.4 (60.0-200.0); Albumin 3.4 g/dL (3.8-4.9); Albumin/Globulin Ratio 1.7 (1.60-3.17); Anion Gap 11.8 mmol/L (4.00-12.00); BUN/Creat Ratio 23.67 Ratio (12.00-20.00); Blood Urea Nitrogen 14.2 mg/dL (9.0-27.0); Calcium 8.5 mg/dL (8.7-10.3); Carbon Dioxide 24.2 mmol/L (21.6-31.8); Non-African American GFR(CKD) 111.6 (60.0-200.0); Potassium 4.4 mmol/L (3.5-5.5); Total Bilirubin 2.4 mg/dL (0.30-1.20); Total Protein 5.4 g/dL (6.2-8.2)
--- NOTE | 2021-05-07 13:23 | P.PN ---
Subjective patient was seen and evaluated by me this morning. She continues to complain of shortness of breath and feels that she is not ready to go home yet. oxygen requirement increased and she is currently on 4-5 L of oxygen. Typically she is not on any oxygen at home. Objective - Vital Signs Vital signs: Vital Signs Temp 98.4 F 05/07/21 05:00 Pulse 84 05/07/21 08:30 Resp 18 05/07/21 08:30 BP 104/71 05/07/21 05:00 Pulse Ox 94 L 05/07/21 07:40 Intake & Output 05/06/21 05/07/21 05/07/21 18:59 06:59 18:59 Intake Total 2250 840 Balance 2250 840 Intake: Intake, IV Titration 50 300 Amount Azithromycin 500 mg In 250 Sodium Chloride 0.9% 250 ml @ 250 mls/hr IVPB DAILY@2200 KEVEN Rx#: [id number] cefTRIAXone 1 gm In 50 50 Sodium Chloride 0.9% 50 ml @ 100 mls/hr IVPB Q24H KEVEN Rx#:[id number] Oral 1580 540 Blood Product 620 Rc As-1 Unit 310 [id number] Other: Voiding Method Bedside Commode Bedside Commode # Voids 4 2 # Bowel Movements 2 - Exam General: The patient is awake and alert, in no distress Eye: there is normal conjunctiva bilaterally. Neck: The neck is supple, there is no JVD. Cardiovascular: Normal S1-S2, no S3-S4, no murmurs. Respiratory: Lungs clear to auscultation bilaterally Gastrointestinal: Abdomen is soft, nontender Musculoskeletal: There is no pedal edema. Neurological:. Speech is normal. Skin: Skin is warm and dry - Labs CBC & Chem 7: 05/07/21 06:40 05/07/21 06:40 Labs: Abnormal Lab Results - Last 24 Hours (Table) 05/04/21 05/07/21 05/07/21 Range/Units 13:40 06:40 06:40 WBC 14.9 H (3.8-10.6) k/uL RBC 3.20 L (3.80-5.40) m/uL Hgb 9.9 L D (11.4-16.0) gm/dL Hct 31.0 L (34.0-46.0) % RDW 16.6 H (11.5-15.5) % Neutrophils # (Manual) 12.30 H (1.3-7.7) k/uL Myelocytes # (Manual) 0.45 H (0) k/uL Nucleated RBCs 2 H (0-0) /100 WBC BUN/Creatinine Ratio 23.67 H (12.00-20.00) Ratio Glucose 141 H (70-110) mg/dL Calcium 8.5 L (8.7-10.3) mg/dL Total Bilirubin 2.40 H (0.30-1.20) mg/dL AST 40 H (13-35) U/L Alkaline Phosphatase 149 H (41-126) U/L Total Protein 5.4 L (6.2-8.2) g/dL Albumin 3.4 L (3.8-4.9) g/dL Crossmatch See Detail Microbiology - Last 24 Hours (Table) 05/04/21 17:21 Blood Culture - Preliminary Blood No Growth after 48 hours Assessment and Plan Assessment: this is a 45-year-old female with complex past medical history noted below significant for myotonic muscular dystrophy who presented to the emergency room with low oxygen levels at home. Patient was evaluated in the ER and CT angiogram showed no evidence of PE. There was a questionable bilateral atelectasis versus pneumonia. Patient was admitted to the hospital for further evaluation. 1. Acute hypoxic respiratory failure currently on 4-5 L of oxygen not on home O2 2. Suspected bilateral pneumonia, less likely clinically,started on IV antibiotic empirically. I would obtain pro-calcitonin for further evaluation. 3. Underlying myotonic muscular dystrophy with reduced underlying lung capacity and chronic elevation of the right hemidiaphragm (noncompliant with BiPAP at home) 4. Recent exploratory laparoscopy with pelvic washing and left salpingo-o ophorectomy today, I reviewed her medication list and lab work results. Patient will most likely need to go home with oxygen. Advised extensively regarding compliance with BiPAP. Patient was started on IV Solu-Medrol on presentation which I would transition to oral prednisone today.
[2021-05-07] MEDS: KETOROLAC 30 MG/ML 1 ML VIAL IVP PRN ×2 (13:52→21:06)
[2021-05-07] MEDS ORDERED: AZITHROMYCIN 500 MG TAB PO SCH (21:00)
[2021-05-07] MEDS ORDERED: NON FORMULARY DRUG (Acyclovir [Acyclovir] 400 MG Tablet) PO SCH (21:00)
[2021-05-07] MEDS: ESCITALOPRAM 20 MG TAB PO SCH (21:05)
[2021-05-07] MEDS: ACYCLOVIR 200 MG CAP PO SCH (21:05)
[2021-05-07] MEDS: guanFACINE 1 MG TAB PO SCH (21:05)
[2021-05-08] MEDS: ATORVASTATIN 10 MG TAB PO SCH (08:43)
[2021-05-08] MEDS: CHOLECALCIFEROL 125 MCG (5000 IU) TABLET PO SCH (08:43)
[2021-05-08] MEDS: OXYBUTYNIN XL 5 MG TAB.ER.24 PO SCH (08:43)
[2021-05-08] MEDS: predniSONE 20 MG TAB PO SCH (08:44)
[2021-05-08] MEDS: PANTOPRAZOLE 40 MG TABLET PO SCH (08:44)
--- NOTE | 2021-05-08 09:36 | XR ---
EXAMINATION TYPE: XR chest 1V portable DATE OF EXAM: 05/08/2021 COMPARISON: 05/04/2021 HISTORY: 45 years Female. STUDY INDICATION GIVEN: worse hypoxia . TECHNIQUE: AP chest radiograph IMPRESSION: Low lung volumes similar to prior study. Bibasilar right greater than left airspace opacities and atelectasis no significant change since prio r. Trace new left pleural effusion. No significant effusion on the right.No pneumothorax. Nonenlarged cardiomediastinal silhouette. Stable osseous structures and upper abdomen cholecystectomy clips again noted.
--- NOTE | 2021-05-08 11:23 | P.PN ---
Subjective Progress Note Date: 05/08/21 Patient no new complaints today. Tolerated BiPAP overnight, down treated oxygen to 4 L of oxygen from 5 L. Objective - Vital Signs Vital signs: Vital Signs Temp 98.2 F 05/08/21 05:00 Pulse 60 05/08/21 05:00 Resp 18 05/08/21 05:00 BP 93/66 05/08/21 05:00 Pulse Ox 93 L 05/08/21 05:00 Intake & Output 05/07/21 05/08/21 05/08/21 18:59 06:59 18:59 Intake Total 400 Balance 400 Intake: Intake, IV Titration 250 Amount Azithromycin 500 mg In 250 Sodium Chloride 0.9% 250 ml @ 250 mls/hr IVPB DAILY@2200 COUNTS INCLUDE 234 BEDS AT THE [facility] Rx#: [id number] Oral 150 Other: Voiding Method Bedside Commode # Voids 4 1 # Bowel Movements 1 1 - Exam Gen: awake, alert HEENT: normocephalic, atraumatic, good hearing acuity, moist mucous membranes Resp: Diminished air exchange, breathing comfortably with no accessory muscle use, bilateral crackles CVS: good distal perfusion x 4, regular rate and rhythm GI: soft, NTTP, ND : no SPT, no CVAT, muñoz catheter not present MSK: Mild pitting edema, no clubbing Neuro: non-focal, moving all extremities Psych: cooperative, euthymic mood - Labs CBC & Chem 7: 05/07/21 06:40 05/07/21 06:40 Labs: Abnormal Lab Results - Last 24 Hours (Table) 05/07/21 05/07/21 05/07/21 Range/Units 06:40 06:40 06:40 WBC 14.9 H (3.8-10.6) k/uL Neutrophils # (Manual) 12.30 H (1.3-7.7) k/uL Myelocytes # (Manual) 0.45 H (0) k/uL Nucleated RBCs 2 H (0-0) /100 WBC BUN/Creatinine Ratio 23.67 H (12.00-20.00) Ratio Glucose 141 H (70-110) mg/dL Calcium 8.5 L (8.7-10.3) mg/dL Total Bilirubin 2.40 H (0.30-1.20) mg/dL AST 40 H (13-35) U/L Alkaline Phosphatase 149 H (41-126) U/L Total Protein 5.4 L (6.2-8.2) g/dL Albumin 3.4 L (3.8-4.9) g/dL Procalcitonin 0.12 H (0.02-0.09) ng/mL Microbiology - Last 24 Hours (Table) 05/04/21 17:21 Blood Culture - Preliminary Blood No Growth after 72 hours Assessment and Plan Assessment: this is a 45-year-old female with complex past medical history noted below significant for myotonic muscular dystrophy who presented to the emergency room with low oxygen levels at home. Patient was evaluated in the ER and CT eddie ogram showed no evidence of PE. There was a questionable bilateral atelectasis versus pneumonia. Patient was admitted to the hospital for further evaluation. Acute hypoxemic respiratory failure, improving Volume overload, worsening Myotonic muscular dystrophy, chronic, stable Recent Covid infection Recent exploratory laparoscopy with pelvic washing and left salpingo- oophorectomy -Oxygen when necessary, reduce as able -Chest x-ray today demonstrated left pleural effusion as well as increased vascular prominence -Started Lasix 40 mg IV twice a day -Continue prednisone, nebulizers, BiPAP -Can discontinue antibiotics, pneumonia ruled out Lovenox for DVT prophylaxis Patient is a full code
[2021-05-08] MEDS: FUROSEMIDE 10 MG/ML 4 ML VIAL IV SCH ×2 (13:29→21:07)
[2021-05-08] MEDS: ENOXAPARIN 40 MG/0.4 ML SYRINGE SQ SCH (13:32)
[2021-05-08] MEDS: guanFACINE 1 MG TAB PO SCH (21:07)
[2021-05-08] MEDS: ESCITALOPRAM 20 MG TAB PO SCH (21:07)
[2021-05-08] MEDS: PREGABALIN 75 MG CAP PO SCH (21:07)
[2021-05-08] MEDS: ACYCLOVIR 200 MG CAP PO SCH (21:07)
[2021-05-09 05:51] VITALS: TEMP 97.5
[2021-05-09] MEDS: predniSONE 20 MG TAB PO SCH (07:14)
[2021-05-09] MEDS: FUROSEMIDE 10 MG/ML 4 ML VIAL IV SCH (07:14)
[2021-05-09] MEDS: ENOXAPARIN 40 MG/0.4 ML SYRINGE SQ SCH (07:14)
[2021-05-09] MEDS: ATORVASTATIN 10 MG TAB PO SCH (07:15)
[2021-05-09] MEDS: OXYBUTYNIN XL 5 MG TAB.ER.24 PO SCH (07:15)
[2021-05-09] MEDS: PANTOPRAZOLE 40 MG TABLET PO SCH (07:15)
[2021-05-09] MEDS: CHOLECALCIFEROL 125 MCG (5000 IU) TABLET PO SCH (07:15)
[2021-05-09] MEDS: IBUPROFEN 600 MG TAB PO PRN ×2 (07:15→13:50)
--- NOTE | 2021-05-09 10:28 | CDI ---
Documentation Clarification Form Date: 05/09/2021 09:17:59 AM From: Nikky Corona RN,CCDS Admit Date: 05/04/2021 03:13:00 PM Patient Name: Oly Hermosillo Visit Number: [id number] Discharge Date: ATTENTION: The Clinical Documentation Specialists (CDI) and [facility] Coding Staff appreciate your assistance in clarifying documentation. Please respond to the clarification below the line at the bottom and electronically sign. The CDI & [facility] Coding staff will review the response and follow-up if needed. Please note: Queries are made part of the Legal Health Record. If you have any questions, please contact the author of this message via ITS. Dr. Xiomara Malik There is documentation of Volume overload, 05/08, medicine progress note. Additional clarification is requested. History/Risk Factors: 45-year-old female presents to the ED with shortness of breath. Recent laparoscopic right Salpino-Oophorectomy 05/02. Medical history: Muscular Dystrophy resulting in 50% lung capacity, BiPAP at night, COVID pneumonia 04/07 Clinical Indicators VSS 05/04: B/P 95/65, HR 107, Temp 97.8 F Oral, RR 20, SpO2 87% room air. CTA 05/04: Bibasilar atelectasis and/ or less likely consolidation redemonstrated. CXR 05/04: Poor inspiration with bibasilar atelectasis and or less likely infiltrates. CXR 05/08: Low lung volumes similar to prior study. Bibasilar right greater than left airspace opacites and atelectasis no significant change since prior. Trace new left pleural effusion. ECHO: 04/03 Borderline concentric left ventricular systolic function is normal with, an EF 55-60% . LA is mildly dilated 29-33% ml/m2. Mild mitral regurgitation is present. Mild tricuspid regurgitation present. Treatment: 05/04 1L 0.9NS 1 Liter bolus, 05/08 to current Lasix 40mg IV Q12HR KEVEN Can you please clarify volume overload? [ x ] Volume overload due to blood transfusion [ ] Acute Diastolic Heart Failure [ ] Other, please specify [ ] Unable to determine (Template Last Revised: August 2020) MTDD
[2021-05-09 10:34] LABS: African American GFR (CKD) >90 (>60 ml/min/1.73 sqM); Blood Urea Nitrogen 21 mg/dL (7-17); Calcium 8.6 mg/dL (8.4-10.2); Chloride 96 mmol/L (98-107); Glucose 71 mg/dL (74-99); Magnesium 2.2 mg/dL (1.6-2.3); Non-African American GFR(CKD) >90 (>60 ml/min/1.73 sqM); Potassium 4.3 mmol/L (3.5-5.1); Sodium 138 mmol/L (137-145)
[2021-05-09 10:41] LABS: Anion Gap 3 mmol/L
[2021-05-09 10:43] LABS: Anisocytosis Slight; Carbon Dioxide 39 mmol/L (22-30); HCT 33.5 % (34.0-46.0); HGB 10.7 gm/dL (11.4-16.0); Hypochromasia Slight; MCH 30.7 pg (25.0-35.0); MCHC 31.8 g/dL (31.0-37.0); MCV 96.3 fL (80.0-100.0); Macrocytosis Slight; Mean Platelet Volume 9.8; Platelet Count 432 k/uL (150-450); RBC 3.48 m/uL (3.80-5.40); RDW 16.6 % (11.5-15.5)
[2021-05-09 12:03] VITALS: BP 97/65; PULSE 74; RESP 19
--- NOTE | 2021-05-09 13:30 | P.DS ---
Providers Date of admission: 05/04/21 15:13 Expected date of discharge: 05/09/21 Attending physician: Jocelin Nugent MD Consults: 05/04/21 15:14 Consult Physician Routine Consulting Provider: Evelyn Peralta Consult Reason/Comments: recent surgery, anemia post operative Do you want consulting provider notified?: Yes 05/04/21 15:15 Consult Physician Routine Consulting Provider: Cris Terrell Consult Reason/Comments: hypoxia, myotonic dystrophy Do you want consulting provider notified?: Yes Primary care physician: Janis Billy Hospital Course: Acute hypoxemic respiratory failure, improving Volume overload, worsening Myotonic muscular dystrophy, chronic, stable Recent Covid infection Recent exploratory laparoscopy with pelvic washing and left salpingo-ooph orectomy This is a 45-year-old female with complex past medical history significant for myotonic muscular dystrophy, recent COVID infection, who presented to the emergency room with low oxygen levels at home. Patient was evaluated in the ER and CT angiogram showed no evidence of PE. There was a questionable bilateral atelectasis versus pneumonia. Patient was admitted to the hospital for further evaluation. She was started on prednisone, abx, nebulizers and resumed on home BIPAP when needed. She was seen in consultation by pulmonology, who advised that due to patient's worsening MMD, she would likely need home oxygen on discharge. Pt did have a 1U PRBC blood transfusion when her Hgb was 7.8, and afterwards developed slighly worse oxygen requirement from 3 to 5 Lpm of NC. She was provided lasix IV for additional 24 hours and was able to return back to 3L requirement. Pt was discharged home with home care and instructions to f/u with pulmonary medicine in [facility]. Prednisone d/c'd on discharge. I spent 38 minutes coordinating this complex discharge. Assessment: Gen: awake, alert HEENT: normocephalic, atraumatic, good hearing acuity, moist mucous membranes Resp: Diminished air exchange, breathing comfortably with no accessory muscle use, bilateral crackles CVS: good distal perfusion x 4, regular rate and rhythm GI: soft, NTTP, ND : no SPT, no CVAT, muñoz catheter not present MSK: Mild pitting edema, no clubbing Neuro: non-focal, moving all extremities Psych: cooperative, euthymic mood Patient Condition at Discharge: Good Plan - Discharge Summary Discharge Rx Participant: No New Discharge Prescriptions: Continue RX: guanFACINE HCL [guanFACINE HCL ER] 1 mg PO HS RX: Escitalopram [Lexapro] 20 mg PO HS RX: Pregabalin [Lyrica] 75 mg PO DAILY RX: Meclizine [Antivert] 12.5 mg PO DAILY PRN PRN Reason: Vertigo RX: Tolterodine ER [Detrol LA] 2 mg PO DAILY RX: Cholecalciferol (Vitamin D3) [Vitamin D3 (125 MCG = 5,000 IU)] 125 mcg PO DAILY RX: Acyclovir 400 mg PO HS RX: Rosuvastatin Calcium [Crestor] 5 mg PO DAILY Discharge Medication List RX: Acyclovir 400 mg PO HS 03/29/21 [History] RX: Cholecalciferol (Vitamin D3) [Vitamin D3 (125 MCG = 5,000 IU)] 125 mcg PO DAILY 03/29/21 [History] RX: Escitalopram [Lexapro] 20 mg PO HS 03/29/21 [History] RX: guanFACINE HCL [guanFACINE HCL ER] 1 mg PO HS 03/29/21 [History] RX: Meclizine [Antivert] 12.5 mg PO DAILY PRN 05/04/21 [History] RX: Pregabalin [Lyrica] 75 mg PO DAILY 05/04/21 [History] RX: Rosuvastatin Calcium [Crestor] 5 mg PO DAILY 05/04/21 [History] RX: Tolterodine ER [Detrol LA] 2 mg PO DAILY 05/04/21 [History] Follow up Appointment(s)/Referral(s): Janis Billy MD [Primary Care Provider] - 1-2 days Discharge Disposition: HOME WITH HOME HEALTH SERVICES
[2021-05-09 14:11] LABS: Band Neutrophils % 1 %; Eosinophils # (M) 0.24 k/uL (0-0.7); Metamyelocytes # (M) 0.12 k/uL (0); Metamyelocytes % 1 %; Myelocytes # (M) 0.36 k/uL (0); Myelocytes % 3 %; Neutrophils % (M) 71 %; Nucleated Red Blood Cells 1 /100 WBC (0-0); Total Cells Counted 200
[2021-05-09 14:13] LABS: Poikilocytosis (M) Present; Polychromasia Present
== END 2021-05-09 17:22 | disposition home health service (06) | DRG 811 ==
LOC: EC 12:06 → 3SCARD 15:13 → 5NMEDONC 20:27
PROVIDERS: ADMIT Internal Medicine; ATTEND Internal Medicine
PROC: 30233N1 Transfusion of Nonautologous Red Blood Cells into Peripheral Vein, Percutaneous Approach (ICD-10-PCS; principal; 2021-05-06)
PROC: 5A09357 Assistance with Respiratory Ventilation, Less than 24 Consecutive Hours, Continuous Positive Airway Pressure (ICD-10-PCS; 2021-05-08)
DX: D64.9 Anemia, unspecified (principal); J96.21 Acute and chronic respiratory failure with hypoxia; K66.1 Hemoperitoneum; J98.11 Atelectasis; J90 Pleural effusion, not elsewhere classified; B00.89 Other herpesviral infection; I45.89 Other specified conduction disorders; E87.70 Fluid overload, unspecified; Z20.822 Contact with and (suspected) exposure to COVID-19; Z86.16 Personal history of COVID-19; G71.11 Myotonic muscular dystrophy; F41.9 Anxiety disorder, unspecified; F32.A Depression, unspecified; Z90.49 Acquired absence of other specified parts of digestive tract; Z98.51 Tubal ligation status; Z90.89 Acquired absence of other organs; Z90.721 Acquired absence of ovaries, unilateral; Z98.890 Other specified postprocedural states; J98.6 Disorders of diaphragm; R26.81 Unsteadiness on feet; R32 Unspecified urinary incontinence; Z79.899 Other long term (current) drug therapy; Z82.49 Family history of ischemic heart disease and other diseases of the circulatory system; Z86.72 Personal history of thrombophlebitis; Z91.19 Patient's noncompliance with other medical treatment and regimen; Z91.81 History of falling; H02.403 Unspecified ptosis of bilateral eyelids; Z88.5 Allergy status to narcotic agent; Z82.69 Family history of other diseases of the musculoskeletal system and connective tissue
CPT/HCPCS: 36415; 71045; 71275; 74176; 80048; 80053; 82272; 83605; 83735; 83880; 84145; 84484; 85025; 85610; 85730; 86850; 86900; 86901; 86920; 87040; 87635; 93005; 94760; 96360; 96361; 99291